=== PATIENT | female | born 1945 | race African-American/Black ===

== ENCOUNTER 2016-10-28 07:08 | Day surgery (SDC) | payer OTHER ==
[2016-10-27 14:55] VITALS: BMI 48.9
[2016-10-28] MEDS ORDERED: LIDOCAINE HCL/PF 2% SDV 5ML VIAL ONE (07:43)
[2016-10-28] MEDS ORDERED: PROPOFOL 40 ML ONE (07:43)
[2016-10-28 08:26] VITALS: TEMP 97.3
[2016-10-28 09:26] VITALS: BP 119/73; PULSE 80
--- NOTE | 2016-10-29 14:03 | PATH ---
Surgical Pathology Report Patient Name: REA TUBBS [facility]. Rec. #: [id number] /Age/Gender: 1945 (Age: 71) / F Account: [id number] Location: ASU-ENDOSCOPY Taken: 10/28/2016 Received: 10/28/2016 Reported: 10/29/2016 Physicians: Ian Strange M.D. Specimen(s) Received BX ILEAL POLYP Clinical History History of colon cancer, family history of colon cancer Diverticulosis, ileal polyp, patent anastomosis Final Diagnosis ILEAL POLYP, BIOPSY: ILEAL TUBULAR ADENOMA. Comment: No high grade dysplasia identified and examined material. Electronically Signed Apolinar Austin M.D. Gross Description Received in formalin, labeled "biopsy ileal polyp" is a pineda, irregular portion of soft tissue measuring 0.3 cm in greatest dimension. The specimen is submitted in toto in one cassette. /10/28/201610/28/2016
== END 2016-10-28 09:25 | disposition home or self-care (01) ==
LOC: JASU-ENDO 07:08
PROVIDERS: ATTEND Internal Medicine Gastroenterology
PROC: 0DBB8ZX Excision of Ileum, Via Natural or Artificial Opening Endoscopic, Diagnostic (ICD-10-PCS; principal; 2016-10-28 08:00)
DX: Z12.11 Encounter for screening for malignant neoplasm of colon (principal); Z85.038 Personal history of other malignant neoplasm of large intestine; K57.30 Diverticulosis of large intestine without perforation or abscess without bleeding; K63.5 Polyp of colon; K64.8 Other hemorrhoids
CPT/HCPCS: 88305-TC

== ENCOUNTER 2018-01-31 12:11 | Inpatient (IN) | payer OTHER ==
--- NOTE | 2018-01-31 13:08 | PDOC ---
History of Present Illness - General History Source: Patient Exam Limitations: No Limitations - History of Present Illness Initial Comments: 01/31/18 13:17 Patient is a 72-year-old female with past medical history of colon cancer status post resection in 2001, diabetes, hypertension, hyperlipidemia, kidney stones, obesity, DVT, PE, hemorrhoids status post banding on 01/25/18, who presents to the emergency department today for right lower quadrant pain, nausea and vomiting. Patient states that when she went home from the hospital on 01/26/18 she felt well and had no residual symptoms. She woke up this morning unable to keep any food or fluids down. She states that her pain started last night and kept her up as she cannot get comfortable. She tried taking Tylenol this morning however she vomited it shortly after taking it. Denies fevers, chills, sore throat, shortness of breath, difficulty breathing, chest pain, palpitations, edema, diarrhea, constipation, frequency, urgency and hematuria. PCP: Dr. Hien Sparks GI: Dr. Collado <Lani Zarco - Last Filed: 02/01/18 10:13> <Megan Corcoran - Last Filed: 02/01/18 12:21> - General Chief Complaint: Pain, Acute Stated Complaint: VOMITTING Time Seen by Provider: 01/31/18 12:25 Past History - Travel Traveled outside of the country in the last 30 days: Yes Close contact w/someone who was outside of country & ill: No - Past Medical History Asthma: No Cancer: Yes (colon) Cardiac Disorders: Yes (P.E) COPD: No Diabetes: Yes GI Disorders: Yes (COLON POLYPS) HTN: Yes Hypercholesterolemia: Yes Kidney Stones: Yes - Surgical History Abdominal Surgery: Yes (COLON RESECTION) Cholecystectomy: Yes Lung Surgery: Yes (clot extravagation) - Suicide/Smoking/Psychosocial Hx Smoking History: Former smoker Have you smoked in the past 12 months: No If you are a former smoker, when did you quit?: 2001 Information on smoking cessation initiated: No Hx Alcohol Use: No Drug/Substance Use Hx: No Substance Use Type: None <Lani Zarco - Last Filed: 02/01/18 10:13> <Megan Corcoran - Last Filed: 02/01/18 12:21> - Past Medical History Allergies/Adverse Reactions: Allergies Allergy/AdvReac Type Severity Reaction Status Date / Time apple Allergy Verified 01/22/18 02:37 pear Allergy Verified 01/22/18 02:38 simethicone Allergy Verified 01/20/18 17:36 GAS RELIEF TABLET Allergy Severe ANAPHYLAXIS Uncoded 01/20/18 09:58 Home Medications: Ambulatory Orders Amlodipine Besylate [Norvasc -] 5 mg PO DAILY 12/04/14 Enalapril Maleate [Vasotec -] 20 mg PO BID 12/04/14 Lovastatin 40 mg PO HS 12/04/14 Metoprolol Tartrate [Lopressor -] 25 mg PO BID 12/04/14 Warfarin Na [Coumadin -] 5 mg PO DAILY 12/04/14 Ergocalciferol (Vitamin D2) [Vitamin D2] 2,000 unit PO DAILY 10/27/16 Glipizide 5 mg PO DAILY 10/27/16 Latanoprost 0.005% Eye Drops [Xalatan 0.005% Eye Drops -] 1 drop OP HS 10/27/16 Warfarin Sodium [Coumadin] 1 mg PO SUSA 10/27/16 metFORMIN HCL [Glucophage -] 500 mg PO DAILY 10/27/16 Acetaminophen [Tylenol .Regular Strength -] 325 mg PO Q4HPO PRN tablet Albuterol 0.083% Nebulizer Sapna [Ventolin 0.083% Nebulizer Soln -] 1 amp NEB Q4H PRN 90 Days #90 amp 01/26/18 Budesonide/Formeterol Fumarate [SYMBICORT 160/4.5mcg -] 2 puff IH BID inhaler 01/26/18 Pantoprazole Sodium [Protonix -] 20 mg PO DAILY tablet.ec 01/26/18 Polyethylene Glycol 3350 [Miralax 119 gm Btl -] 17 gm PO DAILY bottle 01/26/18 Review of Systems - Review of Systems Able to Perform ROS?: Yes Comments:: 01/31/18 13:14 CONSTITUTIONAL: Absent: fever, chills, diaphoresis, generalized weakness, malaise, loss of appetite HEENT: Absent: rhinorrhea, nasal congestion, throat pain, throat swelling, difficulty swallowing, mouth swelling, ear pain, eye pain, visual Changes CARDIOVASCULAR: Absent: chest pain, loss of consciousness, palpitations, irregular heart rate, peripheral edema RESPIRATORY: Absent: cough, shortness of breath, dyspnea with exertion, orthopnea, wheezing, stridor, hemoptysis GASTROINTESTINAL: Present: R lower abdominal pain, nausea, vomiting. Absent: abdominal distension , diarrhea, constipation, melena, hematochezia GENITOURINARY: Absent: dysuria, frequency, urgency, hesitancy, hematuria, flank pain, genital pain MUSCULOSKELETAL: Absent: myalgia, arthralgia, joint swelling SKIN: Absent: rash, itching, pallor HEMATOLOGIC/IMMUNOLOGIC: Absent: easy bleeding, easy bruising, lymphadenopathy, frequent infections ENDOCRINE: Absent: unexplained weight gain, unexplained weight loss, heat intolerance, cold intolerance NEUROLOGIC: Absent: headache, focal weakness or paresthesias, dizziness, unsteady gait, seizure, mental status changes, bladder or bowel incontinence PSYCHIATRIC: Absent: anxiety, depression, suicidal or homicidal ideation, hallucinations. Is the patient limited Uzbek proficient: No <Lani Zarco - Last Filed: 02/01/18 10:13> *Physical Exam - Vital Signs Last Vital Signs Temp Pulse Resp BP Pulse Ox 98.3 F 88 20 141/74 99 01/31/18 12:23 01/31/18 12:23 01/31/18 12:23 01/31/18 12:23 01/31/18 12:23 - Physical Exam Comments: 01/31/18 13:15 GENERAL: Well developed, well nourished. Awake and alert. In mild distress, laying on exam bed appears uncomfortable. HEENT: Normocephalic, atraumatic. PERRLA, EOMI. No conjunctival pallor. Sclera are non- icteric. Moist mucous membranes. Oropharynx is clear. NECK: Supple. Full ROM. No JVD. Carotid pulses 2+ and symmetric, without bruits. No thyromegaly. No lymphadenopathy. CARDIOVASCULAR: Regular rate and rhythm. No murmurs, rubs, or gallops. Distal pulses are 2+ and symmetric. PULMONARY: No evidence of respiratory distress. Lungs clear to auscultation bilaterally. No wheezing, rales or rhonchi. ABDOMINAL: TTP of the R lower quadrant/flank. (+) rovsing sign. Soft. Non-tender. Non- distended. No guarding. No organomegaly. Normoactive bowel sounds. MUSCULOSKELETAL Normal range of motion at all joints. No bony deformities or tenderness. No CVA tenderness. EXTREMITIES: No cyanosis. No clubbing. No edema. No calf tenderness. SKIN: Warm and dry. Normal capillary refill. No rashes. No jaundice. NEUROLOGICAL: Alert, awake, appropriate. Cranial nerves 2-12 intact. No deficits to light touch and temperature in face, upper extremities and lower extremities. No motor deficits in the in face, upper extremities and lower extremities. Normoreflexic in the upper and lower extremities. Normal speech. Toes are down- going bilaterally. Gait is normal without ataxia. PSYCHIATRIC: Cooperative. Good eye contact. Appropriate mood and affect. <Lani Zarco - Last Filed: 02/01/18 10:13> - Vital Signs Last Vital Signs Temp Pulse Resp BP Pulse Ox 97.6 F 86 18 122/63 97 02/01/18 07:06 02/01/18 07:06 02/01/18 07:06 02/01/18 07:06 02/01/18 03:00 <Megan Corcoran - Last Filed: 02/01/18 12:21> ED Treatment Course - LABORATORY CBC & Chemistry Diagram: 02/01/18 06:40 02/01/18 06:40 <Lani Zarco - Last Filed: 02/01/18 10:13> - LABORATORY CBC & Chemistry Diagram: 02/01/18 06:40 02/01/18 06:40 - ADDITIONAL ORDERS Additional order review: 01/31/18 15:20 RBC 4.47 MCV 75.2 L MCHC 31.2 L RDW 18.6 H MPV 9.1 Neutrophils % 88.8 H D Lymphocytes % 6.7 L D Monocytes % 3.6 L Eosinophils % 0.1 D Basophils % 0.8 - Medications Given in the ED: ED Medications Discontinued Medications Generic Name Dose Route Start Last Admin Trade Name Freq PRN Reason Stop Dose Admin Acetaminophen 1,000 mg 01/31/18 13:16 01/31/18 15:20 Ofirmev Injection - IVPB 01/31/18 13:17 1,000 mg ONCE ONE Administration Diphenhydramine HCl 12.5 mg 01/31/18 18:36 01/31/18 20:50 Benadryl Injection - IVPUSH 01/31/18 18:37 Not Given ONCE ONE Sodium Chloride 1,000 mls @ 1,000 mls/hr 01/31/18 13:16 01/31/18 15:28 Normal Saline - IV 01/31/18 14:15 1,000 mls/hr ASDIR STA Administration Sodium Chloride 1,000 mls @ 1,000 mls/hr 01/31/18 16:57 01/31/18 17:59 Normal Saline - IV 01/31/18 17:56 1,000 mls/hr ASDIR STA Administration Vancomycin HCl 1,000 mg/ 250 mls @ 166.667 mls/hr 01/31/18 17:41 01/31/18 21: 31 Dextrose IVPB 01/31/18 19:10 166.667 mls/hr ONCE ONE Administration Protocol Piperacillin Sod/Tazobactam 50 mls @ 100 mls/hr 01/31/18 17:42 01/31/18 19:57 Sod 3.375 gm/ Dextrose IVPB 01/31/18 18:11 100 mls/hr ONCE ONE Administration Protocol Sodium Chloride 1,000 mls @ 42 mls/hr 02/01/18 01:15 02/01/18 03:05 Normal Saline - IV 02/02/18 01:04 42 mls/hr ASDIR CARR[place] Administration Metoclopramide HCl 10 mg 01/31/18 18:36 01/31/18 20:50 Reglan Injection - IVPB 01/31/18 18:37 Not Given ONCE ONE Morphine Sulfate 4 mg 01/31/18 18:01 01/31/18 19:43 Morphine Injection - IVPUSH 01/31/18 18:02 4 mg ONCE ONE Administration Ondansetron HCl 4 mg 01/31/18 13:16 01/31/18 15:15 Zofran Injection IVPUSH 01/31/18 13:17 4 mg ONCE ONE Administration Ondansetron HCl 4 mg 01/31/18 18:01 01/31/18 19:43 Zofran Injection IVPUSH 01/31/18 18:02 4 mg ONCE ONE Administration Sodium Chloride 1,000 ml 01/31/18 23:37 02/01/18 00:06 Normal Saline - IV 01/31/18 23:38 1,000 ml ONCE ONE Administration <Megan Corcoran - Last Filed: 02/01/18 12:21> Medical Decision Making - Medical Decision Making 01/31/18 13:55 Patient is a 72-year-old female with past medical history of colon cancer status post resection in 2001, diabetes, hypertension, hyperlipidemia, kidney stones, obesity, DVT, PE, hemorrhoids status post banding on 01/25/18, who presents to the emergency department today for right lower quadrant pain, nausea and vomiting. On exam pt very tender in the RLQ. Past hospitalization reviewed, pt was d/c on 01/26/18 after banding for internal hemorrhoids. Possible colitis, vs diverticulitis, vs abscess vs appendicitis. 1. CBC, CMP, PT/INR, UA, UC, lactic acid 2. CTAP with oral contrast only 3. IV fluids, zofran, ofirmev 4. Re-evaluate 01/31/18 14:29 Lactic acid elevated at 2.4. Second liter of fluids ordered at this time. Pt reports some improvement of her symptoms at this time. Cr elevated to 1.5, up from 1.2 on her d/c on 01/26/18. No leukocytosis, however there is a left shift. Pt has not started drinking at this time d/t lack of pitchers in the ED. 01/31/18 16:00 Pt. reporting pain again at this time. Morphine and zofran ordered. Repeat lactic acid up to 2.9, will continue to fluid bolus the pt. Blood cultures ordered at this time and will empirically cover the pt with vancomycin and zosyn. 01/31/18 18:21 Pt refuses to drink contrast as she is still nausous. Reglan and benadryl ordered. CTAP to now be performed without oral contrast. 01/31/18 19:[address] at this time. I suspect given pain, nausea, recent surgery, elevated lactic acid that the patient will need to be hospitalized. Sign out given to DONTE Wood. <Lani Zarco - Last Filed: 02/01/18 10:13> *DC/Admit/Observation/Transfer <Lani Zarco - Last Filed: 02/01/18 10:13> - Attestations Physician Attestion: I reviewed the case with the mid-level practitioner and agree with the mid- level practitioner's assessment, diagnosis and disposition. <Megan Corcoran - Last Filed: 02/01/18 12:21> Diagnosis at time of Disposition: Renal colic on right side, Lactic acidosis
[2018-01-31] MEDS ORDERED: ONDANSETRON 4 MG/2 ML VIAL IVPUSH ONE ×2 (13:16→18:01)
[2018-01-31] MEDS ORDERED: SODIUM CHLORIDE 1,000 ML IV STA ×2 (13:16→16:57)
[2018-01-31] MEDS ORDERED: ACETAMINOPHEN 1000 MG/100 ML VIAL (NON FORMULARY) IVPB ONE (13:16)
[2018-01-31] MEDS ORDERED: ACETAMINOPHEN INJECTION 100 ML IVPB ONE (15:00)
[2018-01-31] MEDS ORDERED: ONDANSETRON 4 MG/2 ML VIAL ONE ×2 (15:01→19:29)
[2018-01-31 15:33] LABS: INR 1.6 (0.82-1.09); PROTHROMBIN TIME (PATIENT) 18.1 SEC (9.7-13.0)
[2018-01-31 15:42] LABS: BASO % 0.8 % (0-2.0); EOS % 0.1 % (0-4.5); HEMATOCRIT 33.6 % (32.4-45.2); HEMOGLOBIN 10.5 GM/dL (10.7-15.3); LYMPH % 6.7 % (8-40); MCH 23.4 pg (25.7-33.7); MCHC 31.2 g/dl (32.0-36.0); MEAN CELL VOLUME 75.2 fl (80-96); MEAN PLT VOLUME 9.1 fl (7.5-11.1); MONO % 3.6 % (3.8-10.2); NEUT % 88.8 % (42.8-82.8); PLATELET COUNT 322 K/MM3 (134-434); RBC 4.47 M/mm3 (3.60-5.2); RDW 18.6 % (11.6-15.6)
[2018-01-31 15:43] LABS: ALBUMIN 3.6 g/dl (3.4-5.0); ALK PHOS 62 U/L (45-117); ANION GAP 9 (8-16); BILIRUBIN,TOTAL 0.5 mg/dL (0.2-1.0); BLOOD UREA NITROGEN 14 mg/dL (7-18); CHLORIDE 107 mmol/L (98-107); CO2 24 mmol/L (21-32); CREATININE 1.5 mg/dL (0.55-1.02); GLUCOSE,RANDOM 205 mg/dL (74-106); SGPT/ALT 31 U/L (12-78); SODIUM 140 mmol/L (136-145); TOT PROT 7.4 g/dl (6.4-8.2)
[2018-01-31 15:45] LABS: POTASSIUM 4.4 mmol/L (3.5-5.1); SGOT/AST 23 U/L (15-37)
[2018-01-31] MEDS ORDERED: VANCOMYCIN 1,000 MG in DEXTROSE 5%-WATER - 250 ML IVPB ONE (17:41)
[2018-01-31] MEDS ORDERED: PIPERACILLIN/TAZOB 3.375 GM 3.375 GM in DEXTROSE 5%-WATER - 50 ML IVPB ONE (17:42)
[2018-01-31] MEDS ORDERED: morphine CARPU-JECT 4 MG/1 ML DISP.SYRIN IVPUSH ONE (18:01)
[2018-01-31] MEDS ORDERED: METOCLOPRAMIDE HCL INJECTION 10 MG/2 ML VIAL IVPB ONE (18:36)
[2018-01-31 18:53] LABS: PH,URINE 5.5 (5.0-8.0); URINE APPEARANCE CLEAR; URINE BILIRUBIN NEGATIVE (<2.0 mg/dL); URINE COLOR YELLOW; URINE GLUCOSE (UA) NEGATIVE (NEGATIVE); URINE KETONE NEGATIVE (NEGATIVE); URINE LEUK ESTERASE NEGATIVE (NEGATIVE); URINE NITRITE NEGATIVE (NEGATIVE); URINE UROBILINOGEN 0.2 mg/dL (0.2-1.0)
[2018-01-31] MEDS ORDERED: morphine SULFATE 4 MG/ML VIAL ONE (19:29)
[2018-01-31] MEDS ORDERED: VANCOMYCIN 1 GRAM (PRE-DOCKED) 1,000 MG/250 ML BAG IVPB ONE ×2 (19:47→21:25)
[2018-01-31] MEDS ORDERED: PIPERACILLIN/TAZOB 3.375 GM 3.375 GM/50 ML BAG IVPB ONE (19:47)
[2018-01-31] MEDS ORDERED: ONDANSETRON *ODT* 4 MG TABLET ONE (19:59)
--- NOTE | 2018-01-31 21:40 | PDOC ---
*Physical Exam - Vital Signs Last Vital Signs Temp Pulse Resp BP Pulse Ox 98.3 F 18 L 18 123/64 97 01/31/18 12:23 01/31/18 20:47 01/31/18 20:47 01/31/18 20:47 01/31/18 20:47 ED Treatment Course - LABORATORY CBC & Chemistry Diagram: 01/31/18 15:20 01/31/18 15:20 - ADDITIONAL ORDERS Additional order review: Laboratory Results 01/31/18 01/31/18 01/31/18 17:55 17:08 15:20 PT with INR INR Sodium Potassium Chloride Carbon Dioxide Anion Gap BUN Creatinine Creat Clearance w eGFR Random Glucose Lactic Acid 2.9 H* 2.4 H* Calcium Total Bilirubin AST ALT Alkaline Phosphatase Total Protein Albumin Urine Color Yellow Urine Appearance Clear Urine pH 5.5 Ur Specific [place] 1.010 Urine Protein 30 mg/dl Urine Glucose (UA) Negative Urine Ketones Negative Urine Blood Negative Urine Nitrite Negative Urine Bilirubin Negative Urine Urobilinogen 0.2 Ur Leukocyte Esterase Negative 01/31/18 01/31/18 15:20 15:20 PT with INR 18.10 H INR 1.60 H D Sodium 140 Potassium 4.4 Chloride 107 Carbon Dioxide 24 Anion Gap 9 BUN 14 Creatinine 1.5 H Creat Clearance w eGFR 34.04 Random Glucose 205 H Lactic Acid Calcium 9.0 Total Bilirubin 0.5 AST 23 ALT 31 Alkaline Phosphatase 62 D Total Protein 7.4 Albumin 3.6 Urine Color Urine Appearance Urine pH Ur Specific [place] Urine Protein Urine Glucose (UA) Urine Ketones Urine Blood Urine Nitrite Urine Bilirubin Urine Urobilinogen Ur Leukocyte Esterase 01/31/18 15:20 RBC 4.47 MCV 75.2 L MCHC 31.2 L RDW 18.6 H MPV 9.1 Neutrophils % 88.8 H D Lymphocytes % 6.7 L D Monocytes % 3.6 L Eosinophils % 0.1 D Basophils % 0.8 - Medications Given in the ED: ED Medications Discontinued Medications Generic Name Dose Route Start Last Admin Trade Name Freq PRN Reason Stop Dose Admin Acetaminophen 1,000 mg 01/31/18 13:16 01/31/18 15:20 Ofirmev Injection - IVPB 01/31/18 13:17 1,000 mg ONCE ONE Administration Diphenhydramine HCl 12.5 mg 01/31/18 18:36 01/31/18 20:50 Benadryl Injection - IVPUSH 01/31/18 18:37 Not Given ONCE ONE Sodium Chloride 1,000 mls @ 1,000 mls/hr 01/31/18 13:16 01/31/18 15:28 Normal Saline - IV 01/31/18 14:15 1,000 mls/hr ASDIR STA Administration Sodium Chloride 1,000 mls @ 1,000 mls/hr 01/31/18 16:57 01/31/18 17:59 Normal Saline - IV 01/31/18 17:56 1,000 mls/hr ASDIR STA Administration Vancomycin HCl 1,000 mg/ 250 mls @ 166.667 mls/hr 01/31/18 17:41 01/31/18 21: 31 Dextrose IVPB 01/31/18 19:10 166.667 mls/hr ONCE ONE Administration Protocol Piperacillin Sod/Tazobactam 50 mls @ 100 mls/hr 01/31/18 17:42 01/31/18 19:57 Sod 3.375 gm/ Dextrose IVPB 01/31/18 18:11 100 mls/hr ONCE ONE Administration Protocol Metoclopramide HCl 10 mg 01/31/18 18:36 01/31/18 20:50 Reglan Injection - IVPB 01/31/18 18:37 Not Given ONCE ONE Morphine Sulfate 4 mg 01/31/18 18:01 01/31/18 19:43 Morphine Injection - IVPUSH 01/31/18 18:02 4 mg ONCE ONE Administration Ondansetron HCl 4 mg 01/31/18 13:16 01/31/18 15:15 Zofran Injection IVPUSH 01/31/18 13:17 4 mg ONCE ONE Administration Ondansetron HCl 4 mg 01/31/18 18:01 01/31/18 19:43 Zofran Injection IVPUSH 01/31/18 18:02 4 mg ONCE ONE Administration Medical Decision Making - Medical Decision Making 01/31/18 19:39 Patient endorsed to me to follow up with ct scan and dispo patient out to ct scan 01/31/18 23:30 Patient Full Name: ARLEY LUCIA Patient Accession No: [id number] Patient : [id number] Reason for Exam: RLQ PAIN Referring Physician: JEANETTE GALVAN Patient Name: REA TUBBS THIS IS A PRELIMINARY REPORT FROM IMAGING PSYCHOLOGIST EXAM: CT abdomen and pelvis without contrast IMAGES:[id number] DATE OF EXAM: 2018-01-31 20:26:04 REASON FOR EXAM: Right lower quadrant pain COMPARISON: None Findings: Atelectasis and scarring in lung bases. Trace right pleural effusion. Hepatic steatosis. Mild peripheral hepatic nodularity could represent cirrhosis. Cholecystectomy. Pancreas and spleen are grossly unremarkable. Bilateral adrenal thickening, left greater than right. *Bilateral perinephric edema. Moderate right hydroureteronephrosis due to a 6 mm calculus at or just beyond the right ureterovesical junction. No intrarenal calculi. No AAA. IVC filter. Prior partial colon resection. No obvious diverticulitis, small bowel obstruction, free fluid, or free air. Hysterectomy. Individualized dose optimization techniques were used for this CT. THIS DOCUMENT HAS BEEN ELECTRONICALLY SIGNED Gee Pereira MD 01/31/2018 22:36 EST M.D. Please call Imaging Senior Clinical Research Associate [phone] ([phone]) with questions. INTERPRETING RADIOLOGIST: Gee Pereira MD Electronically Signed: Jan 31, 2018 10:37PM EDT Discharge elevation and the lactate patient will be admitted to WITH continued hydration. Case was discussed with Dr. Teran recommended OBS admission. Patient was seen and evaluated her and he controlled with pain medication. CAT scan reports discussed with Dr. Santamaria will see the patient in the morning *DC/Admit/Observation/Transfer Diagnosis at time of Disposition: Renal colic on right side, Lactic acidosis - Discharge Dispostion Decision to Admit order: Yes - Referrals Referrals: Hien Sparks [Primary Care Provider] - - Patient Instructions - Post Discharge Activity
[2018-01-31] MEDS ORDERED: SODIUM CHLORIDE 0.9% 500 ML INFUS.BAG IV ONE (23:37)
[2018-02-01] MEDS ORDERED: MORPHINE SULFATE 2 MG/ML VIAL IVPUSH PRN ×2 (01:06→16:42)
[2018-02-01] MEDS ORDERED: ONDANSETRON 4 MG/2 ML VIAL IVPUSH PRN ×4 (01:09→16:42)
[2018-02-01] MEDS ORDERED: SODIUM CHLORIDE 1,000 ML IV SCH ×3 (01:15→16:42)
--- NOTE | 2018-02-01 02:04 | HP ---
CHIEF COMPLAINT: Abdominal pain, nausea/vomiting PCP: Dr. Nuñez HISTORY OF PRESENT ILLNESS: The patient is a 72 yo f w/ PMH Colon Ca s/p resection 2001, DM, HTN, DVT/PE, Nephrolithiasis x3 who comes into the ED c/o a 1 day hx nausea, vomiting and abdominal pain. The patient began to experience suprapubic pain. She described the pain as cramping in quality, 8/10 in intensity and no exacerbating or alleviating factors. Over time, the pain moved to the patient's lower abdomen and became associated with nausea and vomiting. The patient's last solid meal was last night. The patient denies fever, chills, chest pain. Patient has SOB at baseline 2/2 her smoking history and damage from her PE. ER course was notable for: (1) CT AP showing rt sided 6mm renal stone at UVJ with right sided hydro (2) Lactic acidosis 2.4 -> 2.9 PAST MEDICAL HISTORY: DVT/PE in 2001 just prior to her colon Ca resection Colon Ca Nephrolithiasis x3. Patient had lithotrypsy twice and cysto once. HTN HLD DM PAST SURGICAL HISTORY: Colonic resection 2001 cholecystectomy thrombectomy 2001 Social History: Smoking: quit 2001 Alcohol: denies Drugs: denies Family History: Extensive family hx of cancer with multiple family members with multiple types of cancer including leukemia, colon, prostate Allergies apple Allergy (Verified 01/22/18 02:37) pear Allergy (Verified 01/22/18 02:38) simethicone Allergy (Verified 01/20/18 17:36) GAS RELIEF TABLET Allergy (Severe, Uncoded 01/20/18 09:58) ANAPHYLAXIS HOME MEDICATIONS: Home Medications Medication Instructions Recorded Amlodipine Besylate [Norvasc -] 5 mg PO DAILY 12/04/14 Enalapril Maleate [Vasotec -] 20 mg PO BID 12/04/14 Lovastatin 40 mg PO HS 12/04/14 Metoprolol Tartrate [Lopressor -] 25 mg PO BID 12/04/14 Warfarin Na [Coumadin -] 5 mg PO DAILY 12/04/14 Ergocalciferol (Vitamin D2) 2,000 unit PO DAILY 10/27/16 [Vitamin D2] Glipizide 5 mg PO DAILY 10/27/16 Latanoprost 0.005% Eye Drops 1 drop OP HS 10/27/16 [Xalatan 0.005% Eye Drops -] Warfarin Sodium [Coumadin] 1 mg PO SUSA 10/27/16 metFORMIN HCL [Glucophage -] 500 mg PO DAILY 10/27/16 Acetaminophen [Tylenol .Regular 325 mg PO Q4HPO PRN tablet 01/26/18 Strength -] Albuterol 0.083% Nebulizer Sapna 1 amp NEB Q4H PRN 90 Days #90 amp 01/26/18 [Ventolin 0.083% Nebulizer Soln -] Budesonide/Formeterol Fumarate 2 puff IH BID inhaler 01/26/18 [SYMBICORT 160/4.5mcg -] Pantoprazole Sodium [Protonix -] 20 mg PO DAILY tablet.ec 01/26/18 Polyethylene Glycol 3350 [Miralax 17 gm PO DAILY bottle 01/26/18 119 gm Btl -] REVIEW OF SYSTEMS CONSTITUTIONAL: Absent: fever, chills, diaphoresis, generalized weakness, malaise, loss of appetite, weight change HEENT: Absent: rhinorrhea, nasal congestion, throat pain, throat swelling, difficulty swallowing, mouth swelling, ear pain, eye pain, visual changes CARDIOVASCULAR: Absent: chest pain, syncope, palpitations, irregular heart rate, lightheadedness , peripheral edema RESPIRATORY: Absent: cough, orthopnea, wheezing, stridor, hemoptysis GASTROINTESTINAL: Absent: abdominal distension, diarrhea, constipation, melena, hematochezia GENITOURINARY: Absent: dysuria, frequency, urgency, hesitancy, hematuria, flank pain MUSCULOSKELETAL: Absent: myalgia, arthralgia, joint swelling, back pain, neck pain SKIN: Absent: rash, itching, pallor HEMATOLOGIC/IMMUNOLOGIC: Absent: easy bleeding, easy bruising, lymphadenopathy, frequent infections ENDOCRINE: Absent: unexplained weight gain, unexplained weight loss, heat intolerance, cold intolerance NEUROLOGIC: Absent: headache, focal weakness or paresthesias, dizziness, unsteady gait, seizure, mental status changes, bladder or bowel incontinence PSYCHIATRIC: Absent: anxiety, depression, suicidal or homicidal ideation, hallucinations. PHYSICAL EXAMINATION Vital Signs - 24 hr 01/31/18 01/31/18 12:23 20:47 Temperature 98.3 F Pulse Rate 88 Pulse Rate [ 18 L Radial] Respiratory 20 18 Rate Blood Pressure 141/74 Blood Pressure 123/64 [Left Arm] O2 Sat by Pulse 99 97 Oximetry (%) GENERAL: Awake, alert, and fully oriented, in no acute distress. HEAD: Normal with no signs of trauma. EYES: Pupils equal, round and reactive to light, extraocular movements intact, sclera anicteric, conjunctiva clear. No lid lag. EARS, NOSE, THROAT: oropharynx clear without exudates. Dry mucous membranes. NECK: Normal range of motion, supple without lymphadenopathy, JVD, or masses. LUNGS: Breath sounds equal, clear to auscultation bilaterally. No wheezes, and no crackles. No accessory muscle use. HEART: Regular rate and rhythm, normal S1 and S2 without murmur, rub or gallop. ABDOMEN: Soft, mild tenderness to palpation in lower quadrants. No CVA tenderness, not distended, normoactive bowel sounds, no guarding, no rebound, no masses. No hepatomegaly or splenomegaly. LOWER EXTREMITIES: 2+ pulses, warm, well-perfused. No calf tenderness. 1+ peripheral edema. NEUROLOGICAL: Cranial nerves II-X intact. Normal speech. Strength 5/5 in both upper extremities. PSYCHIATRIC: Cooperative. Good eye contact. Appropriate mood and affect. SKIN: Warm, dry, normal turgor, no rashes or lesions noted, normal capillary refill. Laboratory Results - last 24 hr 01/31/18 01/31/18 01/31/18 15:20 15:20 15:20 WBC 10.0 RBC 4.47 Hgb 10.5 L Hct 33.6 D MCV 75.2 L MCH 23.4 L MCHC 31.2 L RDW 18.6 H Plt Count 322 D MPV 9.1 Absolute Neuts (auto) 8.9 Neutrophils % 88.8 H D Lymphocytes % 6.7 L D Monocytes % 3.6 L Eosinophils % 0.1 D Basophils % 0.8 Nucleated RBC % 0 PT with INR 18.10 H INR 1.60 H D Sodium 140 Potassium 4.4 Chloride 107 Carbon Dioxide 24 Anion Gap 9 BUN 14 Creatinine 1.5 H Creat Clearance w eGFR 34.04 Random Glucose 205 H Lactic Acid Calcium 9.0 Total Bilirubin 0.5 AST 23 ALT 31 Alkaline Phosphatase 62 D Total Protein 7.4 Albumin 3.6 Urine Color Urine Appearance Urine pH Ur Specific Foster Urine Protein Urine Glucose (UA) Urine Ketones Urine Blood Urine Nitrite Urine Bilirubin Urine Urobilinogen Ur Leukocyte Esterase 07/01/18 07/01/18 07/01/18 15:20 17:08 17:55 WBC RBC Hgb Hct MCV MCH MCHC RDW Plt Count MPV Absolute Neuts (auto) Neutrophils % Lymphocytes % Monocytes % Eosinophils % Basophils % Nucleated RBC % PT with INR INR Sodium Potassium Chloride Carbon Dioxide Anion Gap BUN Creatinine Creat Clearance w eGFR Random Glucose Lactic Acid 2.4 H* 2.9 H* Calcium Total Bilirubin AST ALT Alkaline Phosphatase Total Protein Albumin Urine Color Yellow Urine Appearance Clear Urine pH 5.5 Ur Specific Foster 1.010 Urine Protein 30 mg/dl Urine Glucose (UA) Negative Urine Ketones Negative Urine Blood Negative Urine Nitrite Negative Urine Bilirubin Negative Urine Urobilinogen 0.2 Ur Leukocyte Esterase Negative ASSESSMENT/PLAN: The patient is a 72 yo m w/ PMH Colon ca, DVT/PE, nephrolithiasis x3 who comes in c/o nausea, vomiting, abdominal pain found to have 6mm stone. #nausea, vomiting abdominal pain 2/2 nephrolithiasis -afebrile, normal WBC -Dr. Santamaria contacted from the ED, will assess patient in the AM -Pain control 2mg morphine Q4h -Zofran 4mg q6h PRN nausea -s/p vanc, zosyn in ED -NPO #Lactic acidosis likely 2/2 dehydration -NS @ 100 -trend in AM #DM -BGM Q4H -ISS Q4H -holding home hypoglycemics #HTN -resume home norvasc 5mg -resume home vasotec 20mg BID -resume home toprolol 25 BID #DVT/PE -on coumadin; did not receive PM dose -INR subtheraputic on admission -holding in anticipation of possible procedure -bridging AC not required as PE greater than 6 months ago -AC should be resumed after procedure #FEN -NS @ 100 -lytes WNL, replete PRN -NPO #Prophylaxsis -SCDs until after procedure #Dispo -admit Med Surg Visit type - Emergency Visit Emergency Visit: Yes ED Registration Date: 01/31/18 Care time: The patient presented to the Emergency Department on the above date and was hospitalized for further evaluation of their emergent condition. - New Patient This patient is new to me today: Yes Date on this admission: 02/01/18 - Critical Care Critical Care patient: No Hospitalist Screening - Colonoscopy Questionnaire Colonoscopy Questionnaire: Colonoscopy Questionnaire - Patient: 50 - 75 years old and never had a screening colonoscopy: Unknown History of colon or rectal polyps, or CA: Yes History of IBD, Crohn's disease or UC: Unknown History of abdominal radiation therapy as a child: Unknown - Relative: 1 with colon or rectal CA, or polyps at age 60 or younger: Unknown Colon or rectal CA diagnosed at age 45 or younger: Unknown Multiple relatives with colon or rectal CA: Unknown - Outcome: Screening Result: Positive Screen
[2018-02-01] MEDS: INSULIN SLIDING SCALE (NOVOLOG) 1 VIAL SQ SCH ×6 (02:57→21:42)
[2018-02-01 03:49] VITALS: BMI 46.7
--- NOTE | 2018-02-01 06:14 | PN ---
Teaching Attending Note Name of Resident: Olivier Redman ATTENDING PHYSICIAN STATEMENT I saw and evaluated the patient. I reviewed the resident's note and discussed the case with the resident. I agree with the resident's findings and plan as documented. SUBJECTIVE: 72F with history of nephrolithiasis p/w RLQ abd pain, Nausea, vomiting, unable to tolerate PO, found to have a 6mm obstrucitng stone at Rt ureterovesicular junction with associated hydronephrosis Urology referral Zofran for nausea IVF for mild dehydration on Coumadin for DVT/PE 2001 hold until Urology eval for possible procedure
[2018-02-01] MEDS: glipiZIDE 5 MG TABLET (FP) PO SCH ×2 (06:28→06:36)
[2018-02-01 07:51] LABS: ALBUMIN 2.9 g/dl (3.4-5.0); BLOOD UREA NITROGEN 12 mg/dL (7-18); CALCIUM 8.2 mg/dL (8.5-10.1); CHLORIDE 114 mmol/L (98-107); INR 1.73 (0.82-1.09); POTASSIUM 3.7 mmol/L (3.5-5.1); PROTHROMBIN TIME (PATIENT) 19.5 SEC (9.7-13.0); SODIUM 144 mmol/L (136-145)
[2018-02-01 07:54] LABS: ACTIVATED PTT 31.8 SECONDS (25.2-36.5)
[2018-02-01 07:57] LABS: ALK PHOS 51 U/L (45-117); ANION GAP 7 (8-16); BILIRUBIN,TOTAL 0.6 mg/dL (0.2-1.0); CO2 23 mmol/L (21-32); CREATININE 1.3 mg/dL (0.55-1.02); GLUCOSE,RANDOM 112 mg/dL (74-106); MAGNESIUM 1.9 mg/dL (1.8-2.4); PHOSPHOROUS 3.2 mg/dL (2.5-4.9); SGOT/AST 17 U/L (15-37); SGPT/ALT 25 U/L (12-78)
[2018-02-01 09:06] LABS: HEMOGLOBIN 8.7 GM/dL (10.7-15.3); MCH 23.5 pg (25.7-33.7); MEAN CELL VOLUME 75.9 fl (80-96); PLATELET COUNT 270 K/MM3 (134-434); RDW 18.3 % (11.6-15.6); WHITE BLOOD COUNT 7.4 K/mm3 (4.0-10.0)
[2018-02-01] MEDS ORDERED: BUDESONIDE/FORMETEROL FUMARATE 160/4.5 mcg INHALER IH SCH (10:00)
[2018-02-01] MEDS ORDERED: amLODIPine BESYLATE 5 MG TABLET (FP) PO SCH (10:00)
[2018-02-01] MEDS ORDERED: METOPROLOL TARTRATE 25 MG TABLET (FP) PO SCH (10:00)
[2018-02-01] MEDS ORDERED: WARFARIN NA 5 MG TABLET (UD) PO SCH (10:00)
[2018-02-01] MEDS ORDERED: PANTOPRAZOLE 20 MG TABLET (FP) PO SCH (10:00)
[2018-02-01] MEDS ORDERED: ENALAPRIL MALEATE 10 MG TABLET (FP) PO SCH (10:00)
[2018-02-01] MEDS ORDERED: PT OWN MED DRAWER 7, Y5N ONE ×2 (10:35→21:08)
--- NOTE | 2018-02-01 10:40 | EKG ---
Test Reason : Blood Pressure : / mmHG Vent. Rate : 086 BPM Atrial Rate : 086 BPM P-R Int : 148 ms QRS Dur : 080 ms QT Int : 368 ms P-R-T Axes : 069 039 085 degrees QTc Int : 440 ms NORMAL SINUS RHYTHM NONSPECIFIC T WAVE ABNORMALITY ABNORMAL ECG WHEN COMPARED WITH ECG OF 20-JAN-2018 10:15, NO SIGNIFICANT CHANGE WAS FOUND Confirmed by MURRAY ORANTES MD ([id number]) on 02/01/2018 10:39:54 AM Referred By: Confirmed By:MURRAY ORANTES MD
--- NOTE | 2018-02-01 15:15 | CON.GU ---
Consult - History of Present Illness History of Present Illness: 72 yo female with h/o nephrolithiaisis, now with acute onset rt renal colic secondary to a 6mm obstructing stone in right distal ureter. elevated lactic acid, creat 1.3 - Past Medical History Cardio/Vascular: Yes: CHF, Deep Vein Thrombosis, HTN Pulmonary: Yes: COPD Gastrointestinal: Yes: Cancer, Other (ileal adenoma removed 10/17) Renal/: Yes: Renal Inusuff, Renal Calculi Musculoskeletal: Yes: Osteoarthritis Endocrine: Yes: Diabetes Mellitus (NIDDMII) Additional Medical History: Morbid obesity - Past Surgical History Past Surgical History: Yes: Cholecystectomy (EARLY , laparoscopic), Hysterectomy - Alcohol/Substance Use Hx Alcohol Use: No History of Substance Use: reports: None - Smoking History Smoking history: Former smoker Have you smoked in the past 12 months: No If you are a former smoker, when did you quit?: 2001 - Social History Usual Living Arrangement: Alone ADL: Independent History of Recent Travel: No Home Medications - Allergies Allergies/Adverse Reactions: Allergies Allergy/AdvReac Type Severity Reaction Status Date / Time apple Allergy Verified 01/22/18 02:37 pear Allergy Verified 01/22/18 02:38 simethicone Allergy Verified 01/20/18 17:36 GAS RELIEF TABLET Allergy Severe ANAPHYLAXIS Uncoded 01/20/18 09:58 - Home Medications Home Medications: Ambulatory Orders Amlodipine Besylate [Norvasc -] 5 mg PO DAILY 12/04/14 Enalapril Maleate [Vasotec -] 20 mg PO BID 12/04/14 Lovastatin 40 mg PO HS 12/04/14 Metoprolol Tartrate [Lopressor -] 25 mg PO BID 12/04/14 Warfarin Na [Coumadin -] 5 mg PO DAILY 12/04/14 Ergocalciferol (Vitamin D2) [Vitamin D2] 2,000 unit PO DAILY 10/27/16 Glipizide 5 mg PO DAILY 10/27/16 Latanoprost 0.005% Eye Drops [Xalatan 0.005% Eye Drops -] 1 drop OP HS 10/27/16 Warfarin Sodium [Coumadin] 1 mg PO SUSA 10/27/16 metFORMIN HCL [Glucophage -] 500 mg PO DAILY 10/27/16 Acetaminophen [Tylenol .Regular Strength -] 325 mg PO Q4HPO PRN tablet Albuterol 0.083% Nebulizer Sapna [Ventolin 0.083% Nebulizer Soln -] 1 amp NEB Q4H PRN 90 Days #90 amp 01/26/18 Budesonide/Formeterol Fumarate [SYMBICORT 160/4.5mcg -] 2 puff IH BID inhaler 01/26/18 Pantoprazole Sodium [Protonix -] 20 mg PO DAILY tablet.ec 01/26/18 Polyethylene Glycol 3350 [Miralax 119 gm Btl -] 17 gm PO DAILY bottle 01/26/18 Family Disease History - Family Disease History Family Disease History: Heart Disease: Son (NM age 52 ()), CA: Father ( Colon cancer dx age 80's ()), Brother (2 brothers with prostate cancer ( )), Sister (Colon cancer dx age 64 ()), Other: Mother (Stroke ( )) Physical Exam- Vital Signs: Vital Signs Temperature 98.9 F 02/01/18 10:00 Pulse Rate 91 H 02/01/18 10:00 Respiratory Rate 18 02/01/18 10:00 Blood Pressure 131/73 02/01/18 10:00 O2 Sat by Pulse Oximetry (%) 97 02/01/18 03:00 Renal/: Yes: Other (no heme) Kidneys: Yes: WNL Labs: CBC, BMP 02/01/18 06:40 02/01/18 06:40 Imaging - Results Ultrasound: Image Reviewed Problem List - Problems (1) Renal colic on right side Assessment/Plan: will plan for cysto/stent placement Code(s): N23 - UNSPECIFIED RENAL COLIC
[2018-02-01] MEDS ORDERED: PROPOFOL 20 ML ONE (15:25)
[2018-02-01] MEDS ORDERED: PROMETHAZINE HCL 25 MG/1 ML VIAL IVPUSH PRN ×2 (15:29→16:42)
[2018-02-01] MEDS ORDERED: LACTATED RINGERS SOLUTION 1,000 ML IV SCH ×2 (15:30→16:42)
[2018-02-01] MEDS ORDERED: AMPICILLIN NA/SULBACTAM NA 3 GM/100 ML PRE-DOCKED IVPB ONE (15:40)
[2018-02-01] MEDS ORDERED: AMPICILLIN NA/SULBACTAM NA 1.5 GM VIAL ONE ×2 (15:43)
--- NOTE | 2018-02-01 16:05 | OP ---
Operative Note - Note: Operative Date: 02/01/18 Pre-Operative Diagnosis: RDU stone Operation: cysto/retro/rt stent placement Findings: RDU stone Post-Operative Diagnosis: Same as Pre-op Surgeon: Fermin Santiago Anesthesia: General Drains & Tubes with Location: 7fr, 24cm stent Operative Report Dictated: Yes
--- NOTE | 2018-02-01 16:25 | PN ---
Teaching Attending Note Name of Resident: Elvira Milligan ATTENDING PHYSICIAN STATEMENT I saw and evaluated the patient. I reviewed the resident's note and discussed the case with the resident. I agree with the resident's findings and plan as documented. SUBJECTIVE:states abdominal pain is improved. states nausea and vomiting has resolved. denies Cp,SOB, fever, chills, N/V/C/D OBJECTIVE: Last Vital Signs Temp Pulse Resp BP Pulse Ox 99.3 F 86 20 143/81 97 02/01/18 15:19 02/01/18 15:19 02/01/18 15:19 02/01/18 15:19 02/01/18 03:00 General NAD CV S1 S2 RRR no murmur/rub/gallop Lungs CTA B/L no wheezing/rales/rhonchi Abdomen soft NT/ND obese Extremities no pedal edema ASSESSMENT AND PLAN: 72yo F with PMH nephrolithasis, DVT/PE s/p thrombectomy on coumadin and HTN presented to the ER with RLQ pain with nausea and vomiting 1. R nephrolithasis- hx of uric acid stones. NPO for stent placement and possible lithotripsy. cont IVF and pain control. urology consulted. received abx in the ER. will d/c as not indicated at this itme. 2. SIDDHARTH- due to dehydration. imrpoved. hold nephrotoxic agents 3. LActic acidosis- due to metformin. now resolved. hold metformin 4. Subtherapeutic INR- pt states she had hemorrhoidectomy last week and coumadin was held. just restarted 3 days ago. will re-start coumadin post procedure 5. Microcytic anemia- likely hemoconcentrated when first arrived. Hgb at baseline. will repeat CBC to ensure staying stable. no indication for transfusion 6. DVT ppx- coumadin 7. possible d/c after procedure pending if any complication
[2018-02-01 20:38] LABS: HEMATOCRIT 30.1 % (32.4-45.2); HEMOGLOBIN 9.2 GM/dL (10.7-15.3); MCH 23.3 pg (25.7-33.7); MCHC 30.5 g/dl (32.0-36.0); MEAN CELL VOLUME 76.2 fl (80-96); MEAN PLT VOLUME 8.8 fl (7.5-11.1); PLATELET COUNT 305 K/MM3 (134-434); RBC 3.94 M/mm3 (3.60-5.2); RDW 18.3 % (11.6-15.6); WHITE BLOOD COUNT 6.2 K/mm3 (4.0-10.0)
--- NOTE | 2018-02-01 20:42 | PN ---
Physical Exam: SUBJECTIVE: Patient seen and examined upright in her bed. She says her abdominal pain has improved. Denies any fevers, chillsc, chest pain, SOB, nausea vomiting. OBJECTIVE: Vital Signs Period Temp Pulse Resp BP Sys/Funez Pulse Ox Last 24 Hr 97.6 F-99.5 F 18-96 18-20 122-149/63-84 97-97 GENERAL: The patient is awake, alert, and fully oriented, in no acute distress. LUNGS: Breath sounds equal, clear to auscultation bilaterally, no wheezes, no crackles HEART: Regular rate and rhythm, S1, S2 without murmur, rub or gallop. ABDOMEN: Obese, Soft, nontender, nondistended, normoactive bowel sounds, no guarding, no rebound, no dullness to percussion Laboratory Results - last 24 hr 02/01/18 02/01/18 02/01/18 02:56 06:27 06:40 WBC 7.4 RBC 3.70 Hgb 8.7 L Hct 28.0 L D MCV 75.9 L MCH 23.5 L MCHC 31.0 L RDW 18.3 H Plt Count 270 MPV 9.0 PT with INR INR PTT (Actin FS) Sodium Potassium Chloride Carbon Dioxide Anion Gap BUN Creatinine Creat Clearance w eGFR POC Glucometer 143 135 Random Glucose Lactic Acid Calcium Phosphorus Magnesium Total Bilirubin AST ALT Alkaline Phosphatase Total Protein Albumin 02/01/18 02/01/18 02/01/18 06:40 06:40 08:43 WBC RBC Hgb Hct MCV MCH MCHC RDW Plt Count MPV PT with INR 19.50 H INR 1.73 H PTT (Actin FS) 31.8 Sodium 144 Potassium 3.7 Chloride 114 H Carbon Dioxide 23 Anion Gap 7 L BUN 12 Creatinine 1.3 H Creat Clearance w eGFR 40.15 POC Glucometer Random Glucose 112 H Lactic Acid 0.9 Calcium 8.2 L Phosphorus 3.2 Magnesium 1.9 Total Bilirubin 0.6 AST 17 ALT 25 Alkaline Phosphatase 51 D Total Protein 6.0 L Albumin 2.9 L 02/01/18 02/01/18 12:37 17:46 WBC RBC Hgb Hct MCV MCH MCHC RDW Plt Count MPV PT with INR INR PTT (Actin FS) Sodium Potassium Chloride Carbon Dioxide Anion Gap BUN Creatinine Creat Clearance w eGFR POC Glucometer 150 107 Random Glucose Lactic Acid Calcium Phosphorus Magnesium Total Bilirubin AST ALT Alkaline Phosphatase Total Protein Albumin Active Medications Amlodipine Besylate (Norvasc -) 5 mg PO DAILY COUNT INCLUDES THE [facility] Atorvastatin Calcium (Lipitor -) 10 mg PO HS COUNT INCLUDES THE [facility] Budesonide/Formoterol Fumarate (Symbicort 160/4.5mcg -) 2 puff IH BID COUNT INCLUDES THE [facility] Enalapril Maleate (Vasotec -) 20 mg PO BID COUNT INCLUDES THE [facility] Glipizide (Glucotrol -) 5 mg PO DAILY@0700 COUNT INCLUDES THE [facility] Sodium Chloride (Normal Saline -) 1,000 mls @ 100 mls/hr IV ASDIR COUNT INCLUDES THE [facility] Last Admin: 02/01/18 17:00 Dose: 0 mls Insulin Aspart (Novolog Vial Sliding Scale -) 1 vial SQ Q4HPO COUNT INCLUDES THE [facility]; Protocol Last Admin: 02/01/18 17:47 Dose: Not Given Latanoprost (Xalatan 0.005% Eye Drops -) 1 drop OU HS COUNT INCLUDES THE [facility] Metoprolol Tartrate (Lopressor -) 25 mg PO BID COUNT INCLUDES THE [facility] Morphine Sulfate (Morphine Sulfate) 2 mg IVPUSH Q4H PRN PRN Reason: PAIN LEVEL 6-10 Ondansetron HCl (Zofran Injection) 4 mg IVPUSH Q6H PRN PRN Reason: NAUSEA Ondansetron HCl (Zofran Injection) 4 mg IVPUSH Q6H PRN PRN Reason: NAUSEA AND/OR VOMITING Stop: 02/02/18 03:00 Pantoprazole Sodium (Protonix -) 20 mg PO DAILY COUNT INCLUDES THE [facility] ASSESSMENT/PLAN: 72 y/o F with PMHx of recurrent nephrolithasis, DVT/PE s/p thrombectomy in 2001 and HTN presents to the ER with RLQ pain with nausea and vomiting 1. Nephrolithasis - Hx of uric acid stones as per chart review - Kept NPO (except for medications) for stent placement and possible lithotripsy - Continue IVF - Continue pain control with Morphine Sulfate 2mg Q4H PRN - Urology (Dr. Santiago) consulted: will plan for cysto/stent placement - Received Vancomycin and Zosyn in the ER. will not continue at this time 2. Lactic acidosis - 2.4 up to 2.9 in the ED - Due to metformin - Improved with IVF to 0.9 - Hold metformin 3. SIDDHARTH - BUN 12, Cr 1.3 - Due to dehydration/obstruction - Improved with IVF - Hold nephrotoxic agents 4. DVT/PE - Currently Subtherapeutic INR - Patient states she has a filter and is on Coumadin 5mg PO Daily for life however she recently had a hemorrhoidectomy and her Coumadin was held. It was just restarted 3 days ago. - We will restart coumadin tonight, post cysto/stent placement 5. Microcytic anemia - Due to hemoconcentration upon first arrival - Hgb at baseline - Repeat CBC 6. DVT ppx - Coumadin 5mg PO Daily Dispo: possible d/c tmrw Visit type - Emergency Visit Emergency Visit: Yes ED Registration Date: 01/31/18 Care time: The patient presented to the Emergency Department on the above date and was hospitalized for further evaluation of their emergent condition. - New Patient This patient is new to me today: Yes Date on this admission: 02/01/18 - Critical Care Critical Care patient: No
[2018-02-01] MEDS: ENALAPRIL MALEATE 10 MG TABLET (FP) PO SCH (21:37)
[2018-02-01] MEDS: METOPROLOL TARTRATE 25 MG TABLET (FP) PO SCH (21:37)
[2018-02-01] MEDS: BUDESONIDE/FORMETEROL FUMARATE 160/4.5 mcg INHALER IH SCH (21:43)
--- NOTE | 2018-02-01 21:44 | OP ---
DATE OF OPERATION: 02/01/2018 PREOPERATIVE DIAGNOSIS: Obstructing right distal ureteral stone. POSTOPERATIVE DIAGNOSIS: Obstructing right distal ureteral stone. PROCEDURE: Cystoscopy, retrograde pyelogram, right ureteral stent placement. SURGEON: Wayne Gentile MD INDICATIONS: The patient is a 72-year-old female noted to have obstructing stone in the right distal ureter with elevated creatinine and elevated lactic acid. She is taken for a cystoscopy and stent placement. She understood the risks of bleeding, infection, and potential need for additional procedures including requiring a procedure to come back and have the stone broken up. DESCRIPTION OF PROCEDURE: After informed consent was obtained, the patient was taken to the OR and placed supine on the table. electronic device monitor and administration of general anesthesia was established. She was prepped and draped in the dorsal lithotomy position. The 22-sheath cystoscope was introduced into the urethra without difficulty. The bladder was visualized. No tumors or stones were noted in the bladder. Attention was turned to the right ureteral orifice. This was intubated with the ureteral catheter and contrast was injected for retrograde pyelogram. There was hydronephrosis down to the level of the distal ureter and a stone was seen. A guidewire was advanced beyond the stone into the right renal pelvis. Over the guidewire, a 7-Slovenian 24-cm double pigtail stent was then advanced in the Owens fashion. Fluoroscopy confirmed the sent to be in good position. Patient was then awoke from anesthesia and transferred to the recovery room in stable condition. There were no complications. Estimated blood loss was minimal. WAYNE GENTILE M.D. [id number]
[2018-02-01] MEDS ORDERED: ATORVASTATIN CA 10 MG TABLET (FP) PO SCH ×2 (22:00)
[2018-02-01] MEDS ORDERED: LATANOPROST 0.005% OPHTH SOLN 2.5ML BOTTLE OU SCH ×2 (22:00)
[2018-02-02] MEDS: INSULIN SLIDING SCALE (NOVOLOG) 1 VIAL SQ SCH ×4 (02:00→15:03)
[2018-02-02] MEDS ORDERED: glipiZIDE 5 MG TABLET (FP) PO SCH (07:00)
[2018-02-02] MEDS ORDERED: ACETAMINOPHEN 325 MG TABLET (FP) PO PRN (09:05)
[2018-02-02] MEDS ORDERED: PT OWN MED DRAWER 7, Y5N ONE (09:36)
[2018-02-02] MEDS: ENALAPRIL MALEATE 10 MG TABLET (FP) PO SCH (09:51)
[2018-02-02] MEDS: METOPROLOL TARTRATE 25 MG TABLET (FP) PO SCH (09:51)
[2018-02-02] MEDS: BUDESONIDE/FORMETEROL FUMARATE 160/4.5 mcg INHALER IH SCH (09:53)
[2018-02-02] MEDS ORDERED: PANTOPRAZOLE 20 MG TABLET (FP) PO SCH (10:00)
[2018-02-02] MEDS ORDERED: amLODIPine BESYLATE 5 MG TABLET (FP) PO SCH (10:00)
[2018-02-02 10:19] LABS: BASO % 0.7 % (0-2.0); EOS % 2.1 % (0-4.5); HEMATOCRIT 33.1 % (32.4-45.2); HEMOGLOBIN 10.2 GM/dL (10.7-15.3); LYMPH % 15.1 % (8-40); MCH 23.4 pg (25.7-33.7); MEAN CELL VOLUME 75.6 fl (80-96); MEAN PLT VOLUME 8.6 fl (7.5-11.1); MONO % 8.2 % (3.8-10.2); NEUT % 73.9 % (42.8-82.8); PLATELET COUNT 319 K/MM3 (134-434); RBC 4.38 M/mm3 (3.60-5.2); RDW 18.4 % (11.6-15.6); WHITE BLOOD COUNT 8.1 K/mm3 (4.0-10.0)
--- NOTE | 2018-02-02 10:41 | PN ---
Progress Note (short form) - Note Progress Note: pt clinically doing well pain improved w stent VSS no signs of SIRS 6 mm right uvj stone Will plan def tx next week December d/c home if no med indication for hospitalization
[2018-02-02 10:49] LABS: INR 1.47 (0.82-1.09); PROTHROMBIN TIME (PATIENT) 16.6 SEC (9.7-13.0)
[2018-02-02 12:11] LABS: ALBUMIN 3.5 g/dl (3.4-5.0); ANION GAP 10 (8-16); BLOOD UREA NITROGEN 10 mg/dL (7-18); CHLORIDE 113 mmol/L (98-107); CO2 23 mmol/L (21-32); CREATININE 1.3 mg/dL (0.55-1.02); GLUCOSE,RANDOM 136 mg/dL (74-106); PHOSPHOROUS 2.5 mg/dL (2.5-4.9); POTASSIUM 3.9 mmol/L (3.5-5.1); SGOT/AST 17 U/L (15-37); SGPT/ALT 28 U/L (12-78); SODIUM 146 mmol/L (136-145)
[2018-02-02 12:13] LABS: ALK PHOS 61 U/L (45-117); BILIRUBIN,TOTAL 0.6 mg/dL (0.2-1.0); TOT PROT 6.9 g/dl (6.4-8.2)
--- NOTE | 2018-02-02 14:47 | PN ---
Teaching Attending Note Name of Resident: Elvira Milligan ATTENDING PHYSICIAN STATEMENT I saw and evaluated the patient. I reviewed the resident's note and discussed the case with the resident. I agree with the resident's findings and plan as documented with exceptions below. SUBJECTIVE: patient seen and examined, no complaints. eating well, eager to go home, no complaints. OBJECTIVE: Vital Signs Period Temp Pulse Resp BP Sys/Funez Pulse Ox Last 24 Hr 98.6 F-99.5 F 78-96 18-20 128-143/68-81 97-98 Intake & Output 01/30/18 01/31/18 02/01/18 02/02/18 23:59 23:59 23:59 23:59 Intake Total 1550 1200 Output Total 500 600 Balance 1050 600 Weight 243 lb 247 lb 5.738 oz General: sitting at edge of bed in no acute distress Abdomen:Soft, nT, obese, no CVA tenderness Home Medications Medication Instructions Recorded Amlodipine Besylate [Norvasc -] 5 mg PO DAILY 12/04/14 Enalapril Maleate [Vasotec -] 20 mg PO BID 12/04/14 Lovastatin 40 mg PO HS 12/04/14 Metoprolol Tartrate [Lopressor -] 25 mg PO BID 12/04/14 Warfarin Na [Coumadin -] 5 mg PO ASDIR 12/04/14 Ergocalciferol (Vitamin D2) 2,000 unit PO DAILY 10/27/16 [Vitamin D2] Glipizide 5 mg PO DAILY 10/27/16 Latanoprost 0.005% Eye Drops 1 drop OP HS 10/27/16 [Xalatan 0.005% Eye Drops -] Warfarin Sodium [Coumadin] 6 mg PO SUSA 10/27/16 metFORMIN HCL [Glucophage -] 500 mg PO DAILY 10/27/16 Acetaminophen [Tylenol .Regular 325 mg PO Q4HPO PRN tablet 01/26/18 Strength -] Albuterol 0.083% Nebulizer Sapna 1 amp NEB Q4H PRN 90 Days #90 amp 01/26/18 [Ventolin 0.083% Nebulizer Soln -] Budesonide/Formeterol Fumarate 2 puff IH BID inhaler 01/26/18 [SYMBICORT 160/4.5mcg -] Pantoprazole Sodium [Protonix -] 20 mg PO DAILY tablet.ec 01/26/18 Polyethylene Glycol 3350 [Miralax 17 gm PO DAILY bottle 01/26/18 119 gm Btl -] Active Medications Acetaminophen (Tylenol -) 650 mg PO Q6H PRN PRN Reason: PAIN LEVEL 6-10 Amlodipine Besylate (Norvasc -) 5 mg PO DAILY [facility] Last Admin: 02/02/18 09:51 Dose: 5 mg Atorvastatin Calcium (Lipitor -) 10 mg PO HS [facility] Last Admin: 02/01/18 21:37 Dose: 10 mg Budesonide/Formoterol Fumarate (Symbicort 160/4.5mcg -) 2 puff IH BID [facility] Last Admin: 02/02/18 09:53 Dose: 2 puff Enalapril Maleate (Vasotec -) 20 mg PO BID [facility] Last Admin: 02/02/18 09:51 Dose: 20 mg Glipizide (Glucotrol -) 5 mg PO DAILY@0700 [facility] Last Admin: 02/02/18 06:15 Dose: 5 mg Insulin Aspart (Novolog Vial Sliding Scale -) 1 vial SQ Q4HPO [facility]; Protocol Last Admin: 02/02/18 11:07 Dose: Not Given Latanoprost (Xalatan 0.005% Eye Drops -) 1 drop OU HS [facility] Last Admin: 02/01/18 22:30 Dose: 1 drop Metoprolol Tartrate (Lopressor -) 25 mg PO BID [facility] Last Admin: 02/02/18 09:51 Dose: 25 mg Ondansetron HCl (Zofran Injection) 4 mg IVPUSH Q6H PRN PRN Reason: NAUSEA Pantoprazole Sodium (Protonix -) 20 mg PO DAILY [facility] Last Admin: 02/02/18 09:51 Dose: 20 mg Warfarin Sodium (Coumadin -) 5 mg PO DAILY@1800 [facility] Laboratory Results - last 24 hr 02/01/18 02/01/18 02/01/18 17:46 20:15 21:39 WBC 6.2 RBC 3.94 Hgb 9.2 L Hct 30.1 L MCV 76.2 L MCH 23.3 L MCHC 30.5 L RDW 18.3 H Plt Count 305 MPV 8.8 Absolute Neuts (auto) Neutrophils % Lymphocytes % Monocytes % Eosinophils % Basophils % Nucleated RBC % PT with INR INR Sodium Potassium Chloride Carbon Dioxide Anion Gap BUN Creatinine Creat Clearance w eGFR POC Glucometer 107 148 Random Glucose Calcium Phosphorus Magnesium Total Bilirubin AST ALT Alkaline Phosphatase Total Protein Albumin Blood Type Antibody Screen 02/02/18 02/02/18 02/02/18 05:42 09:50 09:50 WBC 8.1 RBC 4.38 Hgb 10.2 L Hct 33.1 MCV 75.6 L MCH 23.4 L MCHC 31.0 L RDW 18.4 H Plt Count 319 MPV 8.6 Absolute Neuts (auto) 6.0 Neutrophils % 73.9 Lymphocytes % 15.1 D Monocytes % 8.2 D Eosinophils % 2.1 D Basophils % 0.7 Nucleated RBC % 0 PT with INR INR Sodium 146 H Potassium 3.9 Chloride 113 H Carbon Dioxide 23 Anion Gap 10 BUN 10 Creatinine 1.3 H Creat Clearance w eGFR 40.15 POC Glucometer 129 Random Glucose 136 H Calcium 9.0 Phosphorus 2.5 Magnesium 2.0 Total Bilirubin 0.6 AST 17 ALT 28 Alkaline Phosphatase 61 D Total Protein 6.9 Albumin 3.5 Blood Type Antibody Screen 02/02/18 02/02/18 02/02/18 09:50 10:30 11:07 WBC RBC Hgb Hct MCV MCH MCHC RDW Plt Count MPV Absolute Neuts (auto) Neutrophils % Lymphocytes % Monocytes % Eosinophils % Basophils % Nucleated RBC % PT with INR 16.60 H INR 1.47 H Sodium Potassium Chloride Carbon Dioxide Anion Gap BUN Creatinine Creat Clearance w eGFR POC Glucometer 140 Random Glucose Calcium Phosphorus Magnesium Total Bilirubin AST ALT Alkaline Phosphatase Total Protein Albumin Blood Type O POSITIVE Antibody Screen Negative Microbiology 01/31/18 17:55 Urine - Urine Clean Catch Urine Culture - Final Contaminated: Please Repeat 01/31/18 17:53 Blood - Peripheral Venous Blood Culture - Preliminary NO GROWTH OBTAINED AFTER 24 HOURS, INCUBATION TO CONTINUE FOR 4 DAYS. 01/31/18 17:53 Blood - Peripheral Venous Blood Culture - Preliminary NO GROWTH OBTAINED AFTER 24 HOURS, INCUBATION TO CONTINUE FOR 4 DAYS. 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 Cr around baseline. H/h stable. Resume home diabetic medications. Resume coumadin, outpatient urology follow up in [address] Santamaria's office called to discuss coumadin. D/c planning home later today pending above. PLan discussed with patient in detail, all questions answered.
[2018-02-02] MEDS ORDERED: INSULIN SLIDING SCALE (NOVOLOG) 1 VIAL SQ SCH (16:30)
[2018-02-02 17:02] VITALS: BP 129/77; PULSE 76; TEMP 98.4
[2018-02-02] MEDS ORDERED: WARFARIN NA 5 MG TABLET (UD) PO SCH (18:00)
--- NOTE | 2018-02-02 18:06 | PN ---
Physical Exam: SUBJECTIVE: Patient seen and examined OBJECTIVE: Vital Signs Period Temp Pulse Resp BP Sys/Funez Pulse Ox Last 24 Hr 98.2 F-99.3 F 76-88 18-20 122-143/60-81 97-98 GENERAL: The patient is awake, alert, and fully oriented, in no acute distress. HEAD: Normal with no signs of trauma. EYES: PERRL, extraocular movements intact, sclera anicteric, conjunctiva clear. No ptosis. ENT: Ears normal, nares patent, oropharynx clear without exudates, moist mucous membranes. NECK: Trachea midline, full range of motion, supple. LUNGS: Breath sounds equal, clear to auscultation bilaterally, no wheezes, no crackles, no accessory muscle use. HEART: Regular rate and rhythm, S1, S2 without murmur, rub or gallop. ABDOMEN: Soft, nontender, nondistended, normoactive bowel sounds, no guarding, no rebound, no hepatosplenomegaly, no masses. EXTREMITIES: 2+ pulses, warm, well-perfused, no edema. NEUROLOGICAL: Cranial nerves II through XII grossly intact. Normal speech, gait not observed. PSYCH: Normal mood, normal affect. SKIN: Warm, dry, normal turgor, no rashes or lesions noted Laboratory Results - last 24 hr 02/01/18 02/01/18 02/01/18 17:46 20:15 21:39 WBC 6.2 RBC 3.94 Hgb 9.2 L Hct 30.1 L MCV 76.2 L MCH 23.3 L MCHC 30.5 L RDW 18.3 H Plt Count 305 MPV 8.8 Absolute Neuts (auto) Neutrophils % Lymphocytes % Monocytes % Eosinophils % Basophils % Nucleated RBC % PT with INR INR Sodium Potassium Chloride Carbon Dioxide Anion Gap BUN Creatinine Creat Clearance w eGFR POC Glucometer 107 148 Random Glucose Calcium Phosphorus Magnesium Total Bilirubin AST ALT Alkaline Phosphatase Total Protein Albumin Blood Type Antibody Screen 02/02/18 02/02/18 02/02/18 05:42 09:50 09:50 WBC 8.1 RBC 4.38 Hgb 10.2 L Hct 33.1 MCV 75.6 L MCH 23.4 L MCHC 31.0 L RDW 18.4 H Plt Count 319 MPV 8.6 Absolute Neuts (auto) 6.0 Neutrophils % 73.9 Lymphocytes % 15.1 D Monocytes % 8.2 D Eosinophils % 2.1 D Basophils % 0.7 Nucleated RBC % 0 PT with INR INR Sodium 146 H Potassium 3.9 Chloride 113 H Carbon Dioxide 23 Anion Gap 10 BUN 10 Creatinine 1.3 H Creat Clearance w eGFR 40.15 POC Glucometer 129 Random Glucose 136 H Calcium 9.0 Phosphorus 2.5 Magnesium 2.0 Total Bilirubin 0.6 AST 17 ALT 28 Alkaline Phosphatase 61 D Total Protein 6.9 Albumin 3.5 Blood Type Antibody Screen 02/02/18 02/02/18 02/02/18 09:50 10:30 11:07 WBC RBC Hgb Hct MCV MCH MCHC RDW Plt Count MPV Absolute Neuts (auto) Neutrophils % Lymphocytes % Monocytes % Eosinophils % Basophils % Nucleated RBC % PT with INR 16.60 H INR 1.47 H Sodium Potassium Chloride Carbon Dioxide Anion Gap BUN Creatinine Creat Clearance w eGFR POC Glucometer 140 Random Glucose Calcium Phosphorus Magnesium Total Bilirubin AST ALT Alkaline Phosphatase Total Protein Albumin Blood Type O POSITIVE Antibody Screen Negative 02/02/18 17:12 WBC RBC Hgb Hct MCV MCH MCHC RDW Plt Count MPV Absolute Neuts (auto) Neutrophils % Lymphocytes % Monocytes % Eosinophils % Basophils % Nucleated RBC % PT with INR INR Sodium Potassium Chloride Carbon Dioxide Anion Gap BUN Creatinine Creat Clearance w eGFR POC Glucometer 131 Random Glucose Calcium Phosphorus Magnesium Total Bilirubin AST ALT Alkaline Phosphatase Total Protein Albumin Blood Type Antibody Screen ASSESSMENT/PLAN:
--- NOTE | 2018-02-02 22:41 | DS ---
Physical Exam: SUBJECTIVE: Patient seen and examined in her bed. No New complaints. Denies any fevers, chills, chest pain, SOB, nausea vomiting. OBJECTIVE: Vital Signs Period Temp Pulse Resp BP Sys/Funez Pulse Ox Last 24 Hr 98.2 F-98.7 F 76-83 18-20 122-134/60-77 97 Vital Signs Temp 98.4 F 02/02/18 16:30 Pulse 76 02/02/18 16:30 Resp 18 02/02/18 16:30 BP 129/77 02/02/18 16:30 Pulse Ox 97 02/02/18 09:00 Intake & Output 02/01/18 02/02/18 02/02/18 23:59 11:59 23:59 Intake Total 1150 900 300 Output Total 500 600 Balance 650 300 300 Intake: IV 1150 900 Normal Saline - 1,000 ml 550 900 @ 100 mls/hr IV ASDIR CARRINGTON Rx#:[id number] Oral 300 Output: Urine 500 600 Void 500 600 Other: Voiding Method Toilet Toilet Toilet Bowel Movement No Yes PHYSICAL EXAM GENERAL: The patient is awake, alert, and fully oriented, in no acute distress. LUNGS: Breath sounds equal, clear to auscultation bilaterally, no wheezes, no crackles HEART: Regular rate and rhythm, S1, S2 without murmur, rub or gallop. ABDOMEN: Obese, Soft, nontender, nondistended, normoactive bowel sounds, no guarding, no rebound, no dullness to percussion LABS Laboratory Results - last 24 hr 02/02/18 02/02/18 02/02/18 05:42 09:50 09:50 WBC 8.1 RBC 4.38 Hgb 10.2 L Hct 33.1 MCV 75.6 L MCH 23.4 L MCHC 31.0 L RDW 18.4 H Plt Count 319 MPV 8.6 Absolute Neuts (auto) 6.0 Neutrophils % 73.9 Lymphocytes % 15.1 D Monocytes % 8.2 D Eosinophils % 2.1 D Basophils % 0.7 Nucleated RBC % 0 PT with INR INR Sodium 146 H Potassium 3.9 Chloride 113 H Carbon Dioxide 23 Anion Gap 10 BUN 10 Creatinine 1.3 H Creat Clearance w eGFR 40.15 POC Glucometer 129 Random Glucose 136 H Calcium 9.0 Phosphorus 2.5 Magnesium 2.0 Total Bilirubin 0.6 AST 17 ALT 28 Alkaline Phosphatase 61 D Total Protein 6.9 Albumin 3.5 Blood Type Antibody Screen 02/02/18 02/02/18 02/02/18 09:50 10:30 11:07 WBC RBC Hgb Hct MCV MCH MCHC RDW Plt Count MPV Absolute Neuts (auto) Neutrophils % Lymphocytes % Monocytes % Eosinophils % Basophils % Nucleated RBC % PT with INR 16.60 H INR 1.47 H Sodium Potassium Chloride Carbon Dioxide Anion Gap BUN Creatinine Creat Clearance w eGFR POC Glucometer 140 Random Glucose Calcium Phosphorus Magnesium Total Bilirubin AST ALT Alkaline Phosphatase Total Protein Albumin Blood Type O POSITIVE Antibody Screen Negative 02/02/18 17:12 WBC RBC Hgb Hct MCV MCH MCHC RDW Plt Count MPV Absolute Neuts (auto) Neutrophils % Lymphocytes % Monocytes % Eosinophils % Basophils % Nucleated RBC % PT with INR INR Sodium Potassium Chloride Carbon Dioxide Anion Gap BUN Creatinine Creat Clearance w eGFR POC Glucometer 131 Random Glucose Calcium Phosphorus Magnesium Total Bilirubin AST ALT Alkaline Phosphatase Total Protein Albumin Blood Type Antibody Screen Microbiology 01/31/18 17:53 Blood - Peripheral Venous Blood Culture - Final NO GROWTH AFTER 5 DAYS INCUBATION 01/31/18 17:53 Blood - Peripheral Venous Blood Culture - Final NO GROWTH AFTER 5 DAYS INCUBATION 01/31/18 17:55 Urine - Urine Clean Catch Urine Culture - Final Contaminated: Please Repeat Ambulatory Orders Amlodipine Besylate [Norvasc -] 5 mg PO DAILY 12/04/14 Enalapril Maleate [Vasotec -] 20 mg PO BID 12/04/14 Lovastatin 40 mg PO HS 12/04/14 Metoprolol Tartrate [Lopressor -] 25 mg PO BID 12/04/14 Warfarin Na [Coumadin -] 5 mg PO ASDIR 12/04/14 Ergocalciferol (Vitamin D2) [Vitamin D2] 2,000 unit PO DAILY 10/27/16 Glipizide 5 mg PO DAILY 10/27/16 Latanoprost 0.005% Eye Drops [Xalatan 0.005% Eye Drops -] 1 drop OP HS 10/27/16 Warfarin Sodium [Coumadin] 6 mg PO SUSA 10/27/16 metFORMIN HCL [Glucophage -] 500 mg PO DAILY 10/27/16 Acetaminophen [Tylenol .Regular Strength -] 325 mg PO Q4HPO PRN tablet Albuterol 0.083% Nebulizer Sapna [Ventolin 0.083% Nebulizer Soln -] 1 amp NEB Q4H PRN 90 Days #90 amp 01/26/18 Budesonide/Formeterol Fumarate [SYMBICORT 160/4.5mcg -] 2 puff IH BID inhaler 01/26/18 Pantoprazole Sodium [Protonix -] 20 mg PO DAILY tablet.ec 01/26/18 Polyethylene Glycol 3350 [Miralax 119 gm Btl -] 17 gm PO DAILY bottle 01/26/18 HOSPITAL COURSE: Date of Admission:02/02/18 Date of Discharge: 02/02/18 Prehospital course as per Dr. Olivier Redman Patient is a 72 yo f w/ PMH Colon Ca s/p resection 2001, DM, HTN, DVT/PE, Nephrolithiasis x3 who comes into the ED c/o a 1 day hx nausea, vomiting and abdominal pain. The patient began to experience suprapubic pain. She described the pain as cramping in quality, 8/10 in intensity and no exacerbating or alleviating factors. Over time, the pain moved to the patient's lower abdomen and became associated with nausea and vomiting. The patient's last solid meal was last night. The patient denies fever, chills, chest pain. Patient has SOB at baseline 2/2 her smoking history and damage from her PE. Hospital Course Patient was admitted on 02/02 for Abdominal pain secondary to Nephrolithiasis. As per Urology's recommendations, a cystoscopy was performed and right ureteral stent was placed. Patient completed a one dose course of Vancomycin and Zosyn in the ED. Blood cultures were negative and Antibiotics were not continued. Her pain was well controlled with Morphine 2mg. Patients Lactic acidosis and SIDDHARTH resolved. Patient will follow up with surgeon in his office next week. She will be seeing her primary, Dr. Sparks this , 02/04. Minutes to complete discharge: 40 Discharge Summary Reason For Visit: LACTIC ACIDOSIS RENAL COLIC RIGHT SIDE Condition: Good - Instructions Diet, Activity, Other Instructions: You came to the hospital because of belly pain and vomiting Catscan showed you had an obstructive stone in your right kidney You got stents placed in that kidney Follow up with Dr. Santiago in his office in one week, Call to make an appointment Follow up with Dr. Sparks in her office on February 04 Take tylenol as needed for pain Continue all of your home medications Your INR was subtherapeutic We are resuming home dose of coumadin Follow up with your primary physician for INR check this You are on a medication (coumadin) that increases your risk for bleeding. Take precautions against falls for bleeding. Return to the emergency room if you think you experience fevers, chills, back or belly pain or urinary symptoms. Referrals: Hien Sparks [Primary Care Provider] - 02/04/18 Fermin Santiago MD [Staff Physician] - 1 Week Disposition: HOME - Home Medications Comprehensive Discharge Medication List: Ambulatory Orders Amlodipine Besylate [Norvasc -] 5 mg PO DAILY 12/04/14 Enalapril Maleate [Vasotec -] 20 mg PO BID 12/04/14 Lovastatin 40 mg PO HS 12/04/14 Metoprolol Tartrate [Lopressor -] 25 mg PO BID 12/04/14 Warfarin Na [Coumadin -] 5 mg PO ASDIR 12/04/14 Ergocalciferol (Vitamin D2) [Vitamin D2] 2,000 unit PO DAILY 10/27/16 Glipizide 5 mg PO DAILY 10/27/16 Latanoprost 0.005% Eye Drops [Xalatan 0.005% Eye Drops -] 1 drop OP HS 10/27/16 Warfarin Sodium [Coumadin] 6 mg PO SUSA 10/27/16 metFORMIN HCL [Glucophage -] 500 mg PO DAILY 10/27/16 Acetaminophen [Tylenol .Regular Strength -] 325 mg PO Q4HPO PRN tablet Albuterol 0.083% Nebulizer Sapna [Ventolin 0.083% Nebulizer Soln -] 1 amp NEB Q4H PRN 90 Days #90 amp 01/26/18 Budesonide/Formeterol Fumarate [SYMBICORT 160/4.5mcg -] 2 puff IH BID inhaler 01/26/18 Pantoprazole Sodium [Protonix -] 20 mg PO DAILY tablet.ec 01/26/18 Polyethylene Glycol 3350 [Miralax 119 gm Btl -] 17 gm PO DAILY bottle 01/26/18 This patient is new to me today: No Emergency Visit: No Critical Care patient: No - Discharge Referral Referred to [facility] No
[2018-02-06] MEDS ORDERED: WARFARIN SODIUM 1 MG PO SCH (01:20)
== END 2018-02-02 17:41 | disposition home or self-care (01) | DRG 694 ==
LOC: JER 12:11 → JERBED 23:24 → J8W 02-01 02:43 → OBSVTOIN 02-02 14:07
PROVIDERS: ADMIT Internal Medicine; ATTEND Hospitalist
PROC: 0T768DZ Dilation of Right Ureter with Intraluminal Device, Via Natural or Artificial Opening Endoscopic (ICD-10-PCS; principal; 2018-02-01 14:00)
PROC: BT1DZZZ Fluoroscopy of Right Kidney, Ureter and Bladder (ICD-10-PCS; 2018-02-01 14:00)
DX: N13.2 Hydronephrosis with renal and ureteral calculous obstruction (principal); E87.2 Acidosis; Z68.42 Body mass index [BMI] 45.0-49.9, adult; E87.0 Hyperosmolality and hypernatremia; J98.11 Atelectasis; I10 Essential (primary) hypertension; E78.5 Hyperlipidemia, unspecified; K64.9 Unspecified hemorrhoids; K63.5 Polyp of colon; E86.0 Dehydration; K76.0 Fatty (change of) liver, not elsewhere classified; J44.9 Chronic obstructive pulmonary disease, unspecified; E66.01 Morbid (severe) obesity due to excess calories; N17.9 Acute kidney failure, unspecified; D64.9 Anemia, unspecified; E87.8 Other disorders of electrolyte and fluid balance, not elsewhere classified; I12.9 Hypertensive chronic kidney disease with stage 1 through stage 4 chronic kidney disease, or unspecified chronic kidney disease; E11.22 Type 2 diabetes mellitus with diabetic chronic kidney disease; N18.3 Chronic kidney disease, stage 3 (moderate); Z85.038 Personal history of other malignant neoplasm of large intestine; Z87.891 Personal history of nicotine dependence; Z86.711 Personal history of pulmonary embolism; Z86.718 Personal history of other venous thrombosis and embolism
CPT/HCPCS: 36415; 74176-TC; 76000-TC-FY; 80053; 81003; 82962; 83605; 83735; 84100; 85025; 85027; 85610; 85730; 86850; 86900; 86901; 87040; 87086; 93005; 93010; 94760; 99283-25; G0378; J0131; J7030

== ENCOUNTER 2018-02-18 09:15 | Day surgery (SDC) | payer OTHER ==
[2018-02-17 17:28] VITALS: BMI 45.9
[2018-02-18] MEDS ORDERED: cefTRIAXone SODIUM 1 GM VIAL IVPB ONE ×2 (12:00→12:07)
[2018-02-18] MEDS ORDERED: oxyCODONE HCL 5 MG TABLET PO PRN (12:50)
--- NOTE | 2018-02-18 12:52 | OP ---
Operative Note - Note: Operative Date: 02/18/18 Pre-Operative Diagnosis: RDU stone Operation: cysto/laser litho/stent Findings: RDU stone Post-Operative Diagnosis: Same as Pre-op Anesthesia: General Estimated Blood Loss (mls): 2 Drains & Tubes with Location: 7fr 24cm stent Operative Report Dictated: Yes
[2018-02-18] MEDS ORDERED: ELECTROLYTE-148 SOLN 1,000 ML IV SCH (13:00)
[2018-02-18] MEDS ORDERED: ONDANSETRON 4 MG/2 ML VIAL IVPUSH PRN (13:16)
--- NOTE | 2018-02-18 13:21 | OP ---
DATE OF OPERATION: 02/18/2018 PREOPERATIVE DIAGNOSIS: Right distal ureteral stone. POSTOPERATIVE DIAGNOSIS: Right distal ureteral stone. PROCEDURE: Cystoscopy, right ureteral stent removal, right ureteroscopy, laser lithotripsy of right distal ureteral stone, stone basketing, retrograde pyelogram, and stent placement. SURGEON: Wayne Gentile MD INDICATION: Patient is a 72-year-old female who has previously had a right ureteral stent placed a couple weeks ago for an obstructing stone with UTI in the right distal ureter. She was taken to the OR today for treatment of stone. Patient taken to the OR, placed supine on the operating table. Cardiac monitoring administered. General anesthesia was established. She was prepped and draped in the dorsal supine position. A 22 sheath rigid cystoscope was inserted into the urethra and then into the bladder without difficulty. Bladder was visualized. Stent was seen emanating from the right ureteral orifice. A guidewire was advanced alongside the stent into the right renal pelvis, and this was confirmed under fluoroscopy. At this point, a grasper used to remove the stent. At this point, the semi-rigid ureteroscope was advanced into the distal ureter where an approximately 8-mm stone was seen in the distal ureter. Using the 365-micron laser fiber, the stone was pulverized to fine dust and 1- to 2-mm fragments. These fragments were then removed with stone basket and sent to Pathology for analysis. Repeat ureteroscopy revealed no evidence of any residual stone fragments. Ureteroscope was then removed. Contrast was injected for a retrograde pyelogram. There was mild hydroureteronephrosis. Over remaining guidewire, a 7-Brazilian 24-cm double-pigtail stent was then advanced in a monorail fashion. Fluoroscopy confirmed the stent to be in good position. Patient was then awoken from anesthesia and transferred to recovery room in stable condition. There were no complications. Estimated blood loss was minimal. WAYNE GENTILE M.D. [id number]
[2018-02-18] MEDS ORDERED: LACTATED RINGERS SOLUTION 1,000 ML IV SCH (13:30)
[2018-02-18 13:44] VITALS: BP 149/76; PULSE 71; TEMP 97.3
--- NOTE | 2018-02-19 18:38 | PATH ---
Surgical Pathology Report Patient Name: REA TUBBS Med. Rec. #: [id number] /Age/Gender: 1945 (Age: 72) / F Account: [id number] Location: [facility] Taken: 02/18/2018 Received: 02/18/2018 Reported: 02/19/2018 Physicians: Fermin Santiago M.D. Specimen(s) Received A: FOREIGN BODY RIGHT URETERAL STENT B: CALCULI RIGHT KIDNEY Clinical History Right kidney stone Final Diagnosis A. REMOVED RIGHT URETERAL STENT: SEGMENT OF STENT. GROSS EXAMINATION ONLY. B. RIGHT KIDNEY STONE, REMOVAL: CALCULI, SENT FOR CHEMICAL ANALYSIS. Electronically Signed Jakub Leger M.D. Gross Description A. Received fresh labeled "removed right ureteral stent," is a 35 cm in length blue-green, coiled portion of tubing, consistent with a ureteral stent. No soft tissue is present. No sections are submitted, gross only. B. Received fresh labeled "right kidney stone," are 2 pineda, irregular calculi measuring 0.2 and 0.4 cm in greatest dimension. The specimen is sent for chemical analysis. DL/02/18/2018 saudi/02/18/2018
== END 2018-02-18 14:46 | disposition home or self-care (01) ==
LOC: JASU-SURG 09:15
PROVIDERS: ATTEND Urology
PROC: 0TF68ZZ Fragmentation in Right Ureter, Via Natural or Artificial Opening Endoscopic (ICD-10-PCS; principal; 2018-02-18 11:00)
PROC: 0T768DZ Dilation of Right Ureter with Intraluminal Device, Via Natural or Artificial Opening Endoscopic (ICD-10-PCS; 2018-02-18 11:00)
PROC: BT1DYZZ Fluoroscopy of Right Kidney, Ureter and Bladder using Other Contrast (ICD-10-PCS; 2018-02-18 11:00)
DX: N20.1 Calculus of ureter (principal)
CPT/HCPCS: 36415; 76000-TC-FY; 82360; 82962; 88300-TC; 94760

== ENCOUNTER 2019-01-24 07:40 | Inpatient (IN) | payer OTHER ==
--- NOTE | 2019-01-24 08:35 | PDOC ---
History of Present Illness - General Chief Complaint: SIRS, Suspected/Possible Stated Complaint: FEVER Time Seen by Provider: 01/24/19 08:12 History Source: Patient Exam Limitations: No Limitations - History of Present Illness Initial Comments: 01/24/19 08:59 HPI 72 YOF with PMH Colon Ca s/p resection 2002, DM, HTN, DVT/PE on coumadin, Nephrolithiasis x3 with obstructed ureterolithiasis s/p stent placement in 2018 who comes into the ED with fever x 3 days, associated with malaise, decreased appetite, nausea, and diffuse abdominal pain. She also endorses lightheadedness , shortness of breath and nonproductive cough, no congestion. No sick contacts or travel. No new changes in medications. No suspicious food intake Allergies: food allergies, simethicone Past Medical History: as documented in EMR/HPI Social history: Lives with family. Surgical history: colon resection, EDGAR, appendectomy, cholecystectomy Meds: as documented in EMR PMD: Dr Sparks Past History - Past Medical History Allergies/Adverse Reactions: Allergies Allergy/AdvReac Type Severity Reaction Status Date / Time apple Allergy Verified 01/24/19 07:52 pear Allergy Verified 01/24/19 07:52 simethicone Allergy Verified 01/24/19 07:52 GAS RELIEF TABLET Allergy Severe ANAPHYLAXIS Uncoded 01/24/19 07:52 Home Medications: Ambulatory Orders Amlodipine Besylate [Norvasc -] 5 mg PO DAILY 12/04/14 Enalapril Maleate [Vasotec -] 20 mg PO BID 12/04/14 Lovastatin 40 mg PO HS 12/04/14 Metoprolol Tartrate [Lopressor -] 25 mg PO BID 12/04/14 Warfarin Na [Coumadin -] 5 mg PO ASDIR 12/04/14 Ergocalciferol (Vitamin D2) [Vitamin D2] 2,000 unit PO DAILY 10/27/16 Glipizide 5 mg PO DAILY 10/27/16 Latanoprost 0.005% Eye Drops [Xalatan 0.005% Eye Drops -] 1 drop OP HS 10/27/16 Warfarin Sodium [Coumadin] 6 mg PO SUSA 10/27/16 metFORMIN HCL [Glucophage -] 500 mg PO DAILY 10/27/16 Budesonide/Formeterol Fumarate [SYMBICORT 160/4.5mcg -] 2 puff IH BID inhaler 01/26/18 Ferrous Sulfate 325 mg PO DAILY 02/17/18 Polyethylene Glycol 3350 [Miralax 119 gm Btl -] 17 gm PO PRN PRN 02/17/18 Anemia: Yes Asthma: No Cancer: Yes (colon) Cardiac Disorders: Yes (P.E) CVA: No COPD: No CHF: No Dementia: No Diabetes: Yes GI Disorders: Yes (COLON POLYPS) Disorders: Yes (KIDNEY STONES) HTN: Yes Hypercholesterolemia: Yes Kidney Stones: Yes Liver Disease: No Seizures: No Thyroid Disease: No - Surgical History Abdominal Surgery: Yes (COLON RESECTION) Appendectomy: (UNSURE) Cardiac Surgery: No Cholecystectomy: Yes Lung Surgery: Yes (clot extravagation) Neurologic Surgery: No Orthopedic Surgery: No - Suicide/Smoking/Psychosocial Hx Smoking History: Never smoked Have you smoked in the past 12 months: No If you are a former smoker, when did you quit?: 2001 Hx Alcohol Use: No Drug/Substance Use Hx: No Substance Use Type: None Hx Substance Use Treatment: No Review of Systems - Review of Systems Able to Perform ROS?: Yes Comments:: 01/24/19 08:29 Review of systems Constitutional: +fevers or chills. +malaise/weakness HEENT: +dizziness, lightheadedness. no headache . No congestion. CVS: no cp or syncope. Resp: +SOB and cough. Gastrointestinal: +abdominal pain, nausea, diarrhea/loose BM. No vomiting. no bloody stools Genitourinary: no urinary sx, hematuria. no dysuria, urgency or frequency MUSCULOSKELETAL: No joint pain and swelling. No neck or back pain. SKIN: no redness or skin changes, no discharge, no rash. No wounds. Hematologic: no easy bruising/bleeding. NEUROLOGIC: +dizziness, No headache, LOC or altered mental status. No weakness, numbness or tingling. Psych: no anxiety or depression Allergic/Immunologic: food allergies All other systems reviewed and negative, or as documented in HPI. *Physical Exam - Vital Signs Last Vital Signs Temp Pulse Resp BP Pulse Ox 99.8 F H 116 H 20 145/82 96 01/24/19 07:52 01/24/19 07:52 01/24/19 07:52 01/24/19 07:52 01/24/19 07:52 - Physical Exam Comments: 01/24/19 08:31 Physical exam: General: Well appearing, awake and alert, NAD. HEENT: NCAT, PERRL, EOMI, pale conjunctiva, anicteric, dry mucus membranes, clear oropharynx, no oral lesions.. Neck: neck supple, FROM Resp: diminished breath sounds in right lower/middle lung field, normal and even respirations, no respiratory distress CVS: +tachycardia, no murmurs, 2+ peripheral pulses throughout, no peripheral edema Abdomen: soft, morbidly obese, old surgical scars from ex-lap. diffusely tender over LUQ, RUQ and RLQ; no CVAT. no rebound or guarding. Back: nontender, normal inspection and ROM MSK: no edema, KIRBY x4, ROM intact. No clubbing or cyanosis. normal bulk and tone. Neuro: alert Skin: warm and well perfused, cap refill <2 sec, normal color for ethnicity. Heart Score/ECG Review #1 ECG reviewed & interpreted by me at: 08:25 General ECG Interpretation: Sinus Rhythm, Normal Intervals Compared to previous ECG there are: Changes noted 01/24/19 09:00 EKG sinus tachycardia at 111 bpm, no interval abnormalities, narrow QRS, ST and T wave segments and morphology normal. Nonspecific T wave abnormalities ED Treatment Course - LABORATORY CBC & Chemistry Diagram: 01/24/19 09:15 01/24/19 09:15 - RADIOLOGY Radiology Studies Ordered: Category Date Time Status ABDOMEN & PELVIS CT WITH CONTR [CT] Stat CT Scan 01/24/19 08:28 Ordered CHEST X-RAY PORTABLE* [RAD] Stat Radiology 01/24/19 08:11 Ordered Medical Decision Making - Medical Decision Making 01/24/19 08:32 See HPI for details. Prior notes reviewed, including admissions, discharges and consultations. Vital signs reviewed, +fever and tachycardia. normal sats, no respiratory distress. DDx abdominal pain: pneumonia. Renal colic, biliary colic, metabolic/ electrolyte derangements. GERD, PUD, esophageal spasm, pancreatitis, hepatitis, constipation, colitis, gastroenteritis, cholecystitis, UTI, pyelonephritis, ileus, SBO, medication side effect, hernia, appendicitis, diverticulitis, mesenteric ischemia. mesenteric adenitis, psoas abscess. laboratory results and imaging reviewed, basic labs and lytes wnl, notable for mild Cr elevation 1.6, renal insufficiency vs dehydration. LFTs/lipase_normal UA_neg for infection. no blood. lactic 2.5, likely from infection vs hypoperfusion, recheck after IVF - improved <2 CXR_no acute chest pathology, sternotomy scar Cardiac panel_negative, reassuring. EKG sinus tachycardia at 111 bpm, no interval abnormalities, narrow QRS, ST and T wave segments and morphology normal. Nonspecific T wave abnormalities ED course -interventions: IV tylenol, zofran and IVF. CT a/p with PO contrast only for elevated Cr, borderline GFR ~30s, no IV contrast only. CT with pneumonia, no intra abdominal pathology, residual ureteral dilation from kidney stones. diverticulosis. CAP coverage with ceftriaxone/azithromycin urine antigen, sputum culture, blood cultures pending repeat VS improved, no longer febrile, HR improved. admit Dr Sparks. medical management, pneumonia/fever/sepsis 01/24/19 13:37 01/24/19 13:47 *DC/Admit/Observation/Transfer Diagnosis at time of Disposition: Sepsis, Lactic acidosis, Pneumonia - Discharge Dispostion Condition at time of disposition: Guarded Decision to Admit order: Yes Decision to Admit order Date/Time: 01/24/19 13:35 Decision to Admit Order Category Date Time Status Decision to Admit to Hospital Routine Admission 01/24/19 13:32 Active - Referrals Referrals: Hien Sparks [Primary Care Provider] - - Patient Instructions - Post Discharge Activity
[2019-01-24] MEDS ORDERED: ACETAMINOPHEN 1000 MG/100 ML VIAL (NON FORMULARY) IVPB ONE (08:54)
[2019-01-24] MEDS ORDERED: ONDANSETRON 4 MG/2 ML VIAL IVPUSH ONE (08:55)
[2019-01-24] MEDS ORDERED: LACTATED RINGERS SOLUTION 1000 ML INFUS.BAG IV ONE ×2 (08:55→08:57)
[2019-01-24] MEDS ORDERED: ONDANSETRON 4 MG/2 ML VIAL ONE (09:39)
[2019-01-24] MEDS ORDERED: ACETAMINOPHEN INJECTION 100 ML IVPB ONE (09:39)
[2019-01-24 09:43] LABS: BASO % 0.6 % (0-2.0); HEMATOCRIT 34.4 % (32.4-45.2); HEMOGLOBIN 11.1 GM/dL (10.7-15.3); LYMPH % 6.1 % (8-40); MCH 25.8 pg (25.7-33.7); MCHC 32.2 g/dl (32.0-36.0); MEAN CELL VOLUME 80.2 fl (80-96); MEAN PLT VOLUME 9.6 fl (7.5-11.1); MONO % 9.4 % (3.8-10.2); NEUT % 83.9 % (42.8-82.8); PLATELET COUNT 267 K/MM3 (134-434); RDW 14.8 % (11.6-15.6); WHITE BLOOD COUNT 10.7 K/mm3 (4.0-10.0)
[2019-01-24 10:10] LABS: ALBUMIN 3.5 g/dl (3.4-5.0); ALK PHOS 68 U/L (45-117); ANION GAP 9 MMOL/L (8-16); BILIRUBIN,TOTAL 1.3 mg/dL (0.2-1); BLOOD UREA NITROGEN 14.6 mg/dL (7-18); CHLORIDE 104 mmol/L (98-107); CO2 24 mmol/L (21-32); CREATININE 1.6 mg/dL (0.55-1.3); GLUCOSE,RANDOM 169 mg/dL (74-106); POTASSIUM 3.9 mmol/L (3.5-5.1); SGOT/AST 24 U/L (15-37); SGPT/ALT 36 U/L (13-61); SODIUM 138 mmol/L (136-145); TOT PROT 7.4 g/dl (6.4-8.2)
[2019-01-24 10:53] LABS: INR 2.44 (0.83-1.09)
[2019-01-24 11:36] LABS: EPI CELLS 3.6 /HPF (0-5/HPF); HYALINE CASTS 10 /lpf (0-8); URINE APPEARANCE CLOUDY; URINE BILIRUBIN NEGATIVE (NEGATIVE); URINE COLOR YELLOW; URINE GLUCOSE (UA) NEGATIVE (NEGATIVE); URINE KETONE TRACE (NEGATIVE); URINE LEUK ESTERASE NEGATIVE (NEGATIVE); URINE NITRITE NEGATIVE (NEGATIVE); URINE PROTEIN 1+ (NEGATIVE); URINE WBC 1 /hpf (0-5)
[2019-01-24 11:58] LABS: URINE RBC 3 /hpf (0-4)
[2019-01-24] MEDS ORDERED: AZITHROMYCIN 500 MG TABLET PO ONE (13:33)
[2019-01-24] MEDS ORDERED: CEFTRIAXONE 1,000 MG in DEXTROSE 5%-WATER - 50 ML IVPB ONE (13:33)
--- NOTE | 2019-01-24 14:35 | HP ---
Admitting History and Physical - Primary Care Physician PCP: Hien Sparks S - Admission Chief Complaint: fever chills cough abdominal pain History of Present Illness: 72 YOF with PMH Colon Ca s/p resection 2002, DM, HTN, DVT/PE on coumadin, Nephrolithiasis x3 with obstructed ureterolithiasis s/p stent placement in 2018 who comes into the ED with fever x 3 days, associated with malaise, decreased appetite, nausea, and diffuse abdominal pain. She also endorses lightheadedness , shortness of breath and nonproductive cough, no congestion. No sick contacts or travel. had fever 103 in ER History Source: Patient Limitations to Obtaining History: No Limitations - Past Medical History Cardiovascular: Yes: CHF, Deep Vein Thrombosis, HTN Pulmonary: Yes: COPD Gastrointestinal: Yes: Cancer, Other (ileal adenoma removed 10/17) Renal/: Yes: Renal Inusuff, Renal Calculi Musculoskeletal: Yes: Osteoarthritis Endocrine: Yes: Diabetes Mellitus (NIDDMII) - Past Surgical History Past Surgical History: Yes: Cholecystectomy (EARLY , laparoscopic), Hysterectomy - Smoking History Smoking history: Never smoked Have you smoked in the past 12 months: No If you are a former smoker, when did you quit?: 2001 - Alcohol/Substance Use Hx Alcohol Use: No History of Substance Use: reports: None - Social History Usual Living Arrangement: Yes: Alone ADL: Independent History of Recent Travel: No Home Medications - Allergies Allergies/Adverse Reactions: Allergies Allergy/AdvReac Type Severity Reaction Status Date / Time apple Allergy Verified 01/24/19 07:52 pear Allergy Verified 01/24/19 07:52 simethicone Allergy Verified 01/24/19 07:52 GAS RELIEF TABLET Allergy Severe ANAPHYLAXIS Uncoded 01/24/19 07:52 - Home Medications Home Medications: Ambulatory Orders Amlodipine Besylate [Norvasc -] 5 mg PO DAILY 12/04/14 Enalapril Maleate [Vasotec -] 20 mg PO BID 12/04/14 Lovastatin 40 mg PO HS 12/04/14 Metoprolol Tartrate [Lopressor -] 25 mg PO BID 12/04/14 Warfarin Na [Coumadin -] 5 mg PO ASDIR 12/04/14 Ergocalciferol (Vitamin D2) [Vitamin D2] 2,000 unit PO DAILY 10/27/16 Glipizide 5 mg PO DAILY 10/27/16 Latanoprost 0.005% Eye Drops [Xalatan 0.005% Eye Drops -] 1 drop OP HS 10/27/16 Warfarin Sodium [Coumadin] 6 mg PO SUSA 10/27/16 metFORMIN HCL [Glucophage -] 500 mg PO DAILY 10/27/16 Budesonide/Formeterol Fumarate [SYMBICORT 160/4.5mcg -] 2 puff IH BID inhaler 01/26/18 Ferrous Sulfate 325 mg PO DAILY 02/17/18 Polyethylene Glycol 3350 [Miralax 119 gm Btl -] 17 gm PO PRN PRN 02/17/18 Family Disease History - Family Disease History Family Disease History: Heart Disease: Son ([place] age 52 ()), CA: Father ( Colon cancer dx age 80's ()), Brother (2 brothers with prostate cancer ( )), Sister (Colon cancer dx age 64 ()), Other: Mother (Stroke ( )) Review of Systems - Review of Systems Constitutional: reports: Chills, Diaphoresis, Fever, Loss of Appetite, Malaise, Night Sweats, Weakness (general). denies: Lethargy Eyes: denies: Blind Spots, Blurred Vision, Double Vision HENT: denies: Ear Pain, Epistaxis Neck: denies: Stiffness, Tenderness Cardiovascular: denies: Chest Pain, Palpitations, Shortness of Breath Respiratory: reports: Cough, SOB on Exertion. denies: Hemoptysis, Orthopnea, SOB, Wheezing Gastrointestinal: reports: Abdominal Pain (general). denies: Bloating, Constipation, Diarrhea, Vomiting Genitourinary: denies: Dysuria, Flank Pain Musculoskeletal: denies: Back Pain Integumentary: denies: Bruising, Eczema, Rash, Wound Neurological: denies: Change in LOC, Change in Speech, Confusion, Dizziness Hematology/Lymphatic: denies: Easily Bruised, Excessive Bleeding Psychiatric: denies: Altered Sleep Pattern, Anxiety, Depression, Suicidal Physical Examination Vital Signs: Vital Signs Temperature 98.8 F 01/24/19 13:59 Pulse Rate 92 H 01/24/19 13:59 Respiratory Rate 20 01/24/19 13:59 Blood Pressure 132/79 01/24/19 13:59 O2 Sat by Pulse Oximetry (%) 95 01/24/19 13:59 Constitutional: Yes: Calm Eyes: Yes: Conjunctiva Clear HENT: Yes: Atraumatic Neck: Yes: Supple Cardiovascular: Yes: Regular Rate and Rhythm Respiratory: Yes: Diminished Gastrointestinal: Yes: Soft. No: Tenderness Renal/: No: CVA Tenderness - Left, CVA Tenderness - Right Musculoskeletal: No: Joint Stiffness, Joint Swelling Extremities: No: Cold, Cool, Cyanosis Edema: No Integumentary: No: Rash, Venous Stasis Changes Neurological: Yes: WNL, Alert, Oriented ...Motor Strength: WNL Psychiatric: Yes: WNL, Alert, Oriented. No: Agitated, Suicidal Ideation Labs: CBC, BMP 01/24/19 09:15 01/24/19 09:15 Imaging - Results Chest X-ray: Report Reviewed Cat Scan: Report Reviewed Other: Report Reviewed Assessment/Plan 72 YOF with PMH Colon Ca s/p resection 2001, DM, HTN, DVT/PE on coumadin, Nephrolithiasis x3 with obstructed ureterolithiasis s/p stent placement in 2018 who comes into the ED with fever x 3 days, associated with malaise, decreased appetite, nausea, and diffuse abdominal pain. She also c/o lightheadedness, shortness of breath and nonproductive cough, no congestion. high fever and chills: admit to H; iv ATB iv steroids, O2 check cultures ID and pum eval pt said she also had royal with GI tomorrow, will call for eval here coumadin per INR falls pfx dw pt and staff
[2019-01-24] MEDS ORDERED: POLYETHYLENE GLYCOL 3350 119 GM BTL PO PRN (14:37)
[2019-01-24] MEDS ORDERED: CEFTRIAXONE 1 GM/50 ML BAG ONE (15:11)
[2019-01-24] MEDS ORDERED: AZITHROMYCIN 250 MG TABLET ONE (15:11)
[2019-01-24] MEDS ORDERED: WARFARIN NA 5 MG TABLET (UD) ONE (17:51)
[2019-01-24] MEDS ORDERED: ACETAMINOPHEN 325 MG TABLET (FP) ONE ×2 (17:58)
[2019-01-24] MEDS: WARFARIN NA 5 MG TABLET (UD) PO SCH (18:10)
--- NOTE | 2019-01-24 18:15 | CON.ID ---
Consult Consult Specialty:: infectious disease Referred by:: jarrod Reason for Consultation:: fever - History of Present Illness Chief Complaint: fever for 3 days History of Present Illness: 73 yo female lives alone reports 3 days of fever and diffuse abdominal pain no travel no pets no sick contacts began coughing - dry cough today malaise poor appetite had a ct scan in ED - notable for RLL infiltrate started on rocephin/zithromax - History Source History Provided By: Patient Limitations to Obtaining History: No Limitations - Past Medical History Cardio/Vascular: Yes: CHF, Deep Vein Thrombosis, HTN Pulmonary: Yes: COPD Gastrointestinal: Yes: Cancer, Other (ileal adenoma removed 10/17) Renal/: Yes: Renal Inusuff, Renal Calculi Musculoskeletal: Yes: Osteoarthritis Endocrine: Yes: Diabetes Mellitus (NIDDMII) Additional Medical History: Morbid obesity - Past Surgical History Past Surgical History: Yes: Cholecystectomy (EARLY , laparoscopic), Hysterectomy - Alcohol/Substance Use Hx Alcohol Use: No History of Substance Use: reports: None - Smoking History Smoking history: Never smoked Have you smoked in the past 12 months: No If you are a former smoker, when did you quit?: 2001 - Social History Usual Living Arrangement: Alone ADL: Independent 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 History of Recent Travel: No Home Medications - Allergies Allergies/Adverse Reactions: Allergies Allergy/AdvReac Type Severity Reaction Status Date / Time apple Allergy Verified 01/24/19 07:52 pear Allergy Verified 01/24/19 07:52 simethicone Allergy Verified 01/24/19 07:52 GAS RELIEF TABLET Allergy Severe ANAPHYLAXIS Uncoded 01/24/19 07:52 - Home Medications Home Medications: Ambulatory Orders Amlodipine Besylate [Norvasc -] 5 mg PO DAILY 12/04/14 Enalapril Maleate [Vasotec -] 20 mg PO BID 12/04/14 Lovastatin 40 mg PO HS 12/04/14 Metoprolol Tartrate [Lopressor -] 25 mg PO BID 12/04/14 Warfarin Na [Coumadin -] 5 mg PO ASDIR 12/04/14 Ergocalciferol (Vitamin D2) [Vitamin D2] 2,000 unit PO DAILY 10/27/16 Glipizide 5 mg PO DAILY 10/27/16 Latanoprost 0.005% Eye Drops [Xalatan 0.005% Eye Drops -] 1 drop OP HS 10/27/16 Warfarin Sodium [Coumadin] 6 mg PO SUSA 10/27/16 metFORMIN HCL [Glucophage -] 500 mg PO DAILY 10/27/16 Budesonide/Formeterol Fumarate [SYMBICORT 160/4.5mcg -] 2 puff IH BID inhaler 01/26/18 Ferrous Sulfate 325 mg PO DAILY 02/17/18 Polyethylene Glycol 3350 [Miralax 119 gm Btl -] 17 gm PO PRN PRN 02/17/18 Family Disease History - Family Disease History Family Disease History: Heart Disease: Son ([place] age 52 ()), [place]: Father ( Colon cancer dx age 80's ()), Brother (2 brothers with prostate cancer ( )), Sister (Colon cancer dx age 64 ()), Other: Mother (Stroke ( )) Review of Systems - Review of Systems Constitutional: reports: Chills, Fever, Loss of Appetite, Weakness Eyes: reports: No Symptoms HENT: reports: No Symptoms. denies: Throat Pain, Toothache Neck: reports: No Symptoms. denies: Decreased ROM, Pain on Movement Cardiovascular: reports: No Symptoms Respiratory: reports: Cough Gastrointestinal: reports: Abdominal Pain (now improved) Genitourinary: reports: No Symptoms Integumentary: denies: Rash Physical Exam Vital Signs: Vital Signs Temperature 104.5 F H 01/24/19 17:56 Pulse Rate 145 H 01/24/19 17:56 Respiratory Rate 20 01/24/19 17:56 Blood Pressure 96/63 01/24/19 17:56 O2 Sat by Pulse Oximetry (%) 96 01/24/19 17:56 Constitutional: Yes: Well Nourished, No Distress Eyes: Yes: Conjunctiva Clear HENT: Yes: Atraumatic, Normocephalic. No: Pharyngeal Erythema, Thrush Neck: Yes: Supple Cardiovascular: Yes: Regular Rate and Rhythm Respiratory: Yes: Regular, CTA Bilaterally Gastrointestinal: Yes: Normal Bowel Sounds, Soft. No: Tenderness, Epigastrium ...Rectal Exam: Yes: Deferred Breast(s): Yes: WNL Musculoskeletal: Yes: WNL Extremities: Yes: WNL Neurological: Yes: Alert, Oriented Labs: CBC, BMP 01/24/19 09:15 01/24/19 09:15 UA is negative cultures pending Imaging - Results Cat Scan: Report Reviewed Problem List - Problems (1) Sepsis Code(s): A41.9 - SEPSIS, UNSPECIFIED ORGANISM (2) Pneumonia Code(s): J18.9 - PNEUMONIA, UNSPECIFIED ORGANISM (3) Chronic kidney disease Code(s): N18.9 - CHRONIC KIDNEY DISEASE, UNSPECIFIED Assessment/Plan continue rocephin and zithromax add vancomycin given high grade fever f/u cultures f/u urinary antigen
[2019-01-24] MEDS ORDERED: ACETAMINOPHEN 325 MG TABLET (FP) PO ONE (18:17)
[2019-01-24] MEDS ORDERED: VANCOMYCIN 1 GRAM (PRE-DOCKED) 1,000 MG/250 ML BAG IVPB ONE (19:41)
[2019-01-24] MEDS: ALBUTEROL SO4 0.083% IH SOL 2.5 MG/3 ML VIAL.NEB. NEB PRN (21:30)
[2019-01-24] MEDS ORDERED: ALBUTEROL SO4 0.083% IH SOL 2.5 MG/3 ML VIAL.NEB. NEB ONE (21:31)
[2019-01-24] MEDS ORDERED: ACETAMINOPHEN 325 MG TABLET (FP) PO PRN (22:10)
[2019-01-24] MEDS ORDERED: methylPREDNISolone NA SUCC 40 MG/1 ML VIAL IVPUSH ONE (22:15)
[2019-01-24] MEDS ORDERED: PT OWN MED DRAWER 7, Y5N ONE (22:53)
[2019-01-24] MEDS: METOPROLOL TARTRATE 25 MG TABLET (FP) PO SCH (22:57)
[2019-01-24] MEDS: ATORVASTATIN CA 10 MG TABLET (FP) PO SCH (22:57)
[2019-01-24] MEDS: ENALAPRIL MALEATE 10 MG TABLET (FP) PO SCH (22:58)
[2019-01-24] MEDS: LATANOPROST 0.005% OPHTH SOLN 2.5ML BOTTLE OU SCH (23:41)
[2019-01-24] MEDS: BUDESONIDE/FORMETEROL FUMARATE 160/4.5 mcg INHALER IH SCH (23:41)
[2019-01-25] MEDS: methylPREDNISolone NA SUCC 40 MG/1 ML VIAL IVPUSH SCH ×2 (01:56→10:10)
[2019-01-25] MEDS: metFORMIN HCL 500 MG TABLET (FP) PO SCH (06:20)
[2019-01-25] MEDS: glipiZIDE 5 MG TABLET (FP) PO SCH (06:20)
--- NOTE | 2019-01-25 08:03 | PN ---
Progress Note, Physician Chief Complaint: in bed feels better no chills; has soma abdominal pain; was supposed to see GI dr Durán in office tomorrow; will ask for GI eval here no cough but had some SOB; INR 2.[address] done, iv steroids for COPD exac started; fever 101 last night - Current Medication List Current Medications: Active Medications Acetaminophen (Tylenol -) 650 mg PO Q6H PRN PRN Reason: FEVER Last Admin: 01/25/19 01:56 Dose: 650 mg Albuterol Sulfate (Ventolin 0.083% Nebulizer Soln -) 1 amp NEB Q4H PRN PRN Reason: SHORT OF BREATH/WHEEZING Last Admin: 01/24/19 21:30 Dose: 1 amp Amlodipine Besylate (Norvasc -) 5 mg PO DAILY [facility] Atorvastatin Calcium (Lipitor -) 10 mg PO HS [facility] Last Admin: 01/24/19 22:57 Dose: 10 mg Budesonide/Formoterol Fumarate (Symbicort 160/4.5mcg -) 2 puff IH BID [facility] Last Admin: 01/24/19 23:41 Dose: Not Given Cholecalciferol (Vitamin D3 -) 2,000 unit PO DAILY [facility] Enalapril Maleate (Vasotec -) 20 mg PO BID [facility] Last Admin: 01/24/19 22:58 Dose: 20 mg Ferrous Sulfate (Feosol -) 325 mg PO DAILY [facility] Glipizide (Glucotrol -) 5 mg PO 0700 [facility] Last Admin: 01/25/19 06:20 Dose: 5 mg Azithromycin (Zithromax 500mg Ivpb (Pre-Docked)) 500 mg in 250 mls @ 250 mls/ hr IVPB DAILY [facility] Ceftriaxone Sodium 2 gm/ (Dextrose) 100 mls @ 200 mls/hr IVPB DAILY [facility] Latanoprost (Xalatan 0.005% Eye Drops -) 1 drop OU HS [facility] Last Admin: 01/24/19 23:41 Dose: Not Given Metformin HCl (Glucophage -) 500 mg PO 0700 [facility] Last Admin: 01/25/19 06:20 Dose: 500 mg Methylprednisolone Sodium Succinate (Solu-Medrol -) 40 mg IVPUSH Q8H-IV [facility] Last Admin: 01/25/19 01:56 Dose: 40 mg Metoprolol Tartrate (Lopressor -) 25 mg PO BID [facility] Last Admin: 01/24/19 22:57 Dose: 25 mg Polyethylene Glycol (Miralax (For Daily Use) -) 17 gm PO DAILY PRN PRN Reason: CONSTIPATION Warfarin Sodium (Coumadin -) 5 mg PO MoTuWeThFr@1800 [facility] Last Admin: 01/24/19 18:10 Dose: 5 mg Warfarin Sodium (Coumadin -) 6 mg PO SuSa@1800 [facility] - Objective Vital Signs: Vital Signs Temperature 99.0 F 01/25/19 06:00 Pulse Rate 80 01/25/19 06:00 Respiratory Rate 18 01/25/19 06:00 Blood Pressure 140/78 01/25/19 06:00 O2 Sat by Pulse Oximetry (%) 90 L 01/24/19 20:35 Constitutional: Yes: No Distress, Calm Eyes: Yes: Conjunctiva Clear HENT: Yes: Atraumatic Neck: Yes: Supple Cardiovascular: Yes: Regular Rate and Rhythm Respiratory: Yes: Diminished Gastrointestinal: Yes: Soft. No: Tenderness Musculoskeletal: No: Joint Stiffness, Joint Swelling Extremities: No: Cold, Cool, Cyanosis Edema: No Integumentary: No: Rash, Venous Stasis Changes Neurological: Yes: WNL, Alert, Oriented ...Motor Strength: WNL Psychiatric: Yes: WNL, Alert, Oriented. No: Agitated, Suicidal Ideation Labs: INR, PTT INR 2.44 (0.83-1.09) H 01/24/19 09:15 - ....Imaging Other: Report Reviewed Assessment/Plan 72 YOF with PMH Colon Ca s/p resection 2001, DM, HTN, DVT/PE on coumadin, Nephrolithiasis x3 with obstructed ureterolithiasis s/p stent placement in 2018 admitted with fever, malaise, decreased appetite, nausea, and diffuse abdominal pain. She also c/o lightheadedness, shortness of breath and nonproductive cough , no congestion. high fever and chills: iv ATB per ID; COPD exac, PNA: iv steroids, O2; iv ATB, pulm eval; chest CT abd pain: GI eval coumadin per INR falls pfx dw pt and staff
[2019-01-25 08:36] LABS: BASO % 0.4 % (0-2.0); HEMATOCRIT 33.4 % (32.4-45.2); HEMOGLOBIN 10.8 GM/dL (10.7-15.3); LYMPH % 8.2 % (8-40); MCH 25.8 pg (25.7-33.7); MCHC 32.4 g/dl (32.0-36.0); MEAN CELL VOLUME 79.8 fl (80-96); MEAN PLT VOLUME 9.7 fl (7.5-11.1); MONO % 2.8 % (3.8-10.2); NEUT % 88.6 % (42.8-82.8); RBC 4.19 M/mm3 (3.60-5.2); RDW 15.2 % (11.6-15.6); WHITE BLOOD COUNT 8.2 K/mm3 (4.0-10.0)
[2019-01-25 08:53] LABS: ALBUMIN 2.9 g/dl (3.4-5.0); BILIRUBIN,TOTAL 0.8 mg/dL (0.2-1); BLOOD UREA NITROGEN 13.4 mg/dL (7-18); CALCIUM 8.8 mg/dL (8.5-10.1); CREATININE 1.4 mg/dL (0.55-1.3); INR 2.64 (0.83-1.09); POTASSIUM 4.1 mmol/L (3.5-5.1); PROTHROMBIN TIME (PATIENT) 31.5 SEC (9.7-13.0); TOT PROT 6.7 g/dl (6.4-8.2)
[2019-01-25 09:12] LABS: PLATELET COUNT 265 K/MM3 (134-434)
[2019-01-25] MEDS ORDERED: DEXTROSE 5%-WATER 100 ML IVPB ONE (09:54)
[2019-01-25] MEDS ORDERED: CEFTRIAXONE 1 GM in DEXTROSE 5%-WATER - 50 ML IVPB SCH (10:00)
[2019-01-25] MEDS: CHOLECALCIFEROL (VIT D3) 1,000 UNIT (25 MCG) TABLET PO SCH (10:09)
[2019-01-25] MEDS: amLODIPine BESYLATE 5 MG TABLET (FP) PO SCH (10:09)
[2019-01-25] MEDS: CEFTRIAXONE 2 GM in DEXTROSE 5%-WATER 100 ML IVPB SCH (10:10)
[2019-01-25] MEDS: ENALAPRIL MALEATE 10 MG TABLET (FP) PO SCH ×2 (10:10→21:48)
[2019-01-25] MEDS: FERROUS SO4 325 MG TABLET (FP) PO SCH (10:10)
[2019-01-25] MEDS: METOPROLOL TARTRATE 25 MG TABLET (FP) PO SCH ×2 (10:10→21:47)
--- NOTE | 2019-01-25 10:37 | EKG ---
Test Reason : Blood Pressure : / mmHG Vent. Rate : 111 BPM Atrial Rate : 111 BPM P-R Int : 136 ms QRS Dur : 078 ms QT Int : 318 ms P-R-T Axes : 070 084 074 degrees QTc Int : 432 ms SINUS TACHYCARDIA WITH PREMATURE ATRIAL COMPLEXES NONSPECIFIC T WAVE ABNORMALITY ABNORMAL ECG Confirmed by Cj Madison MD ([id number]) on 01/25/2019 10:36:33 AM Referred By: Confirmed By:Cj Madison MD
[2019-01-25] MEDS: AZITHROMYCIN IVPB 500 MG/250 ML BAG IVPB SCH (10:49)
[2019-01-25] MEDS ORDERED: INSULIN SLIDING SCALE (NOVOLOG) 1 VIAL SQ SCH (11:00)
[2019-01-25] MEDS: BUDESONIDE/FORMETEROL FUMARATE 160/4.5 mcg INHALER IH SCH ×2 (11:01→21:49)
[2019-01-25] MEDS ORDERED: INSULIN (NOVOLOG) ASPART 100 UNITS/ML 10ML VIAL ONE (11:58)
[2019-01-25] MEDS: INSULIN SLIDING SCALE (NOVOLOG) 1 VIAL SQ SCH ×3 (11:58→21:52)
--- NOTE | 2019-01-25 14:42 | CONSULT ---
Consult - text type - Consultation Consultation Note: Renal consult for SIDDHARTH/CKD This is a 73 year old woman with history of CKD 3, Colon Cancer s/p resection 2001, DM, hypertension, hyperlipidemia, DVT/PE, Obesity presents with fever, abdominal pain and cough and found to have Cr of 1.4. Pt reports RUQ abd pain. + Fever at home. No N/V/D. Did not have cough until she came to the hospital, now it is worse. No change in urine output. No dark urine. No flank pain or dysuria. Reprots 18lb weight loss in 3 month period. PMhx: as above Allergies: NKDA Family Hx: NC social Hx: NO T/A/D ROS: as per HPI, all other pertinent ros negative Home Medications Medication Instructions Recorded Amlodipine Besylate [Norvasc -] 5 mg PO DAILY 12/04/14 Enalapril Maleate [Vasotec -] 20 mg PO BID 12/04/14 Lovastatin 40 mg PO HS 12/04/14 Metoprolol Tartrate [Lopressor -] 25 mg PO BID 12/04/14 Warfarin Na [Coumadin -] 5 mg PO ASDIR 12/04/14 Ergocalciferol (Vitamin D2) 2,000 unit PO DAILY 10/27/16 [Vitamin D2] Glipizide 5 mg PO DAILY 10/27/16 Latanoprost 0.005% Eye Drops 1 drop OP HS 10/27/16 [Xalatan 0.005% Eye Drops -] Warfarin Sodium [Coumadin] 6 mg PO SUSA 10/27/16 metFORMIN HCL [Glucophage -] 500 mg PO DAILY 10/27/16 Budesonide/Formeterol Fumarate 2 puff IH BID inhaler 01/26/18 [SYMBICORT 160/4.5mcg -] Ferrous Sulfate 325 mg PO DAILY 02/17/18 Polyethylene Glycol 3350 [Miralax 17 gm PO PRN PRN 02/17/18 119 gm Btl -] Vital Signs Temperature 99.2 F 01/25/19 09:59 Pulse Rate 99 H 01/25/19 09:59 Respiratory Rate 18 01/25/19 09:59 Blood Pressure 143/97 01/25/19 09:59 O2 Sat by Pulse Oximetry (%) 90 L 01/25/19 09:00 Intake & Output 06/01/23/19 01/24/19 01/25/19 23:59 23:59 23:59 23:59 Intake Total 3150 250 Output Total 400 Balance 2750 250 Weight 102.285 kg NAD awake and alert neck supple RRR CTA soft NT/ND, Obese No LE edema no bladder distension CBC, BMP 01/25/19 07:50 01/25/19 07:50 Laboratory Tests 01/25/19 07:50 Calcium 8.8 Albumin 2.9 L Current Medications Acetaminophen (Tylenol -) 650 mg PO Q6H PRN PRN Reason: FEVER Last Admin: 01/25/19 01:56 Dose: 650 mg Albuterol Sulfate (Ventolin 0.083% Nebulizer Soln -) 1 amp NEB Q4H PRN PRN Reason: SHORT OF BREATH/WHEEZING Last Admin: 01/24/19 21:30 Dose: 1 amp Amlodipine Besylate (Norvasc -) 5 mg PO DAILY [facility] Last Admin: 01/25/19 10:09 Dose: 5 mg Atorvastatin Calcium (Lipitor -) 10 mg PO HS [facility] Last Admin: 01/24/19 22:57 Dose: 10 mg Budesonide/Formoterol Fumarate (Symbicort 160/4.5mcg -) 2 puff IH BID [facility] Last Admin: 01/25/19 11:01 Dose: 2 puff Cholecalciferol (Vitamin D3 -) 2,000 unit PO DAILY [facility] Last Admin: 01/25/19 10:09 Dose: 2,000 unit Enalapril Maleate (Vasotec -) 20 mg PO BID [facility] Last Admin: 01/25/19 10:10 Dose: 20 mg Ferrous Sulfate (Feosol -) 325 mg PO DAILY [facility] Last Admin: 01/25/19 10:10 Dose: 325 mg Glipizide (Glucotrol -) 5 mg PO 0700 [facility] Last Admin: 01/25/19 06:20 Dose: 5 mg Azithromycin (Zithromax 500mg Ivpb (Pre-Docked)) 500 mg in 250 mls @ 250 mls/ hr IVPB DAILY [facility] Last Admin: 01/25/19 10:49 Dose: 250 mls/hr Ceftriaxone Sodium 2 gm/ (Dextrose) 100 mls @ 200 mls/hr IVPB DAILY [facility] Last Admin: 01/25/19 10:10 Dose: 200 mls/hr Insulin Aspart (Novolog Vial Sliding Scale -) 1 vial SQ ACHS [facility]; Protocol Last Admin: 01/25/19 11:58 Dose: 10 unit Latanoprost (Xalatan 0.005% Eye Drops -) 1 drop OU HS [facility] Last Admin: 01/24/19 23:41 Dose: Not Given Metformin HCl (Glucophage -) 500 mg PO 0700 [facility] Last Admin: 01/25/19 06:20 Dose: 500 mg Methylprednisolone Sodium Succinate (Solu-Medrol -) 40 mg IVPUSH Q8H-IV [facility] Last Admin: 01/25/19 10:10 Dose: 40 mg Metoprolol Tartrate (Lopressor -) 25 mg PO BID [facility] Last Admin: 01/25/19 10:10 Dose: 25 mg Polyethylene Glycol (Miralax (For Daily Use) -) 17 gm PO DAILY PRN PRN Reason: CONSTIPATION Warfarin Sodium (Coumadin -) 5 mg PO MoTuWeThFr@1800 [facility] Last Admin: 01/24/19 18:10 Dose: 5 mg Warfarin Sodium (Coumadin -) 6 mg PO SuSa@1800 [facility] 73 year old woman with history of CKD 3, Colon Cancer s/p resection 2001, DM, hypertension, hyperlipidemia, DVT/PE, Obesity presents with fever, abdominal pain and cough and found to have Cr of 1.4. #CKD stage 3 #RLL PNA #Unintentional weight loss #Hypertension #DM Renal function stable and at baseline start sesar IVF hydration with hypotonic IVF for now as appetite is decreased continue Abx as per ID f/u offical read of chest CT continue metoprolol, amlodipine and enalarpil Trend renal function and electrolytes daily goal BP ~130/80 can continue metformin for now Thank you Will follow Guillaume El DO
--- NOTE | 2019-01-25 15:10 | CON.PULM ---
Consult Consult Specialty:: PULM/CCM Referred by:: ROSETTE Reason for Consultation:: SOB - History of Present Illness Chief Complaint: SOB History of Present Illness: 72 F, former smoker (quit in 2001), Colon CA S/P Resection 2001, DM, HTN, DVT/ PE on coumadin, nephrolithiasis with stent placement in 2017. Admitted via the ER due to malaise, decreased appetite, nausea, shortness of breath, non-productive cough, and fever x 3 days. No travel history or sick contacts. No hemoptysis or night sweats. 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 CT: RLL consolidation / infiltrates - History Source History Provided By: Patient Limitations to Obtaining History: No Limitations - Past Medical History Cardio/Vascular: Yes: CHF, Deep Vein Thrombosis, HTN Pulmonary: Yes: Bronchitis, COPD, Sleep Apnea. No: Asthma, Cancer, O2 Dependent , Pneumonia, Previously Intubated, Pulmonary Embolus, Pulmonary Fibrosis Gastrointestinal: Yes: Cancer, Other (ileal adenoma removed 10/17) Renal/: Yes: Renal Inusuff, Renal Calculi Musculoskeletal: Yes: Osteoarthritis Endocrine: Yes: Diabetes Mellitus (NIDDMII) Additional Medical History: Morbid obesity - Past Surgical History Past Surgical History: Yes: Cholecystectomy (EARLY , laparoscopic), Hysterectomy - Alcohol/Substance Use Hx Alcohol Use: No History of Substance Use: reports: None - Smoking History Smoking history: Never smoked Have you smoked in the past 12 months: No If you are a former smoker, when did you quit?: 2001 - Social History Usual Living Arrangement: Alone ADL: Independent 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 History of Recent Travel: No Home Medications - Allergies Allergies/Adverse Reactions: Allergies Allergy/AdvReac Type Severity Reaction Status Date / Time apple Allergy Verified 01/24/19 07:52 pear Allergy Verified 01/24/19 07:52 simethicone Allergy Verified 01/24/19 07:52 GAS RELIEF TABLET Allergy Severe ANAPHYLAXIS Uncoded 01/24/19 07:52 - Home Medications Home Medications: Ambulatory Orders Amlodipine Besylate [Norvasc -] 5 mg PO DAILY 12/04/14 Enalapril Maleate [Vasotec -] 20 mg PO BID 12/04/14 Lovastatin 40 mg PO HS 12/04/14 Metoprolol Tartrate [Lopressor -] 25 mg PO BID 12/04/14 Warfarin Na [Coumadin -] 5 mg PO ASDIR 12/04/14 Ergocalciferol (Vitamin D2) [Vitamin D2] 2,000 unit PO DAILY 10/27/16 Glipizide 5 mg PO DAILY 10/27/16 Latanoprost 0.005% Eye Drops [Xalatan 0.005% Eye Drops -] 1 drop OP HS 10/27/16 Warfarin Sodium [Coumadin] 6 mg PO SUSA 10/27/16 metFORMIN HCL [Glucophage -] 500 mg PO DAILY 10/27/16 Budesonide/Formeterol Fumarate [SYMBICORT 160/4.5mcg -] 2 puff IH BID inhaler 01/26/18 Ferrous Sulfate 325 mg PO DAILY 02/17/18 Polyethylene Glycol 3350 [Miralax 119 gm Btl -] 17 gm PO PRN PRN 02/17/18 Family Disease History - Family Disease History Family Disease History: Heart Disease: Son ([place] age 52 ()), CA: Father ( Colon cancer dx age 80's ()), Brother (2 brothers with prostate cancer ( )), Sister (Colon cancer dx age 64 ()), Other: Mother (Stroke ( )) Review of Systems - Review of Systems Constitutional: reports: Chills, Fever, Loss of Appetite, Malaise, Weakness. denies: Night Sweats, Unintentional Wgt. Loss Eyes: reports: No Symptoms HENT: reports: No Symptoms Neck: reports: No Symptoms Cardiovascular: reports: Shortness of Breath. denies: Chest Pain, Edema, Palpitations Respiratory: reports: Cough, Snoring, SOB, SOB on Exertion. denies: Hemoptysis , Orthopnea, Wheezing Gastrointestinal: reports: No Symptoms Genitourinary: reports: No Symptoms Breasts: reports: No Symptoms Reported Musculoskeletal: reports: No Symptoms Integumentary: reports: No Symptoms Neurological: reports: No Symptoms Endocrine: reports: No Symptoms Hematology/Lymphatic: reports: No Symptoms Psychiatric: reports: No Symptoms Physical Exam Vital Sings: Vital Signs Temperature 99.2 F 01/25/19 09:59 Pulse Rate 99 H 01/25/19 09:59 Respiratory Rate 18 01/25/19 09:59 Blood Pressure 143/97 01/25/19 09:59 O2 Sat by Pulse Oximetry (%) 90 L 01/25/19 09:00 Constitutional: Yes: No Distress, Calm, Obese Eyes: Yes: Conjunctiva Clear, EOM Intact HENT: Yes: Atraumatic, Normocephalic Neck: Yes: Supple, Trachea Midline Cardiovascular: Yes: Regular Rate and Rhythm Respiratory: Yes: Cough, Diminished, Rhonchi, SOB on Exertion, Tachypnea. No: Accessory Muscle Use, Rales, SOB, Stridor, Wheezes ...Inspection: Yes: WNL ...Clubbing: No Gastrointestinal: Yes: Normal Bowel Sounds, Soft, Abdomen, Obese Renal/: Yes: WNL Musculoskeletal: Yes: WNL Extremities: Yes: WNL Edema: No Peripheral Pulses WNL: Yes Integumentary: Yes: WNL Neurological: Yes: WNL, Alert, Oriented ...Motor Strength: WNL Psychiatric: Yes: WNL, Alert, Oriented Labs: CBC, BMP 01/25/19 07:50 01/25/19 07:50 Imaging - Results Chest X-ray: Report Reviewed, Image Reviewed Problem List - Problems (1) Former smoker, stopped smoking in distant past Code(s): Z87.891 - PERSONAL HISTORY OF NICOTINE DEPENDENCE (2) Pneumonia Code(s): J18.9 - PNEUMONIA, UNSPECIFIED ORGANISM (3) Anemia Code(s): D64.9 - ANEMIA, UNSPECIFIED Qualifiers: Iron deficiency anemia type: chronic blood loss (4) Chronic kidney disease Code(s): N18.9 - CHRONIC KIDNEY DISEASE, UNSPECIFIED (5) Diastolic dysfunction without heart failure Code(s): I51.89 - OTHER ILL-DEFINED HEART DISEASES (6) History of DVT of lower extremity Code(s): Z86.718 - PERSONAL HISTORY OF OTHER VENOUS THROMBOSIS AND EMBOLISM (7) History of pulmonary embolism Code(s): Z86.711 - PERSONAL HISTORY OF PULMONARY EMBOLISM (8) Hyperlipidemia associated with type 2 diabetes mellitus Code(s): E11.69 - TYPE 2 DIABETES MELLITUS WITH OTHER SPECIFIED COMPLICATION; E78.5 - HYPERLIPIDEMIA, UNSPECIFIED (9) Hypertension Code(s): I10 - ESSENTIAL (PRIMARY) HYPERTENSION Qualifiers: Hypertension type: essential hypertension Qualified Code(s): I10 - Essential (primary) hypertension Assessment/Plan ABX per ID: Vivian/Adrianthromax. Noted Vanco added by ID Check sputum Check Urine assay O2 as needed BD TX PRN Continue AC No smoking Daily Medrol for CAP Will require sleep apnea testing after discharge Will follow Thank you. Dr Das
[2019-01-25] MEDS ORDERED: SODIUM CHLORIDE 0.45% 1,000 ML IV SCH (15:15)
--- NOTE | 2019-01-25 15:26 | PN ---
Progress Note (short form) - Note Progress Note: doing much better today still with cough no high grade fevers today +weight loss over 20 pounds over last 3 months Vital Signs Period Temp Pulse Resp BP Sys/Funez Pulse Ox Last 24 Hr 99.0 F-104.5 F 80-145 18-20 96-143/59-97 90-96 cor-rrr lungs decreased bs at bases abd soft,nt ext no edema CBC, BMP 01/25/19 07:50 01/25/19 07:50 Microbiology 01/25/19 04:00 Urine For Antigen Detection Legionella Antigen - Final 01/25/19 04:00 Urine For Antigen Detection Streptococcus pneumoniae Antigen (M - Final 01/24/19 09:15 Blood - Peripheral Venous Blood Culture - Preliminary NO GROWTH OBTAINED AFTER 24 HOURS, INCUBATION TO CONTINUE FOR 4 DAYS. 01/24/19 09:00 Blood - Peripheral Venous Blood Culture - Preliminary NO GROWTH OBTAINED AFTER 24 HOURS, INCUBATION TO CONTINUE FOR 4 DAYS. 01/24/19 11:25 Urine - Urine Clean Catch Urine Culture - Final Contaminated: Please Repeat a/p RLL pneumonia contiue rocephin/zithromax clinically improving belinda/ckd- improved Problem List - Problems (1) Sepsis Code(s): A41.9 - SEPSIS, UNSPECIFIED ORGANISM (2) Pneumonia Code(s): J18.9 - PNEUMONIA, UNSPECIFIED ORGANISM (3) Chronic kidney disease Code(s): N18.9 - CHRONIC KIDNEY DISEASE, UNSPECIFIED
--- NOTE | 2019-01-25 16:57 | CON.CARD ---
Consult Consult Specialty:: Cardiology Referred by:: Dr. Sparks Reason for Consultation:: Cardiac evaluation - History of Present Illness Chief Complaint: Shortness of breath History of Present Illness: Patient is a 73 year old female with underlying history of Colon CA s/p resection (2001), DM, HTN, hypercholesterolemia, nephrolithiasis s/p stent placement and DVT/PE s/p IVC filter placement who presents with fever. She is being treated with antibiotics for presumed pneumonia. She denies chest pain, SOB or palpitations. She denies paroxysmal nocturnal dyspnea or orthopnea. She denies nausea, vomiting, diarrhea or abdominal pain. She denies headache or lightheadedness. She complains of non-productive cough. 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: Alzheimer's Cardio/Vascular: Yes: CHF, Deep Vein Thrombosis, HTN Pulmonary: Yes: Bronchitis, COPD, Sleep Apnea Gastrointestinal: Yes: Cancer, Other (ileal adenoma removed 10/17) Renal/: Yes: Renal Inusuff, Renal Calculi Musculoskeletal: Yes: Osteoarthritis Endocrine: Yes: Diabetes Mellitus (NIDDMII) Additional Medical History: Morbid obesity - Past Surgical History Past Surgical History: Yes: Cholecystectomy (EARLY , laparoscopic), Hysterectomy - Alcohol/Substance Use Hx Alcohol Use: No History of Substance Use: reports: None - Smoking History Smoking history: Never smoked Have you smoked in the past 12 months: No If you are a former smoker, when did you quit?: 2001 - Social History Usual Living Arrangement: Alone ADL: Independent 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 History of Recent Travel: No Home Medications - Allergies Allergies/Adverse Reactions: Allergies Allergy/AdvReac Type Severity Reaction Status Date / Time apple Allergy Verified 01/24/19 07:52 pear Allergy Verified 01/24/19 07:52 simethicone Allergy Verified 01/24/19 07:52 GAS RELIEF TABLET Allergy Severe ANAPHYLAXIS Uncoded 01/24/19 07:52 - Home Medications Home Medications: Ambulatory Orders Amlodipine Besylate [Norvasc -] 5 mg PO DAILY 12/04/14 Enalapril Maleate [Vasotec -] 20 mg PO BID 12/04/14 Lovastatin 40 mg PO HS 12/04/14 Metoprolol Tartrate [Lopressor -] 25 mg PO BID 12/04/14 Warfarin Na [Coumadin -] 5 mg PO ASDIR 12/04/14 Ergocalciferol (Vitamin D2) [Vitamin D2] 2,000 unit PO DAILY 10/27/16 Glipizide 5 mg PO DAILY 10/27/16 Latanoprost 0.005% Eye Drops [Xalatan 0.005% Eye Drops -] 1 drop OP HS 10/27/16 Warfarin Sodium [Coumadin] 6 mg PO SUSA 10/27/16 metFORMIN HCL [Glucophage -] 500 mg PO DAILY 10/27/16 Budesonide/Formeterol Fumarate [SYMBICORT 160/4.5mcg -] 2 puff IH BID inhaler 01/26/18 Ferrous Sulfate 325 mg PO DAILY 02/17/18 Polyethylene Glycol 3350 [Miralax 119 gm Btl -] 17 gm PO PRN PRN 02/17/18 Family Disease History - Family Disease History Family Disease History: Heart Disease: Son ([place] age 52 ()), CA: Father ( Colon cancer dx age 80's ()), Brother (2 brothers with prostate cancer ( )), Sister (Colon cancer dx age 64 ()), Other: Mother (Stroke ( )) Review of Systems - Review of Systems Constitutional: reports: Fever. denies: Chills Cardiovascular: reports: Shortness of Breath. denies: Chest Pain, Palpitations Respiratory: reports: Cough, SOB. denies: Hemoptysis, Orthopnea, PND, Wheezing Gastrointestinal: denies: Abdominal Pain, Constipation, Diarrhea, Melena, Nausea , Rectal Bleeding, Vomiting Genitourinary: denies: Dysuria, Hematuria Musculoskeletal: denies: Back Pain, Joint Pain Neurological: denies: Dizziness, Headache, Seizure, Syncope Vital Signs: Vital Signs Temperature 98.1 F 01/25/19 15:44 Pulse Rate 85 01/25/19 15:44 Respiratory Rate 18 01/25/19 15:44 Blood Pressure 120/68 01/25/19 15:44 O2 Sat by Pulse Oximetry (%) 90 L 01/25/19 09:00 Eyes: Yes: PERRL HENT: Yes: Atraumatic Neck: Yes: Supple Respiratory: Yes: Diminished Gastrointestinal: Yes: Normal Bowel Sounds, Soft, Abdomen, Obese. No: Tenderness Cardiovascular: Yes: Regular Rate and Rhythm JVD: No PMI: Non-Displaced Heart Sounds: Yes: S1, S2. No: Gallop Edema: No - Other Data Labs, Other Data: CBC, BMP 01/25/19 07:50 01/25/19 07:50 INR, PTT INR 2.64 (0.83-1.09) H 01/25/19 07:50 Laboratory Results - last 24 hr 01/24/19 01/25/19 01/25/19 21:23 07:50 07:50 WBC 8.2 RBC 4.19 Hgb 10.8 Hct 33.4 MCV 79.8 L MCH 25.8 MCHC 32.4 RDW 15.2 Plt Count 265 MPV 9.7 Absolute Neuts (auto) 7.3 Neutrophils % 88.6 H Lymphocytes % 8.2 D Monocytes % 2.8 L Eosinophils % 0.0 Basophils % 0.4 Nucleated RBC % 0 PT with INR 31.50 H INR 2.64 H Sodium Potassium Chloride Carbon Dioxide Anion Gap BUN Creatinine Est GFR (CKD-EPI)AfAm Est GFR (CKD-EPI)NonAf POC Glucometer Random Glucose Calcium Total Bilirubin AST ALT Alkaline Phosphatase Total Protein Albumin Random Vancomycin Influenza A (Rapid) Negative Influenza B (Rapid) Negative 01/25/19 01/25/19 01/25/19 07:50 11:30 11:55 WBC RBC Hgb Hct MCV MCH MCHC RDW Plt Count MPV Absolute Neuts (auto) Neutrophils % Lymphocytes % Monocytes % Eosinophils % Basophils % Nucleated RBC % PT with INR INR Sodium 139 Potassium 4.1 Chloride 106 Carbon Dioxide 25 Anion Gap 8 BUN 13.4 Creatinine 1.4 H Est GFR (CKD-EPI)AfAm 42.79 Est GFR (CKD-EPI)NonAf 36.92 POC Glucometer 356 Random Glucose 252 H Calcium 8.8 Total Bilirubin 0.8 AST 43 H ALT 44 Alkaline Phosphatase 65 Total Protein 6.7 Albumin 2.9 L Random Vancomycin 8.4 L Influenza A (Rapid) Influenza B (Rapid) Sinus rhythm nonspecific T abnormality Imaging - Results Chest X-ray: Report Reviewed Cat Scan: Report Reviewed (Chest CT right lower lobe infiltrate) EKG: Report Reviewed Problem List - Problems (1) Pneumonia Code(s): J18.9 - PNEUMONIA, UNSPECIFIED ORGANISM (2) Sepsis Code(s): A41.9 - SEPSIS, UNSPECIFIED ORGANISM (3) Anemia Code(s): D64.9 - ANEMIA, UNSPECIFIED Qualifiers: Iron deficiency anemia type: chronic blood loss (4) Chronic kidney disease Code(s): N18.9 - CHRONIC KIDNEY DISEASE, UNSPECIFIED (5) Diastolic dysfunction without heart failure Code(s): I51.89 - OTHER ILL-DEFINED HEART DISEASES (6) History of DVT of lower extremity Code(s): Z86.718 - PERSONAL HISTORY OF OTHER VENOUS THROMBOSIS AND EMBOLISM (7) History of pulmonary embolism Code(s): Z86.711 - PERSONAL HISTORY OF PULMONARY EMBOLISM (8) Hyperlipidemia associated with type 2 diabetes mellitus Code(s): E11.69 - TYPE 2 DIABETES MELLITUS WITH OTHER SPECIFIED COMPLICATION; E78.5 - HYPERLIPIDEMIA, UNSPECIFIED (9) Hypertension Code(s): I10 - ESSENTIAL (PRIMARY) HYPERTENSION Qualifiers: Hypertension type: essential hypertension Qualified Code(s): I10 - Essential (primary) hypertension Assessment/Plan 1. Clinical presentation c/w pneumonia 2. History of DVT/PTE s/p IVC filter and on chronic anticoagulation 3. HTN 4. DM 5. Hypercholesterolemia 6. History of colon CA s/p resection 7. History of nephrolithiasis PLAN: 1. Continue current medical therapy 2. Empiric antibiotics coverage 3. Echocardiography to assess LV/RV and valvular function 4. Continue Warfarin with INR monitoring Further plans are to follow Leonel Sabillon MD
[2019-01-25] MEDS: WARFARIN NA 5 MG TABLET (UD) PO SCH (17:44)
[2019-01-25] MEDS: ALBUTEROL SO4 0.083% IH SOL 2.5 MG/3 ML VIAL.NEB. NEB PRN (21:35)
[2019-01-25] MEDS ORDERED: PT OWN MED DRAWER 7, Y5N ONE (21:41)
[2019-01-25] MEDS: ATORVASTATIN CA 10 MG TABLET (FP) PO SCH (21:47)
[2019-01-25] MEDS: LATANOPROST 0.005% OPHTH SOLN 2.5ML BOTTLE OU SCH (21:49)
--- NOTE | 2019-01-25 22:42 | CON.GI ---
Consult Consult Specialty:: Gastroenterology Referred by:: Dr Sparks Reason for Consultation:: RUQ pain - History of Present Illness Chief Complaint: Dull RUQ ache of several weeks duration History of Present Illness: 73F is admitted with fever of 103 and found to have RLL pneumonia. For the past month she had a dull right subcostal ache that arose after she underwent stenting for a right ureteral stone. It persisted after the stent was removed. She also reports weight loss during this period from 240 to 225 lbs despite a good appetite. She denies N/V, early satiety or dysphagia. A 10/22/18 sonogram reveals a fatty liver and normal ducts. Her LFTs are unremarkable. She denies any known h/o liver disease. She did drink alcohol regularly on weekends until 1999 when she quit. She underwent a right hemicolectomy with Dr Kincaid in 2001 for adenocarcinoma which did not require chemotherapy. She believes that Dr Perez discovered her cancer. During colonoscopy with Dr Strange on 10/29/16 she had a tubular adenoma removed from her neoterminal ileum by Dr Strange. No polyps were found when I did her last colonoscopy on 01/22/18 for hemorrhoidal bleeding. I banded her hemorrhoids and she has been free of overt GI bleeding since then. An EGD on that date revealed only a small sliding hiatal hernia . 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: Alzheimer's Cardio/Vascular: Yes: CHF, Deep Vein Thrombosis, HTN, Hyperlipdemia Pulmonary: Yes: Bronchitis, COPD, Pulmonary Embolus (2001 that required median sternotomy approach embolectomy at [facility], has IVC), Sleep Apnea Gastrointestinal: Yes: Cancer (right hemicolectomy for adenocarcinoma in 2001, no adjuvant therapy), Diverticulosis, GI Bleed (hemorhoidal bleeding banded 01/18 ), Hiatal Hernia (small), Other (ileal adenoma removed 10/17) Hepatobiliary: Yes: Cholelithiasis (s/p lap choly), Other (fatty liver ( remote h/o Etoh)) Renal/: Yes: Renal Inusuff, Renal Calculi Musculoskeletal: Yes: Osteoarthritis Endocrine: Yes: Diabetes Mellitus (NIDDMII) Additional Medical History: Morbid obesity. Glaucoma - Past Surgical History Past Surgical History: Yes: Appendectomy (with TAHBSO), Cholecystectomy (EARLY , laparoscopic), Colonoscopy, Hysterectomy (TAHBSO and appendectomy for fibroids), Thoracotomy (for embolectomy after PE in 2001 ( prior to colon cancer discovery)), Tonsillectomy, Upper Endoscopy Additional Surgical History: IVC filter - Alcohol/Substance Use Hx Alcohol Use: Yes (drank vodka regularly until 1999) History of Substance Use: reports: None - Smoking History Smoking history: Former smoker Have you smoked in the past 12 months: No If you are a former smoker, when did you quit?: 2001 - Social History Usual Living Arrangement: Alone ADL: Independent Occupation: retired- worked for [employer] Place of : [facility] History of Recent Travel: No Home Medications - Allergies Allergies/Adverse Reactions: Allergies Allergy/AdvReac Type Severity Reaction Status Date / Time apple Allergy Verified 01/24/19 07:52 pear Allergy Verified 01/24/19 07:52 simethicone Allergy Verified 01/24/19 07:52 GAS RELIEF TABLET Allergy Severe ANAPHYLAXIS Uncoded 01/24/19 07:52 - Home Medications Home Medications: Ambulatory Orders Amlodipine Besylate [Norvasc -] 5 mg PO DAILY 12/04/14 Enalapril Maleate [Vasotec -] 20 mg PO BID 12/04/14 Lovastatin 40 mg PO HS 12/04/14 Metoprolol Tartrate [Lopressor -] 25 mg PO BID 12/04/14 Warfarin Na [Coumadin -] 5 mg PO ASDIR 12/04/14 Ergocalciferol (Vitamin D2) [Vitamin D2] 2,000 unit PO DAILY 10/27/16 Glipizide 5 mg PO DAILY 10/27/16 Latanoprost 0.005% Eye Drops [Xalatan 0.005% Eye Drops -] 1 drop OP HS 10/27/16 Warfarin Sodium [Coumadin] 6 mg PO SUSA 10/27/16 metFORMIN HCL [Glucophage -] 500 mg PO DAILY 10/27/16 Budesonide/Formeterol Fumarate [SYMBICORT 160/4.5mcg -] 2 puff IH BID inhaler 01/26/18 Ferrous Sulfate 325 mg PO DAILY 02/17/18 Polyethylene Glycol 3350 [Miralax 119 gm Btl -] 17 gm PO PRN PRN 02/17/18 Family Disease History - Family Disease History Family Disease History: Heart Disease: Son ([place] age 52 ()), CA: Father ( Colon cancer dx age 80's ()), Brother (2 brothers with prostate cancer ( )), Sister (Colon cancer dx age 64 ()), Other: Mother (Stroke ( )) Review of Systems - Review of Systems Constitutional: reports: Unintentional Wgt. Loss Eyes: reports: No Symptoms HENT: reports: No Symptoms Neck: reports: No Symptoms Cardiovascular: reports: Shortness of Breath Respiratory: reports: SOB on Exertion Gastrointestinal: reports: Abdominal Pain (RUQ), Constipation Musculoskeletal: reports: Back Pain, Joint Pain Physical Exam-GI Vital Signs: Vital Signs Temperature 98.3 F 01/25/19 21:58 Pulse Rate 97 H 01/25/19 21:58 Respiratory Rate 20 01/25/19 21:58 Blood Pressure 124/65 01/25/19 21:58 O2 Sat by Pulse Oximetry (%) 90 L 01/25/19 09:00 CBC,CMP WBC 8.2 K/mm3 (4.0-10.0) 01/25/19 07:50 RBC 4.19 M/mm3 (3.60-5.2) 01/25/19 07:50 Hgb 10.8 GM/dL (10.7-15.3) 01/25/19 07:50 Hct 33.4 % (32.4-45.2) 01/25/19 07:50 MCV 79.8 fl (80-96) L 01/25/19 07:50 MCH 25.8 pg (25.7-33.7) 01/25/19 07:50 MCHC 32.4 g/dl (32.0-36.0) 01/25/19 07:50 RDW 15.2 % (11.6-15.6) 01/25/19 07:50 Plt Count 265 K/MM3 (134-434) 01/25/19 07:50 MPV 9.7 fl (7.5-11.1) 01/25/19 07:50 Absolute Neuts (auto) 7.3 K/mm3 (1.5-8.0) 01/25/19 07:50 Neutrophils % 88.6 % (42.8-82.8) H 01/25/19 07:50 Lymphocytes % 8.2 % (8-40) D 01/25/19 07:50 Monocytes % 2.8 % (3.8-10.2) L 01/25/19 07:50 Eosinophils % 0.0 % (0-4.5) 01/25/19 07:50 Basophils % 0.4 % (0-2.0) 01/25/19 07:50 Nucleated RBC % 0 % (0-0) 01/25/19 07:50 Sodium 139 mmol/L (136-145) 01/25/19 07:50 Potassium 4.1 mmol/L (3.5-5.1) 01/25/19 07:50 Chloride 106 mmol/L (98-107) 01/25/19 07:50 Carbon Dioxide 25 mmol/L (21-32) 01/25/19 07:50 Anion Gap 8 MMOL/L (8-16) 01/25/19 07:50 BUN 13.4 mg/dL (7-18) 01/25/19 07:50 Creatinine 1.4 mg/dL (0.55-1.3) H 01/25/19 07:50 Est GFR (CKD-EPI)AfAm 42.79 01/25/19 07:50 Est GFR (CKD-EPI)NonAf 36.92 01/25/19 07:50 POC Glucometer 335 UNITS (80-120) 01/25/19 21:51 Random Glucose 252 mg/dL (74-106) H 01/25/19 07:50 Lactic Acid 2.1 mmol/L (0.4-2.0) H 01/24/19 13:04 Calcium 8.8 mg/dL (8.5-10.1) 01/25/19 07:50 Total Bilirubin 0.8 mg/dL (0.2-1) 01/25/19 07:50 AST 43 U/L (15-37) H 01/25/19 07:50 ALT 44 U/L (13-61) 01/25/19 07:50 Alkaline Phosphatase 65 U/L (45-117) 01/25/19 07:50 Troponin I < 0.02 ng/ml (0.00-0.05) 01/24/19 09:15 Total Protein 6.7 g/dl (6.4-8.2) 01/25/19 07:50 Albumin 2.9 g/dl (3.4-5.0) L 01/25/19 07:50 Lipase 70 U/L (73-393) L 01/24/19 13:04 Current Medications Generic Name Dose Route Start Last Admin Trade Name Freq PRN Reason Stop Dose Admin Acetaminophen 650 mg 01/24/19 22:10 01/25/19 01:56 Tylenol - PO 650 mg Q6H PRN Administration FEVER Albuterol Sulfate 1 amp 01/24/19 22:10 01/25/19 21:35 Ventolin 0.083% Nebulizer Soln - NEB 1 amp Q4H PRN Administration SHORT OF BREATH/WHEEZING Amlodipine Besylate 5 mg 01/25/19 10:00 01/25/19 10:09 Norvasc - PO 5 mg DAILY [facility] Administration Atorvastatin Calcium 10 mg 01/24/19 22:00 01/25/19 21:47 Lipitor - PO 10 mg HS [facility] Administration Budesonide/Formoterol Fumarate 2 puff 01/24/19 22:00 01/25/19 21:49 Symbicort 160/4.5mcg - IH 2 puff BID [facility] Administration Cholecalciferol 2,000 unit 01/25/19 10:00 01/25/19 10:09 Vitamin D3 - PO 2,000 unit DAILY [facility] Administration Enalapril Maleate 20 mg 01/24/19 22:00 01/25/19 21:48 Vasotec - PO 20 mg BID [facility] Administration Ferrous Sulfate 325 mg 01/25/19 10:00 01/25/19 10:10 Feosol - PO 325 mg DAILY [facility] Administration Glipizide 5 mg 01/25/19 07:00 01/25/19 06:20 Glucotrol - PO 5 mg 0700 [facility] Administration Azithromycin 500 mg in 250 mls @ 250 mls/hr 01/25/19 10:00 01/25/19 10:49 Zithromax 500mg Ivpb (Pre-Docked) IVPB 250 mls/hr DAILY [facility] Administration Ceftriaxone Sodium 2 gm/ 100 mls @ 200 mls/hr 01/25/19 10:00 01/25/19 10:10 Dextrose IVPB 200 mls/hr DAILY [facility] Administration Sodium Chloride 1,000 mls @ 75 mls/hr 01/25/19 15:15 01/25/19 15:12 1/2 Normal Saline IV 01/26/19 08:00 75 mls/hr ASDIR [facility] Administration Insulin Aspart 1 vial 01/25/19 11:00 01/25/19 21:52 Novolog Vial Sliding Scale - SQ 8 unit ACHS [facility] Administration Protocol Latanoprost 1 drop 01/24/19 22:00 01/25/19 21:49 Xalatan 0.005% Eye Drops - OU 1 drop HS [facility] Administration Metformin HCl 500 mg 01/25/19 07:00 01/25/19 06:20 Glucophage - PO 500 mg 0700 [facility] Administration Methylprednisolone Sodium Succinate 60 mg 01/26/19 10:00 Solu-Medrol - IVPUSH DAILY [facility] Metoprolol Tartrate 25 mg 01/24/19 22:00 01/25/19 21:47 Lopressor - PO 25 mg BID [facility] Administration Polyethylene Glycol 17 gm 01/24/19 14:37 Miralax (For Daily Use) - PO DAILY PRN CONSTIPATION Warfarin Sodium 5 mg 01/24/19 18:00 01/25/19 17:44 Coumadin - PO 5 mg MoTuWeThFr@1800 [facility] Administration Warfarin Sodium 6 mg 01/29/19 18:00 Coumadin - PO SuSa@1800 [facility] Constitutional: Yes: No Distress, Other (morbidly obese) Eyes: Yes: Conjunctiva Clear HENT: Yes: Atraumatic Neck: Yes: Trachea Midline Cardiovascular: Yes: Regular Rate and Rhythm, Other (healed low median sternotomy incision) Respiratory: Yes: CTA Bilaterally Gastrointestinal Inspection: Yes: Scars (vertical micline midsternal to epigastric incision, Pfannensteil and laparoscopic incisions), Other (obese) ...Auscultate: Yes: Normoactive Bowel Sounds ...Palpate: Yes: Soft, Other (nontender) ...Rectal Exam: Yes: Guaiac Positive (no masses, dark brown strongly guaiac positive stool ( just had BM)) Neurological: Yes: Alert, Oriented Labs: CBC, BMP 01/25/19 07:50 01/25/19 07:50 INR, PTT INR 2.64 (0.83-1.09) H 01/25/19 07:50 Imaging - Results Cat Scan: Report Reviewed ( Final Report CT ABDOMEN & PELVIS CT W/O CONTR Show Printer-Friendly Version Patient Name: Poly Tubbs DOB: ID: [id number] Study Date: 24-Jan-2019 12:10 Romi Caderaqueljohnson Name: POLY TUBBS DEPARTMENT OF RADIOLOGY Phys: Haydee Gomez MD : 1945 Age: 73 Sex: F [facility] Acct: [id number] Loc: [address] Exam Date: 01/24/19 Status: DAR[place]US [place] [address] Unit Number: [id number] EXAM#: TYPE/EXAM: RESULT: [id number] CT/ABDOMEN PELVIS CT W/O CONTR Clinical history: 73-year-old woman with nausea and diarrhea with history of colon resection. Rule out obstruction or colitis. Comparison: CT abdomen and pelvis 01/31/2018. CT chest 10/22/2018. Contiguous transaxial images were obtained from the diaphragmatic domes and pubic symphysis after the administration of oral and without IV contrast. Sagittal and coronal reconstructions were performed. Lung bases: Interval development of right lower lobe infiltrate. Bone: Osteopenia and degenerative changes. Occasional bone islands. Liver: Negative. Gallbladder: Post cholecystectomy. Biliary tree: Negative. Spleen: Negative. Pancreas : Negative. Adrenals: Hyperplastic left adrenal measuring 2 cm in AP dimension x 2.8 cm in width. Kidneys: Stable isodense mass arising from the upper lateral aspect of the left kidney and measuring 1.5 x 1.3 cm. Right renal vascular calcifications. Dilated right renal pelvis and hydroureter. It can be followed to the UVJ but I do not see a cystic stones. On the right on the prior study there was a right UVJ stone. Pelvis: Multiple right calcified gonadal phleboliths. Status post hysterectomy. Bowel: Mild colonic diverticulosis without CT evidence of diverticulitis. No colitis, obstruction or ascites seen. Contrast is seen within the rectum. Aorta and IVC: There is a filter in the IVC. Other: Small hiatal hernia. Impression: Development of right lower lobe infiltrate. Otherwise no acute pathology seen. Probable residual dilatation of the right kidney secondary to prior right UVJ stone. No evidence of obstruction or colitis. Mild diverticulosis. Other findings as above including hyperplastic left adrenal. Clinical correlation advised. Reported By: Fermin Bajwa MD 01/24/19 1330 HAYDEE GOMEZ Technologist: Harsha Woodruff Transcribed Date/Time: 01/24/19 1330 Product Accountant: Fermin Bajwa Printed Date/Time: By: Signed by: Fermin Bajwa Signed on: 24-Jan-2019 13: 31) Problem List - Problems (1) History of colon cancer in adulthood Assessment/Plan: Surveillance was done 01/22/19 but given her occult bleeding and weight loss a repeat will need to be consider when her pulmonary function permits Code(s): Z85.038 - PERSONAL HISTORY OF MALIGNANT NEOPLASM OF LARGE INTESTINE (2) Abdominal pain in female patient Assessment/Plan: Given the temporal relationship to ureteral stone extraction and stenting I suspect that her pain reflects some residual mucosal trauma. Her pain could alternatively reflect distension of the liver capsule by a fatty liver which is enlarged by CT scan. This could be aggravated by the cor pulmonale component of pneumonia superimposed on previous pulmonary embolism related residua. Given her occult bleeding an ulcer and erosive gastritis cannot be excluded. her pneumonia precludes doing an elective EGD at this time so will treat empirically Code(s): R10.9 - UNSPECIFIED ABDOMINAL PAIN (3) Fatty (change of) liver, not elsewhere classified Assessment/Plan: I have advised a Fibrosure in our office for staging after discharge. I suspect that she has EVANGELISTA superimposed on previous alcoholic fatty liver disease. Code(s): K76.0 - FATTY (CHANGE OF) LIVER, NOT ELSEWHERE CLASSIFIED (4) Weight loss, non-intentional Code(s): R63.4 - ABNORMAL WEIGHT LOSS (5) Occult blood in stools Code(s): R19.5 - OTHER FECAL ABNORMALITIES (6) Tubular adenoma Code(s): D36.9 - BENIGN NEOPLASM, UNSPECIFIED SITE (7) Morbid obesity Code(s): E66.01 - MORBID (SEVERE) OBESITY DUE TO EXCESS CALORIES (8) Glaucoma Code(s): H40.9 - UNSPECIFIED GLAUCOMA (9) Diverticulosis Code(s): K57.90 - DVRTCLOS OF INTEST, PART UNSP, W/O PERF OR ABSCESS W/O BLEED (10) Family history of colon cancer in father Code(s): Z80.0 - FAMILY HISTORY OF MALIGNANT NEOPLASM OF DIGESTIVE ORGANS (11) Pneumonia Code(s): J18.9 - PNEUMONIA, UNSPECIFIED ORGANISM (12) Blood loss anemia Code(s): D50.0 - IRON DEFICIENCY ANEMIA SECONDARY TO BLOOD LOSS (CHRONIC) (13) Chronic kidney disease Code(s): N18.9 - CHRONIC KIDNEY DISEASE, UNSPECIFIED (14) History of DVT of lower extremity Code(s): Z86.718 - PERSONAL HISTORY OF OTHER VENOUS THROMBOSIS AND EMBOLISM (15) History of pulmonary embolism Code(s): Z86.711 - PERSONAL HISTORY OF PULMONARY EMBOLISM (16) Hyperlipidemia associated with type 2 diabetes mellitus Code(s): E11.69 - TYPE 2 DIABETES MELLITUS WITH OTHER SPECIFIED COMPLICATION; E78.5 - HYPERLIPIDEMIA, UNSPECIFIED (17) Hypertension Code(s): I10 - ESSENTIAL (PRIMARY) HYPERTENSION Qualifiers: Hypertension type: essential hypertension Qualified Code(s): I10 - Essential (primary) hypertension Assessment/Plan Impression: - Given the temporal relationship to ureteral stone extraction and stenting I suspect that her pain reflects some residual mucosal trauma. Her pain could alternatively reflect distension of the liver capsule by a fatty liver which is enlarged by CT scan. This could be aggravated by the cor pulmonale component of pneumonia superimposed on previous pulmonary embolism related residua. Given her occult bleeding an ulcer and erosive gastritis cannot be excluded. - I suspect that she has EVANGELISTA superimposed on previous alcoholic fatty liver disease. - Occult bleeding - Personal and strong FH of colon cancer - Weight loss - Constipation - H/O ileal adenoma - H/O hemorrhoidal banding - Diverticulosis Plan: -- The pneumonia precludes doing an elective EGD at this time so will treat empirically -- I have advised a Fibrosure in our office for staging after discharge. I will order the liver studies permitted on inpatients -- Surveillance colonoscopy interval breonna need to be determined after resolution of pneumonia. Will order CEA -- Miralax for constipation
[2019-01-26] MEDS: glipiZIDE 5 MG TABLET (FP) PO SCH (06:51)
[2019-01-26] MEDS: INSULIN SLIDING SCALE (NOVOLOG) 1 VIAL SQ SCH ×4 (06:52→22:46)
[2019-01-26] MEDS: metFORMIN HCL 500 MG TABLET (FP) PO SCH (06:52)
[2019-01-26] MEDS ORDERED: PT OWN MED DRAWER 7, Y5N ONE (07:59)
[2019-01-26 08:21] LABS: HEMOGLOBIN 10.2 GM/dL (10.7-15.3); RBC 3.96 M/mm3 (3.60-5.2); WHITE BLOOD COUNT 9.5 K/mm3 (4.0-10.0)
[2019-01-26 08:22] LABS: BASO % 0.7 % (0-2.0); HEMATOCRIT 31.4 % (32.4-45.2); LYMPH % 7.2 % (8-40); MCH 25.6 pg (25.7-33.7); MCHC 32.3 g/dl (32.0-36.0); MEAN CELL VOLUME 79.3 fl (80-96); MEAN PLT VOLUME 9.7 fl (7.5-11.1); MONO % 6.9 % (3.8-10.2); NEUT % 85.2 % (42.8-82.8); PLATELET COUNT 305 K/MM3 (134-434); RDW 15.4 % (11.6-15.6)
[2019-01-26 08:52] LABS: ALBUMIN 2.9 g/dl (3.4-5.0); BILIRUBIN,TOTAL 0.3 mg/dL (0.2-1); BLOOD UREA NITROGEN 20.3 mg/dL (7-18); CREATININE 1.3 mg/dL (0.55-1.3); MAGNESIUM 2.4 mg/dL (1.8-2.4); POTASSIUM 3.5 mmol/L (3.5-5.1); TOT PROT 6.7 g/dl (6.4-8.2)
[2019-01-26] MEDS: CHOLECALCIFEROL (VIT D3) 1,000 UNIT (25 MCG) TABLET PO SCH (09:00)
[2019-01-26] MEDS ORDERED: DEXTROSE 5%-WATER 100 ML IVPB ONE (09:15)
[2019-01-26] MEDS: AZITHROMYCIN IVPB 500 MG/250 ML BAG IVPB SCH (09:19)
[2019-01-26] MEDS: CEFTRIAXONE 2 GM in DEXTROSE 5%-WATER 100 ML IVPB SCH (09:19)
[2019-01-26] MEDS: FERROUS SO4 325 MG TABLET (FP) PO SCH (09:20)
[2019-01-26] MEDS: PANTOPRAZOLE 40 MG TABLET (FP) PO SCH ×2 (09:20→22:46)
[2019-01-26] MEDS: methylPREDNISolone NA SUCC 40 MG/1 ML VIAL IVPUSH SCH (09:20)
[2019-01-26] MEDS: amLODIPine BESYLATE 5 MG TABLET (FP) PO SCH (09:20)
[2019-01-26] MEDS: METOPROLOL TARTRATE 25 MG TABLET (FP) PO SCH ×2 (09:20→22:46)
[2019-01-26] MEDS: BUDESONIDE/FORMETEROL FUMARATE 160/4.5 mcg INHALER IH SCH ×2 (09:21→22:52)
--- NOTE | 2019-01-26 09:21 | PN ---
Progress Note, Physician Chief Complaint: feels better afebrile - Current Medication List Current Medications: Active Medications Acetaminophen (Tylenol -) 650 mg PO Q6H PRN PRN Reason: FEVER Last Admin: 01/25/19 01:56 Dose: 650 mg Albuterol Sulfate (Ventolin 0.083% Nebulizer Soln -) 1 amp NEB Q4H PRN PRN Reason: SHORT OF BREATH/WHEEZING Last Admin: 01/25/19 21:35 Dose: 1 amp Amlodipine Besylate (Norvasc -) 5 mg PO DAILY [facility] Last Admin: 01/25/19 10:09 Dose: 5 mg Atorvastatin Calcium (Lipitor -) 10 mg PO HS [facility] Last Admin: 01/25/19 21:47 Dose: 10 mg Budesonide/Formoterol Fumarate (Symbicort 160/4.5mcg -) 2 puff IH BID [facility] Last Admin: 01/25/19 21:49 Dose: 2 puff Cholecalciferol (Vitamin D3 -) 2,000 unit PO DAILY [facility] Last Admin: 01/25/19 10:09 Dose: 2,000 unit Enalapril Maleate (Vasotec -) 20 mg PO BID [facility] Last Admin: 01/25/19 21:48 Dose: 20 mg Ferrous Sulfate (Feosol -) 325 mg PO DAILY [facility] Last Admin: 01/25/19 10:10 Dose: 325 mg Glipizide (Glucotrol -) 5 mg PO 0700 [facility] Last Admin: 01/26/19 06:51 Dose: 5 mg Azithromycin (Zithromax 500mg Ivpb (Pre-Docked)) 500 mg in 250 mls @ 250 mls/ hr IVPB DAILY [facility] Last Admin: 01/25/19 10:49 Dose: 250 mls/hr Ceftriaxone Sodium 2 gm/ (Dextrose) 100 mls @ 200 mls/hr IVPB DAILY [facility] Last Admin: 01/25/19 10:10 Dose: 200 mls/hr Insulin Aspart (Novolog Vial Sliding Scale -) 1 vial SQ ACHS [facility]; Protocol Last Admin: 01/26/19 06:52 Dose: 4 unit Latanoprost (Xalatan 0.005% Eye Drops -) 1 drop OU HS [facility] Last Admin: 01/25/19 21:49 Dose: 1 drop Metformin HCl (Glucophage -) 500 mg PO 0700 [facility] Last Admin: 01/26/19 06:52 Dose: 500 mg Methylprednisolone Sodium Succinate (Solu-Medrol -) 60 mg IVPUSH DAILY [facility] Metoprolol Tartrate (Lopressor -) 25 mg PO BID [facility] Last Admin: 01/25/19 21:47 Dose: 25 mg Pantoprazole Sodium (Protonix -) 40 mg PO BID [facility] Polyethylene Glycol (Miralax (For Daily Use) -) 17 gm PO DAILY PRN PRN Reason: CONSTIPATION Warfarin Sodium (Coumadin -) 5 mg PO [email or web address]@1800 [facility] Last Admin: 01/25/19 17:44 Dose: 5 mg Warfarin Sodium (Coumadin -) 6 mg PO SuSa@1800 [facility] - Objective Vital Signs: Vital Signs Temperature 98.9 F 01/26/19 06:00 Pulse Rate 87 01/26/19 06:00 Respiratory Rate 20 01/26/19 06:00 Blood Pressure 139/78 01/26/19 06:00 O2 Sat by Pulse Oximetry (%) 98 01/25/19 21:00 Constitutional: Yes: No Distress, Calm Eyes: Yes: Conjunctiva Clear HENT: Yes: Atraumatic Neck: Yes: Supple Cardiovascular: No: Regular Rate and Rhythm Respiratory: Yes: Diminished Gastrointestinal: Yes: Soft. No: Tenderness Genitourinary: No: CVA Tenderness - Left, CVA Tenderness - Right Musculoskeletal: No: Joint Stiffness, Joint Swelling Extremities: No: Cold, Cool, Cyanosis Edema: No Integumentary: No: Rash, Venous Stasis Changes Neurological: Yes: WNL, Alert, Oriented ...Motor Strength: WNL Psychiatric: Yes: WNL, Alert, Oriented. No: Agitated, Suicidal Ideation Labs: CBC, BMP 01/26/19 07:50 01/26/19 07:50 INR, PTT INR 2.64 (0.83-1.09) H 01/25/19 07:50 - ....Imaging Other: Report Reviewed Assessment/Plan 72 YOF with PMH Colon Ca s/p resection 2001, DM, HTN, DVT/PE on coumadin, Nephrolithiasis x3 with obstructed ureterolithiasis s/p stent placement in 2018 admitted with fever, malaise, decreased appetite, nausea, and diffuse abdominal pain. Found to have PNA iv ATB per ID; COPD exac, PNA: iv steroids, O2; iv ATB, pulm eval; chest CT noted and d/w pt abd pain, mild increased LFts: GI f/u coumadin per INR falls pfx dw pt and staff
[2019-01-26] MEDS ORDERED: AZITHROMYCIN 250 MG TABLET PO ONE (09:47)
--- NOTE | 2019-01-26 10:00 | PN ---
Progress Note (short form) - Note Progress Note: doing much better today no fevers +weight loss over 20 pounds over last 3 months no abdominal pain Vital Signs Period Temp Pulse Resp BP Sys/Funez Pulse Ox Last 24 Hr 98.0 F-99.2 F 85-99 18-20 120-143/65-97 98 cor-rrr lungs clear, decreased bs at bases abd soft,nt ext no edema CBC, BMP 01/26/19 07:50 01/26/19 07:50 Microbiology 01/24/19 09:15 Blood - Peripheral Venous Blood Culture - Preliminary NO GROWTH OBTAINED AFTER 48 HOURS, INCUBATION TO CONTINUE FOR 3 DAYS. 01/24/19 09:00 Blood - Peripheral Venous Blood Culture - Preliminary NO GROWTH OBTAINED AFTER 48 HOURS, INCUBATION TO CONTINUE FOR 3 DAYS. 01/25/19 04:00 Urine For Antigen Detection Legionella Antigen - Final 01/25/19 04:00 Urine For Antigen Detection Streptococcus pneumoniae Antigen (M - Final 01/24/19 11:25 Urine - Urine Clean Catch Urine Culture - Final Contaminated: Please Repeat a/p RLL pneumonia continue rocephin day #3 switch to zithromax po clinically improving hopefully home soon belinda/ckd- improved Problem List - Problems (1) Sepsis Code(s): A41.9 - SEPSIS, UNSPECIFIED ORGANISM (2) Pneumonia Code(s): J18.9 - PNEUMONIA, UNSPECIFIED ORGANISM (3) Chronic kidney disease Code(s): N18.9 - CHRONIC KIDNEY DISEASE, UNSPECIFIED
[2019-01-26] MEDS: ENALAPRIL MALEATE 10 MG TABLET (FP) PO SCH ×2 (10:24→22:46)
[2019-01-26 10:43] LABS: ERYTHROCYTE SEDIMENTATION RATE 89 mm/hr (0-30)
[2019-01-26] MEDS ORDERED: INSULIN (NOVOLOG) ASPART 100 UNITS/ML 10ML VIAL ONE (12:17)
--- NOTE | 2019-01-26 12:22 | PN ---
Progress Note (short form) - Note Progress Note: Renal follow up for CKD Pt seen and examined at the bedside awake and alert feels better has some sob and wheezing last night was on IVF overnight able to tolerate oral diet making urine no flank pain Vital Signs Temperature 98.9 F 01/26/19 06:00 Pulse Rate 87 01/26/19 06:00 Respiratory Rate 20 01/26/19 06:00 Blood Pressure 139/78 01/26/19 06:00 O2 Sat by Pulse Oximetry (%) 98 01/25/19 21:00 Intake & Output 01/23/19 01/24/19 01/25/19 01/26/19 23:59 23:59 23:59 23:59 Intake Total 3150 2280 Output Total 400 Balance 2750 2280 Weight 102.285 kg NAD RRR CTA soft NT/ND, Obese No LE edema no bladder distension CBC, BMP 01/26/19 07:50 01/26/19 07:50 Current Medications Acetaminophen (Tylenol -) 650 mg PO Q6H PRN PRN Reason: FEVER Last Admin: 01/25/19 01:56 Dose: 650 mg Albuterol Sulfate (Ventolin 0.083% Nebulizer Soln -) 1 amp NEB Q4H PRN PRN Reason: SHORT OF BREATH/WHEEZING Last Admin: 01/25/19 21:35 Dose: 1 amp Amlodipine Besylate (Norvasc -) 5 mg PO DAILY [facility] Last Admin: 01/26/19 09:20 Dose: 5 mg Atorvastatin Calcium (Lipitor -) 10 mg PO HS [facility] Last Admin: 01/25/19 21:47 Dose: 10 mg Budesonide/Formoterol Fumarate (Symbicort 160/4.5mcg -) 2 puff IH BID [facility] Last Admin: 01/26/19 09:21 Dose: 2 puff Cholecalciferol (Vitamin D3 -) 2,000 unit PO DAILY [facility] Last Admin: 01/26/19 09:00 Dose: 2,000 unit Enalapril Maleate (Vasotec -) 20 mg PO BID [facility] Last Admin: 01/25/19 21:48 Dose: 20 mg Ferrous Sulfate (Feosol -) 325 mg PO DAILY [facility] Last Admin: 01/26/19 09:20 Dose: 325 mg Glipizide (Glucotrol -) 5 mg PO 0700 [facility] Last Admin: 01/26/19 06:51 Dose: 5 mg Ceftriaxone Sodium 2 gm/ (Dextrose) 100 mls @ 200 mls/hr IVPB DAILY [facility] Last Admin: 01/26/19 09:19 Dose: 200 mls/hr Insulin Aspart (Novolog Vial Sliding Scale -) 1 vial SQ ACHS [facility]; Protocol Last Admin: 01/26/19 06:52 Dose: 4 unit Latanoprost (Xalatan 0.005% Eye Drops -) 1 drop OU HS [facility] Last Admin: 01/25/19 21:49 Dose: 1 drop Metformin HCl (Glucophage -) 500 mg PO 0700 [facility] Last Admin: 01/26/19 06:52 Dose: 500 mg Methylprednisolone Sodium Succinate (Solu-Medrol -) 60 mg IVPUSH DAILY [facility] Last Admin: 01/26/19 09:20 Dose: 60 mg Metoprolol Tartrate (Lopressor -) 25 mg PO BID [facility] Last Admin: 01/26/19 09:20 Dose: 25 mg Pantoprazole Sodium (Protonix -) 40 mg PO BID [facility] Last Admin: 01/26/19 09:20 Dose: 40 mg Polyethylene Glycol (Miralax (For Daily Use) -) 17 gm PO DAILY PRN PRN Reason: CONSTIPATION Potassium Phos/Sodium Phos (Phos-Nak Packet -) 1 packet PO TID [facility] Stop: 01/26/19 22:01 Warfarin Sodium (Coumadin -) 5 mg PO MoTuWeThFr@1800 [facility] Last Admin: 01/25/19 17:44 Dose: 5 mg Warfarin Sodium (Coumadin -) 6 mg PO SuSa@1800 [facility] 73 year old woman with history of CKD 3, Colon Cancer s/p resection 2001, DM, hypertension, hyperlipidemia, DVT/PE, Obesity presents with fever, abdominal pain and cough and found to have Cr of 1.4. #CKD stage 3 #RLL PNA #Unintentional weight loss #Hypertension #DM #Left kidney mass Renal function stable and at baseline continue Abx as per ID check renal US to characterize left kidney hypodense mass seen on CT of Abd Consider urology consult to evalulate mass as well continue metoprolol, amlodipine and enalarpil Trend renal function and electrolytes daily goal BP ~130/80 can continue metformin for now Thank you Will follow Guillaume El DO
[2019-01-26] MEDS: NAPH,MB-DB/K PH,MBDB POWDER PACKET PO SCH ×3 (12:44→22:45)
--- NOTE | 2019-01-26 13:19 | PN ---
Progress Note, Physician History of Present Illness: Dyspnea, cough, wheezes improving. Afebrile. - Current Medication List Current Medications: Active Medications Acetaminophen (Tylenol -) 650 mg PO Q6H PRN PRN Reason: FEVER Last Admin: 01/25/19 01:56 Dose: 650 mg Albuterol Sulfate (Ventolin 0.083% Nebulizer Soln -) 1 amp NEB Q4H PRN PRN Reason: SHORT OF BREATH/WHEEZING Last Admin: 01/25/19 21:35 Dose: 1 amp Amlodipine Besylate (Norvasc -) 5 mg PO DAILY [facility] Last Admin: 01/26/19 09:20 Dose: 5 mg Atorvastatin Calcium (Lipitor -) 10 mg PO HS [facility] Last Admin: 01/25/19 21:47 Dose: 10 mg Budesonide/Formoterol Fumarate (Symbicort 160/4.5mcg -) 2 puff IH BID [facility] Last Admin: 01/26/19 09:21 Dose: 2 puff Cholecalciferol (Vitamin D3 -) 2,000 unit PO DAILY [facility] Last Admin: 01/26/19 09:00 Dose: 2,000 unit Enalapril Maleate (Vasotec -) 20 mg PO BID [facility] Last Admin: 01/26/19 10:24 Dose: 20 mg Ferrous Sulfate (Feosol -) 325 mg PO DAILY [facility] Last Admin: 01/26/19 09:20 Dose: 325 mg Glipizide (Glucotrol -) 5 mg PO 0700 [facility] Last Admin: 01/26/19 06:51 Dose: 5 mg Ceftriaxone Sodium 2 gm/ (Dextrose) 100 mls @ 200 mls/hr IVPB DAILY [facility] Last Admin: 01/26/19 09:19 Dose: 200 mls/hr Insulin Aspart (Novolog Vial Sliding Scale -) 1 vial SQ ACHS [facility]; Protocol Last Admin: 01/26/19 12:24 Dose: 4 unit Latanoprost (Xalatan 0.005% Eye Drops -) 1 drop OU HS [facility] Last Admin: 01/25/19 21:49 Dose: 1 drop Metformin HCl (Glucophage -) 500 mg PO 0700 [facility] Last Admin: 01/26/19 06:52 Dose: 500 mg Methylprednisolone Sodium Succinate (Solu-Medrol -) 60 mg IVPUSH DAILY [facility] Last Admin: 06/26/19 09:20 Dose: 60 mg Metoprolol Tartrate (Lopressor -) 25 mg PO BID [facility] Last Admin: 01/26/19 09:20 Dose: 25 mg Pantoprazole Sodium (Protonix -) 40 mg PO BID [facility] Last Admin: 01/26/19 09:20 Dose: 40 mg Polyethylene Glycol (Miralax (For Daily Use) -) 17 gm PO DAILY PRN PRN Reason: CONSTIPATION Potassium Phos/Sodium Phos (Phos-Nak Packet -) 1 packet PO TID [facility] Stop: 01/26/19 22:01 Last Admin: 01/26/19 12:44 Dose: 1 packet Warfarin Sodium (Coumadin -) 5 mg PO MoTuWeThFr@1800 [facility] Last Admin: 01/25/19 17:44 Dose: 5 mg Warfarin Sodium (Coumadin -) 6 mg PO SuSa@1800 [facility] - Objective Vital Signs: Vital Signs Temperature 98.9 F 01/26/19 06:00 Pulse Rate 87 01/26/19 06:00 Respiratory Rate 20 01/26/19 06:00 Blood Pressure 139/78 01/26/19 06:00 O2 Sat by Pulse Oximetry (%) 98 01/25/19 21:00 Constitutional: Yes: No Distress, Calm Neck: Yes: Supple Cardiovascular: Yes: Regular Rate and Rhythm Respiratory: Yes: Regular, CTA Bilaterally Gastrointestinal: Yes: Normal Bowel Sounds, Soft, Abdomen, Obese Edema: No Labs: CBC, BMP 01/26/19 07:50 01/26/19 07:50 INR, PTT INR 2.64 (0.83-1.09) H 01/25/19 07:50 Problem List - Problems (1) Chronic anticoagulation Code(s): Z79.01 - FDC (CURRENT) USE OF ANTICOAGULANTS (2) Pneumonia Code(s): J18.9 - PNEUMONIA, UNSPECIFIED ORGANISM Qualifiers: Laterality: right Lung location: lower lobe of lung (3) Anemia Code(s): D64.9 - ANEMIA, UNSPECIFIED Qualifiers: Iron deficiency anemia type: chronic blood loss (4) Chronic kidney disease Code(s): N18.9 - CHRONIC KIDNEY DISEASE, UNSPECIFIED Qualifiers: Chronic kidney disease stage: stage 3 (moderate) Qualified Code(s): N18.3 - Chronic kidney disease, stage 3 (moderate) (5) Diastolic dysfunction without heart failure Code(s): I51.89 - OTHER ILL-DEFINED HEART DISEASES (6) History of DVT of lower extremity Code(s): Z86.718 - PERSONAL HISTORY OF OTHER VENOUS THROMBOSIS AND EMBOLISM (7) History of pulmonary embolism Code(s): Z86.711 - PERSONAL HISTORY OF PULMONARY EMBOLISM (8) Hyperlipidemia associated with type 2 diabetes mellitus Code(s): E11.69 - TYPE 2 DIABETES MELLITUS WITH OTHER SPECIFIED COMPLICATION; E78.5 - HYPERLIPIDEMIA, UNSPECIFIED (9) Hypertension Code(s): I10 - ESSENTIAL (PRIMARY) HYPERTENSION Qualifiers: Hypertension type: essential hypertension Qualified Code(s): I10 - Essential (primary) hypertension Assessment/Plan 1. RLL pneumonia improving 2. History of DVT/PTE s/p IVC filter and on chronic anticoagulation with therapeutic INR 3. HTN 4. DM 5. Hypercholesterolemia 6. CKD 3 6. History of colon CA s/p resection 7. Left kidney mass, history of Nephrolithiasis x3 with obstructed ureterolithiasis s/p stent placement in 2018 PLAN: 1. Continue Norvasc 5 qd, Lipitor 10 qhs, Vasotec 20 bid, Lopressor 25 bid 2. Continue rocephin day #3, zithromax oral, BD, IV steroids, O2 as needed to maintain FIO2 3. Echocardiography to assess LV/RV and valvular function 4. Continue Warfarin with INR monitoring and GI protection 5. Check renal US to characterize left kidney hypodense mass seen on CT of Abd
--- NOTE | 2019-01-26 13:37 | ECHO ---
Name: TUBBS, REA Exam:Adult Echocardiogram Study Date: 01/26/2019 07:51 AM Age: 73 yrs Reason For Study: HTN Height: 61 in Weight: 225 lb BSA: 2.0 m2 MMode/2D Measurements & Calculations IVSd: 0.94 cm Ao root diam: 2.6 cm LVIDd: 4.5 cm LA dimension: 3.0 cm LVIDs: 2.3 cm LVPWd: 1.00 cm EDV(Teich): 92.0 ml LVOT diam: 2.0 cm ESV(Teich): 18.9 ml LAV (MOD-bp): 47.3 ml Doppler Measurements & Calculations MV E max ron: 85.9 cm/sec Ao V2 max: 149.0 cm/sec MV A max ron: 106.0 cm/sec Ao max P.9 mmHg MV E/A: 0.81 MV dec time: 0.21 sec JOSSY(V,D): 2.4 cm2 LV V1 max P.1 mmHg MR max ron: 258.0 cm/sec LV V1 max: 113.0 cm/sec MR max P.6 mmHg TR max ron: 252.0 cm/sec PA V2 max: 122.0 cm/sec TR max P.4 mmHg PA max P.0 mmHg Med Peak E' Ron: 5.3 cm/sec PI Vmax: 71.9 cm/sec Med E/e': 16.1 Lat Peak E' Ron: 7.1 cm/sec Lat E/e': 12.1 Procedure A two-dimensional transthoracic echocardiogram with color flow and Doppler was performed. Left Ventricle The left ventricular size, thickness and function are normal. The left ventricular ejection fraction is normal. E/A reversal consistent with but not diagnostic of poor LV compliance. The left ventricular w all motion is normal. Right Ventricle The right ventricle is not well visualized. Atria Normal left and right atrial size and function. Mitral Valve There is mild mitral valve thickening. There is no mitral valve stenosis. There is trace to mild mitr al regurgitation. Tricuspid Valve There is mild tricuspid valve thickening. There is no tricuspid stenosis. There is mild tricuspid regurgitation. Right ventricular systolic pressure is normal. Aortic Valve The aortic valve is not well visualized. No hemodynamically significant valvular aortic stenosis. No aortic regurgitation is present. Pulmonic Valve The pulmonic valve is not well visualized. Great Vessels The aortic root is normal size. Pericardium/Pleura There is no pericardial effusion. Interpretation Summary The left ventricular size, thickness and function are normal The left ventricular ejection fraction is normal. The left ventricular wall motion is normal. There is mild tricuspid regurgitation. Right ventricular systolic pressure is normal. E/A reversal consistent with but not diagnostic of poor LV compliance There is trace to mild mitral regurgitation. MD Brad Braswell 01/26/2019 01:37 PM
--- NOTE | 2019-01-26 14:15 | CON.GU ---
Consult Consult Specialty:: Urology Referred by:: Dr Sparks Reason for Consultation:: Hydronephrosis. renal lesion - History of Present Illness Chief Complaint: 73 yo female w prior hx of right ureteral calculus addressed in 2018 had prior stent. Now some fullness on right side. 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: Yes: Alzheimer's Cardio/Vascular: Yes: CHF, Deep Vein Thrombosis, HTN Pulmonary: Yes: COPD Gastrointestinal: Yes: Cancer, Other (ileal adenoma removed 10/17) Hepatobiliary: Yes: Cholelithiasis (s/p lap choly), Other (fatty liver ( remote h/o Etoh)) Renal/: Yes: Renal Inusuff, Renal Calculi Musculoskeletal: Yes: Osteoarthritis Endocrine: Yes: Diabetes Mellitus (NIDDMII) Additional Medical History: Morbid obesity - Past Surgical History Past Surgical History: Yes: Cholecystectomy (EARLY , laparoscopic), Hysterectomy Additional Surgical History: IVC filter - Alcohol/Substance Use Hx Alcohol Use: No History of Substance Use: reports: None - Smoking History Smoking history: Never smoked Have you smoked in the past 12 months: No If you are a former smoker, when did you quit?: 2001 - Social History Usual Living Arrangement: Alone ADL: Independent 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 History of Recent Travel: No Home Medications - Allergies Allergies/Adverse Reactions: Allergies Allergy/AdvReac Type Severity Reaction Status Date / Time apple Allergy Verified 01/24/19 07:52 pear Allergy Verified 01/24/19 07:52 simethicone Allergy Verified 01/24/19 07:52 GAS RELIEF TABLET Allergy Severe ANAPHYLAXIS Uncoded 01/24/19 07:52 - Home Medications Home Medications: Ambulatory Orders Amlodipine Besylate [Norvasc -] 5 mg PO DAILY 12/04/14 Enalapril Maleate [Vasotec -] 20 mg PO BID 12/04/14 Lovastatin 40 mg PO HS 12/04/14 Metoprolol Tartrate [Lopressor -] 25 mg PO BID 12/04/14 Warfarin Na [Coumadin -] 5 mg PO ASDIR 12/04/14 Ergocalciferol (Vitamin D2) [Vitamin D2] 2,000 unit PO DAILY 10/27/16 Glipizide 5 mg PO DAILY 10/27/16 Latanoprost 0.005% Eye Drops [Xalatan 0.005% Eye Drops -] 1 drop OP HS 10/27/16 Warfarin Sodium [Coumadin] 6 mg PO SUSA 10/27/16 metFORMIN HCL [Glucophage -] 500 mg PO DAILY 10/27/16 Budesonide/Formeterol Fumarate [SYMBICORT 160/4.5mcg -] 2 puff IH BID inhaler 01/26/18 Ferrous Sulfate 325 mg PO DAILY 02/17/18 Polyethylene Glycol 3350 [Miralax 119 gm Btl -] 17 gm PO PRN PRN 02/17/18 Family Disease History - Family Disease History Family Disease History: Heart Disease: Son ([place] age 52 ()), CA: Father ( Colon cancer dx age 80's ()), Brother (2 brothers with prostate cancer ( )), Sister (Colon cancer dx age 64 ()), Other: Mother (Stroke ( )) Physical Exam- Vital Signs: Vital Signs Temperature 98.9 F 01/26/19 06:00 Pulse Rate 87 01/26/19 06:00 Respiratory Rate 20 01/26/19 06:00 Blood Pressure 139/78 01/26/19 06:00 O2 Sat by Pulse Oximetry (%) 98 01/25/19 21:00 Constitutional: Yes: Well Nourished Eyes: Yes: WNL HENT: Yes: WNL Neck: Yes: Supple Cardiovascular: Yes: Regular Rate and Rhythm Respiratory: Yes: WNL Gastrointestinal: Yes: WNL, Soft Renal/: Yes: WNL Pelvis: Yes: WNL Labs: CBC, BMP 01/26/19 07:50 01/26/19 07:50 Imaging - Results Cat Scan: Report Reviewed Problem List - Problems (1) Hydronephrosis due to obstruction of ureteral orifice Assessment/Plan: Right sided residual hydro may not be associated w obstruction Cr 1.4 Renal scan w lasix would be recommended to r/o functional obstruction vs persistant hydro Left renal lesion stable would follow w 6 mos reimaging in light of pts mult medical issues espescially requiring anticoagulation Code(s): N13.2 - HYDRONEPHROSIS WITH RENAL AND URETERAL CALCULOUS OBSTRUCTION (2) Hydronephrosis due to obstruction of ureteral orifice Code(s): N13.2 - HYDRONEPHROSIS WITH RENAL AND URETERAL CALCULOUS OBSTRUCTION
--- NOTE | 2019-01-26 15:12 | PN ---
Progress Note, Physician History of Present Illness: pulmonary alert,feeling better,sob improving,less congestion - Current Medication List Current Medications: Active Medications Acetaminophen (Tylenol -) 650 mg PO Q6H PRN PRN Reason: FEVER Last Admin: 01/25/19 01:56 Dose: 650 mg Albuterol Sulfate (Ventolin 0.083% Nebulizer Soln -) 1 amp NEB Q4H PRN PRN Reason: SHORT OF BREATH/WHEEZING Last Admin: 01/25/19 21:35 Dose: 1 amp Amlodipine Besylate (Norvasc -) 5 mg PO DAILY [facility] Last Admin: 01/26/19 09:20 Dose: 5 mg Atorvastatin Calcium (Lipitor -) 10 mg PO HS [facility] Last Admin: 01/25/19 21:47 Dose: 10 mg Budesonide/Formoterol Fumarate (Symbicort 160/4.5mcg -) 2 puff IH BID [facility] Last Admin: 01/26/19 09:21 Dose: 2 puff Cholecalciferol (Vitamin D3 -) 2,000 unit PO DAILY [facility] Last Admin: 01/26/19 09:00 Dose: 2,000 unit Enalapril Maleate (Vasotec -) 20 mg PO BID [facility] Last Admin: 01/26/19 10:24 Dose: 20 mg Ferrous Sulfate (Feosol -) 325 mg PO DAILY [facility] Last Admin: 01/26/19 09:20 Dose: 325 mg Glipizide (Glucotrol -) 5 mg PO 0700 [facility] Last Admin: 01/26/19 06:51 Dose: 5 mg Ceftriaxone Sodium 2 gm/ (Dextrose) 100 mls @ 200 mls/hr IVPB DAILY [facility] Last Admin: 01/26/19 09:19 Dose: 200 mls/hr Insulin Aspart (Novolog Vial Sliding Scale -) 1 vial SQ ACHS [facility]; Protocol Last Admin: 01/26/19 12:24 Dose: 4 unit Latanoprost (Xalatan 0.005% Eye Drops -) 1 drop OU HS [facility] Last Admin: 01/25/19 21:49 Dose: 1 drop Metformin HCl (Glucophage -) 500 mg PO 0700 [facility] Last Admin: 01/26/19 06:52 Dose: 500 mg Methylprednisolone Sodium Succinate (Solu-Medrol -) 60 mg IVPUSH DAILY [facility] Last Admin: 01/26/19 09:20 Dose: 60 mg Metoprolol Tartrate (Lopressor -) 25 mg PO BID [facility] Last Admin: 01/26/19 09:20 Dose: 25 mg Pantoprazole Sodium (Protonix -) 40 mg PO BID [facility] Last Admin: 01/26/19 09:20 Dose: 40 mg Polyethylene Glycol (Miralax (For Daily Use) -) 17 gm PO DAILY PRN PRN Reason: CONSTIPATION Potassium Phos/Sodium Phos (Phos-Nak Packet -) 1 packet PO TID [facility] Stop: 01/26/19 22:01 Last Admin: 01/26/19 12:44 Dose: 1 packet Warfarin Sodium (Coumadin -) 5 mg PO MoTuWeThFr@1800 [facility] Last Admin: 01/25/19 17:44 Dose: 5 mg Warfarin Sodium (Coumadin -) 6 mg PO SuSa@1800 [facility] - Objective Vital Signs: Vital Signs Temperature 98.4 F 01/26/19 14:57 Pulse Rate 94 H 01/26/19 14:57 Respiratory Rate 20 01/26/19 14:57 Blood Pressure 147/79 01/26/19 14:57 O2 Sat by Pulse Oximetry (%) 98 01/25/19 21:00 Constitutional: Yes: Well Nourished, Calm, Obese Eyes: Yes: WNL Neck: Yes: WNL Cardiovascular: Yes: Regular Rate and Rhythm, S1, S2 Respiratory: Yes: Diminished Gastrointestinal: Yes: Normal Bowel Sounds, Soft Extremities: Yes: WNL Edema: No Labs: CBC, BMP 01/26/19 07:50 01/26/19 07:50 INR, PTT INR 2.64 (0.83-1.09) H 01/25/19 07:50 Assessment/Plan Problem List - Problems (1) Former smoker, stopped smoking in distant past Code(s): Z87.891 - PERSONAL HISTORY OF NICOTINE DEPENDENCE (2) Pneumonia Code(s): J18.9 - PNEUMONIA, UNSPECIFIED ORGANISM (3) Anemia Code(s): D64.9 - ANEMIA, UNSPECIFIED Qualifiers: Iron deficiency anemia type: chronic blood loss (4) Chronic kidney disease Code(s): N18.9 - CHRONIC KIDNEY DISEASE, UNSPECIFIED (5) Diastolic dysfunction without heart failure Code(s): I51.89 - OTHER ILL-DEFINED HEART DISEASES (6) History of DVT of lower extremity Code(s): Z86.718 - PERSONAL HISTORY OF OTHER VENOUS THROMBOSIS AND EMBOLISM (7) History of pulmonary embolism Code(s): Z86.711 - PERSONAL HISTORY OF PULMONARY EMBOLISM (8) Hyperlipidemia associated with type 2 diabetes mellitus Code(s): E11.69 - TYPE 2 DIABETES MELLITUS WITH OTHER SPECIFIED COMPLICATION; E78.5 - HYPERLIPIDEMIA, UNSPECIFIED (9) Hypertension Code(s): I10 - ESSENTIAL (PRIMARY) HYPERTENSION Qualifiers: Hypertension type: essential hypertension Qualified Code(s): I10 - Essential (primary) hypertension Assessment/Plan Rocephin O2 as needed BD TX PRN AC No smoking continue Medrol for CAP sleep apnea testing after discharge DR FRENCH
[2019-01-26 16:45] VITALS: BMI 42.5
[2019-01-26] MEDS: WARFARIN NA 5 MG TABLET (UD) PO SCH (17:13)
[2019-01-26] MEDS: ATORVASTATIN CA 10 MG TABLET (FP) PO SCH (22:46)
[2019-01-26] MEDS: LATANOPROST 0.005% OPHTH SOLN 2.5ML BOTTLE OU SCH (22:54)
[2019-01-27 04:11] LABS: CARCINOEMBRYONIC ANTIGEN 6.8 ng/mL (0.0-4.7); SERUM IRON SATURATION 10 % (15-55); TOTAL IRON BINDING CAPACITY 252 ug/dL (250-450)
[2019-01-27] MEDS: metFORMIN HCL 500 MG TABLET (FP) PO SCH (06:48)
[2019-01-27] MEDS: glipiZIDE 5 MG TABLET (FP) PO SCH (06:49)
[2019-01-27] MEDS: INSULIN SLIDING SCALE (NOVOLOG) 1 VIAL SQ SCH ×4 (06:59→23:45)
[2019-01-27 08:11] LABS: PROTHROMBIN TIME (PATIENT) 53.1 SEC (9.7-13.0)
[2019-01-27 08:14] LABS: ALBUMIN 2.9 g/dl (3.4-5.0); BILIRUBIN,TOTAL 0.4 mg/dL (0.2-1); BLOOD UREA NITROGEN 24.3 mg/dL (7-18); CREATININE 1.4 mg/dL (0.55-1.3); MAGNESIUM 2.2 mg/dL (1.8-2.4); PHOSPHOROUS 2.7 mg/dL (2.5-4.9); POTASSIUM 3.6 mmol/L (3.5-5.1); TOT PROT 6.4 g/dl (6.4-8.2)
[2019-01-27 08:21] LABS: BASO % 0.6 % (0-2.0); HEMATOCRIT 32.3 % (32.4-45.2); HEMOGLOBIN 10.5 GM/dL (10.7-15.3); LYMPH % 11.8 % (8-40); MCH 25.6 pg (25.7-33.7); MCHC 32.5 g/dl (32.0-36.0); MEAN CELL VOLUME 78.8 fl (80-96); MEAN PLT VOLUME 9.7 fl (7.5-11.1); MONO % 6.6 % (3.8-10.2); PLATELET COUNT 348 K/MM3 (134-434); RDW 15.3 % (11.6-15.6); WHITE BLOOD COUNT 8.2 K/mm3 (4.0-10.0)
[2019-01-27] MEDS ORDERED: DEXTROSE 5%-WATER 100 ML IVPB ONE (10:08)
[2019-01-27] MEDS: PANTOPRAZOLE 40 MG TABLET (FP) PO SCH ×2 (10:28→23:41)
[2019-01-27] MEDS: amLODIPine BESYLATE 5 MG TABLET (FP) PO SCH (10:28)
[2019-01-27] MEDS: CHOLECALCIFEROL (VIT D3) 1,000 UNIT (25 MCG) TABLET PO SCH (10:28)
[2019-01-27] MEDS: METOPROLOL TARTRATE 25 MG TABLET (FP) PO SCH ×2 (10:28→23:41)
[2019-01-27] MEDS: CEFTRIAXONE 2 GM in DEXTROSE 5%-WATER 100 ML IVPB SCH (10:29)
[2019-01-27] MEDS: methylPREDNISolone NA SUCC 40 MG/1 ML VIAL IVPUSH SCH (10:29)
[2019-01-27] MEDS: FERROUS SO4 325 MG TABLET (FP) PO SCH (10:30)
[2019-01-27] MEDS: BUDESONIDE/FORMETEROL FUMARATE 160/4.5 mcg INHALER IH SCH ×2 (10:30→23:41)
[2019-01-27] MEDS: ENALAPRIL MALEATE 10 MG TABLET (FP) PO SCH ×2 (10:31→23:41)
--- NOTE | 2019-01-27 10:55 | PN ---
Progress Note (short form) - Note Progress Note: Feels better but still some wheezes. No CP. SOB better. Intake & Output 01/24/19 01/25/19 01/26/19 01/27/19 23:59 23:59 23:59 23:59 Intake Total 3150 2280 4925 Output Total 400 Balance 2750 2280 4925 Weight 225 lb 8 oz 225 lb Last Vital Signs Temp Pulse Resp BP Pulse Ox 99.0 F 74 20 126/58 L 97 01/27/19 06:00 01/27/19 06:00 01/27/19 06:00 01/27/19 06:00 01/26/19 21:00 Active Medications Acetaminophen (Tylenol -) 650 mg PO Q6H PRN PRN Reason: FEVER Last Admin: 01/25/19 01:56 Dose: 650 mg Albuterol Sulfate (Ventolin 0.083% Nebulizer Soln -) 1 amp NEB Q4H PRN PRN Reason: SHORT OF BREATH/WHEEZING Last Admin: 01/25/19 21:35 Dose: 1 amp Amlodipine Besylate (Norvasc -) 5 mg PO DAILY [facility] Last Admin: 01/27/19 10:28 Dose: 5 mg Atorvastatin Calcium (Lipitor -) 10 mg PO HS [facility] Last Admin: 01/26/19 22:46 Dose: 10 mg Budesonide/Formoterol Fumarate (Symbicort 160/4.5mcg -) 2 puff IH BID [facility] Last Admin: 01/27/19 10:30 Dose: 2 puff Cholecalciferol (Vitamin D3 -) 2,000 unit PO DAILY [facility] Last Admin: 01/27/19 10:28 Dose: 2,000 unit Enalapril Maleate (Vasotec -) 20 mg PO BID [facility] Last Admin: 01/27/19 10:31 Dose: 20 mg Ferrous Sulfate (Feosol -) 325 mg PO DAILY [facility] Last Admin: 01/27/19 10:30 Dose: 325 mg Glipizide (Glucotrol -) 5 mg PO 0700 [facility] Last Admin: 01/27/19 06:49 Dose: 5 mg Ceftriaxone Sodium 2 gm/ (Dextrose) 100 mls @ 200 mls/hr IVPB DAILY [facility] Last Admin: 01/27/19 10:29 Dose: 200 mls/hr Insulin Aspart (Novolog Vial Sliding Scale -) 1 vial SQ ACHS [facility]; Protocol Last Admin: 01/27/19 06:59 Dose: Not Given Latanoprost (Xalatan 0.005% Eye Drops -) 1 drop OU HS [facility] Last Admin: 01/26/19 22:54 Dose: 1 drop Metformin HCl (Glucophage -) 500 mg PO 0700 [facility] Last Admin: 01/27/19 06:48 Dose: 500 mg Methylprednisolone Sodium Succinate (Solu-Medrol -) 60 mg IVPUSH DAILY [facility] Last Admin: 01/27/19 10:29 Dose: 60 mg Metoprolol Tartrate (Lopressor -) 25 mg PO BID [facility] Last Admin: 01/27/19 10:28 Dose: 25 mg Pantoprazole Sodium (Protonix -) 40 mg PO BID [facility] Last Admin: 01/27/19 10:28 Dose: 40 mg Polyethylene Glycol (Miralax (For Daily Use) -) 17 gm PO DAILY PRN PRN Reason: CONSTIPATION Warfarin Sodium (Coumadin -) 5 mg PO MoTuWeThFr@1800 [facility] Last Admin: 01/26/19 17:13 Dose: 5 mg Warfarin Sodium (Coumadin -) 6 mg PO SuSa@1800 [facility] Constitutional: Yes: No Distress, Calm, Obese Eyes: Yes: Conjunctiva Clear, EOM Intact HENT: Yes: Atraumatic, Normocephalic Neck: Yes: Supple, Trachea Midline Cardiovascular: Yes: Regular Rate and Rhythm Respiratory: Yes: Cough, Diminished, Rhonchi. No: Accessory Muscle Use, Rales, SOB, Stridor, Wheezes ...Inspection: Yes: WNL ...Clubbing: No Gastrointestinal: Yes: Normal Bowel Sounds, Soft, Abdomen, Obese Renal/: Yes: WNL Musculoskeletal: Yes: WNL Extremities: Yes: WNL Edema: No Peripheral Pulses WNL: Yes Integumentary: Yes: WNL Neurological: Yes: WNL, Alert, Oriented ...Motor Strength: WNL Psychiatric: Yes: WNL, Alert, Oriented Labs: Laboratory Results - last 24 hr 01/26/19 01/26/19 01/26/19 07:50 07:50 12:15 WBC RBC Hgb Hct MCV MCH MCHC RDW Plt Count MPV Absolute Neuts (auto) Neutrophils % Lymphocytes % Monocytes % Eosinophils % Basophils % Nucleated RBC % PT with INR Sodium Potassium Chloride Carbon Dioxide Anion Gap BUN Creatinine Est GFR (CKD-EPI)AfAm Est GFR (CKD-EPI)NonAf POC Glucometer 214 Random Glucose Calcium Phosphorus Magnesium Iron 24 L TIBC 252 Iron Saturation 10 L Unsaturated IBC 228 Total Bilirubin AST ALT Alkaline Phosphatase Total Protein Albumin Tumor Marker AFP 2.0 Carcinoembryonic Ag 6.8 H 01/26/19 01/26/19 01/27/19 16:45 22:42 07:30 WBC 8.2 RBC 4.10 Hgb 10.5 L Hct 32.3 L MCV 78.8 L MCH 25.6 L MCHC 32.5 RDW 15.3 Plt Count 348 MPV 9.7 Absolute Neuts (auto) 6.6 Neutrophils % 81.0 Lymphocytes % 11.8 D Monocytes % 6.6 Eosinophils % 0.0 Basophils % 0.6 Nucleated RBC % 0 PT with INR Sodium Potassium Chloride Carbon Dioxide Anion Gap BUN Creatinine Est GFR (CKD-EPI)AfAm Est GFR (CKD-EPI)NonAf POC Glucometer 271 297 Random Glucose Calcium Phosphorus Magnesium Iron TIBC Iron Saturation Unsaturated IBC Total Bilirubin AST ALT Alkaline Phosphatase Total Protein Albumin Tumor Marker AFP Carcinoembryonic Ag 01/27/19 01/27/19 07:30 07:30 WBC RBC Hgb Hct MCV MCH MCHC RDW Plt Count MPV Absolute Neuts (auto) Neutrophils % Lymphocytes % Monocytes % Eosinophils % Basophils % Nucleated RBC % PT with INR 53.10 H Sodium 145 Potassium 3.6 Chloride 110 H Carbon Dioxide 27 Anion Gap 8 BUN 24.3 H Creatinine 1.4 H Est GFR (CKD-EPI)AfAm 42.79 Est GFR (CKD-EPI)NonAf 36.92 POC Glucometer Random Glucose 128 H Calcium 9.0 Phosphorus 2.7 Magnesium 2.2 Iron TIBC Iron Saturation Unsaturated IBC Total Bilirubin 0.4 AST 51 H ALT 77 H Alkaline Phosphatase 65 Total Protein 6.4 Albumin 2.9 L Tumor Marker AFP Carcinoembryonic Ag Problem List - Problems (1) Former smoker, stopped smoking in distant past Code(s): Z87.891 - PERSONAL HISTORY OF NICOTINE DEPENDENCE (2) Pneumonia Code(s): J18.9 - PNEUMONIA, UNSPECIFIED ORGANISM (3) Anemia Code(s): D64.9 - ANEMIA, UNSPECIFIED Qualifiers: Iron deficiency anemia type: chronic blood loss (4) Chronic kidney disease Code(s): N18.9 - CHRONIC KIDNEY DISEASE, UNSPECIFIED (5) Diastolic dysfunction without heart failure Code(s): I51.89 - OTHER ILL-DEFINED HEART DISEASES (6) History of DVT of lower extremity Code(s): Z86.718 - PERSONAL HISTORY OF OTHER VENOUS THROMBOSIS AND EMBOLISM (7) History of pulmonary embolism Code(s): Z86.711 - PERSONAL HISTORY OF PULMONARY EMBOLISM (8) Hyperlipidemia associated with type 2 diabetes mellitus Code(s): E11.69 - TYPE 2 DIABETES MELLITUS WITH OTHER SPECIFIED COMPLICATION; E78.5 - HYPERLIPIDEMIA, UNSPECIFIED (9) Hypertension Code(s): I10 - ESSENTIAL (PRIMARY) HYPERTENSION Qualifiers: Hypertension type: essential hypertension Qualified Code(s): I10 - Essential (primary) hypertension Assessment/Plan ABX per ID O2 as needed BD TX PRN Continue AC No smoking Daily Medrol for CAP Will require sleep apnea testing after discharge Dr Das Problem List - Problems (1) Former smoker, stopped smoking in distant past Code(s): Z87.891 - PERSONAL HISTORY OF NICOTINE DEPENDENCE (2) Pneumonia Code(s): J18.9 - PNEUMONIA, UNSPECIFIED ORGANISM Qualifiers: Laterality: right Lung location: lower lobe of lung (3) Anemia Code(s): D64.9 - ANEMIA, UNSPECIFIED Qualifiers: Iron deficiency anemia type: chronic blood loss (4) Chronic kidney disease Code(s): N18.9 - CHRONIC KIDNEY DISEASE, UNSPECIFIED Qualifiers: Chronic kidney disease stage: stage 3 (moderate) Qualified Code(s): N18.3 - Chronic kidney disease, stage 3 (moderate) (5) Diastolic dysfunction without heart failure Code(s): I51.89 - OTHER ILL-DEFINED HEART DISEASES (6) History of DVT of lower extremity Code(s): Z86.718 - PERSONAL HISTORY OF OTHER VENOUS THROMBOSIS AND EMBOLISM (7) History of pulmonary embolism Code(s): Z86.711 - PERSONAL HISTORY OF PULMONARY EMBOLISM (8) Hyperlipidemia associated with type 2 diabetes mellitus Code(s): E11.69 - TYPE 2 DIABETES MELLITUS WITH OTHER SPECIFIED COMPLICATION; E78.5 - HYPERLIPIDEMIA, UNSPECIFIED (9) Hypertension Code(s): I10 - ESSENTIAL (PRIMARY) HYPERTENSION Qualifiers: Hypertension type: essential hypertension Qualified Code(s): I10 - Essential (primary) hypertension
--- NOTE | 2019-01-27 12:06 | PN ---
Progress Note, Physician History of Present Illness: Pt's breathing is better, but pt is minimally active. Pt w/o SOB, CP, palpitations, abd pain - Current Medication List Current Medications: Active Medications Acetaminophen (Tylenol -) 650 mg PO Q6H PRN PRN Reason: FEVER Last Admin: 01/25/19 01:56 Dose: 650 mg Albuterol Sulfate (Ventolin 0.083% Nebulizer Soln -) 1 amp NEB Q4H PRN PRN Reason: SHORT OF BREATH/WHEEZING Last Admin: 01/25/19 21:35 Dose: 1 amp Amlodipine Besylate (Norvasc -) 5 mg PO DAILY [facility] Last Admin: 01/27/19 10:28 Dose: 5 mg Atorvastatin Calcium (Lipitor -) 10 mg PO HS [facility] Last Admin: 01/26/19 22:46 Dose: 10 mg Budesonide/Formoterol Fumarate (Symbicort 160/4.5mcg -) 2 puff IH BID [facility] Last Admin: 01/27/19 10:30 Dose: 2 puff Cholecalciferol (Vitamin D3 -) 2,000 unit PO DAILY [facility] Last Admin: 01/27/19 10:28 Dose: 2,000 unit Enalapril Maleate (Vasotec -) 20 mg PO BID [facility] Last Admin: 01/27/19 10:31 Dose: 20 mg Ferrous Sulfate (Feosol -) 325 mg PO DAILY [facility] Last Admin: 01/27/19 10:30 Dose: 325 mg Glipizide (Glucotrol -) 5 mg PO 0700 [facility] Last Admin: 01/27/19 06:49 Dose: 5 mg Ceftriaxone Sodium 2 gm/ (Dextrose) 100 mls @ 200 mls/hr IVPB DAILY [facility] Last Admin: 01/27/19 10:29 Dose: 200 mls/hr Insulin Aspart (Novolog Vial Sliding Scale -) 1 vial SQ ACHS [facility]; Protocol Last Admin: 01/27/19 06:59 Dose: Not Given Latanoprost (Xalatan 0.005% Eye Drops -) 1 drop OU HS [facility] Last Admin: 01/26/19 22:54 Dose: 1 drop Metformin HCl (Glucophage -) 500 mg PO 0700 [facility] Last Admin: 01/27/19 06:48 Dose: 500 mg Methylprednisolone Sodium Succinate (Solu-Medrol -) 40 mg IVPUSH DAILY [facility] Metoprolol Tartrate (Lopressor -) 25 mg PO BID [facility] Last Admin: 01/27/19 10:28 Dose: 25 mg Pantoprazole Sodium (Protonix -) 40 mg PO BID [facility] Last Admin: 01/27/19 10:28 Dose: 40 mg Polyethylene Glycol (Miralax (For Daily Use) -) 17 gm PO DAILY PRN PRN Reason: CONSTIPATION Warfarin Sodium (Coumadin -) 5 mg PO MoTuWeThFr@1800 [facility] Last Admin: 01/26/19 17:13 Dose: 5 mg Warfarin Sodium (Coumadin -) 6 mg PO SuSa@1800 [facility] - Objective Vital Signs: Vital Signs Temperature 99.0 F 01/27/19 06:00 Pulse Rate 74 01/27/19 06:00 Respiratory Rate 20 01/27/19 06:00 Blood Pressure 126/58 L 01/27/19 06:00 O2 Sat by Pulse Oximetry (%) 97 01/26/19 21:00 Constitutional: Yes: No Distress, Calm Cardiovascular: Yes: Regular Rate and Rhythm, S1, S2 Respiratory: Yes: Regular, CTA Bilaterally. No: Rales Gastrointestinal: Yes: Normal Bowel Sounds, Soft, Abdomen, Obese. No: Tenderness Edema: No Neurological: Yes: Alert, Oriented Labs: CBC, BMP 01/27/19 07:30 01/27/19 07:30 INR, PTT INR 2.64 (0.83-1.09) H 01/25/19 07:50 Problem List - Problems (1) Right lower lobe pneumonia Code(s): J18.1 - LOBAR PNEUMONIA, UNSPECIFIED ORGANISM (2) Former cigarette smoker Code(s): Z87.891 - PERSONAL HISTORY OF NICOTINE DEPENDENCE (3) Hx of pulmonary embolus Code(s): Z86.711 - PERSONAL HISTORY OF PULMONARY EMBOLISM (4) Anemia Code(s): D64.9 - ANEMIA, UNSPECIFIED Qualifiers: Iron deficiency anemia type: chronic blood loss (5) History of colon cancer in adulthood Code(s): Z85.038 - PERSONAL HISTORY OF MALIGNANT NEOPLASM OF LARGE INTESTINE (6) Occult blood in stools Code(s): R19.5 - OTHER FECAL ABNORMALITIES (7) Weight loss, non-intentional Code(s): R63.4 - ABNORMAL WEIGHT LOSS (8) Elevated liver enzymes Code(s): R74.8 - ABNORMAL LEVELS OF OTHER SERUM ENZYMES (9) Fatty (change of) liver, not elsewhere classified Code(s): K76.0 - FATTY (CHANGE OF) LIVER, NOT ELSEWHERE CLASSIFIED (10) Chronic kidney disease Code(s): N18.9 - CHRONIC KIDNEY DISEASE, UNSPECIFIED Qualifiers: Chronic kidney disease stage: stage 3 (moderate) Qualified Code(s): N18.3 - Chronic kidney disease, stage 3 (moderate) (11) Diastolic dysfunction without heart failure Code(s): I51.89 - OTHER ILL-DEFINED HEART DISEASES (12) Hypertension Code(s): I10 - ESSENTIAL (PRIMARY) HYPERTENSION Qualifiers: Hypertension type: essential hypertension Qualified Code(s): I10 - Essential (primary) hypertension (13) Renal cyst, left Assessment/Plan: Pt was seen by Code(s): N28.1 - CYST OF KIDNEY, ACQUIRED (14) Hydronephrosis, right Code(s): N13.30 - UNSPECIFIED HYDRONEPHROSIS Assessment/Plan IV Steroids -per Pulmonary IV abtx I encouraged pt to be OOTBC, walk. Pt needs renal US repeated in 6 months. AM labs Case was d/w pt's nurse.
--- NOTE | 2019-01-27 12:42 | PN ---
Progress Note (short form) - Note Progress Note: Renal follow up for CKD Pt seen and examined at the bedside awake and alert feels better no sob, cp, abd pain, fever or chills denies any flank pain Vital Signs Temperature 99.0 F 01/27/19 06:00 Pulse Rate 74 01/27/19 06:00 Respiratory Rate 20 01/27/19 06:00 Blood Pressure 126/58 L 01/27/19 06:00 O2 Sat by Pulse Oximetry (%) 97 01/26/19 21:00 Intake & Output 01/24/19 01/25/19 01/26/19 01/27/19 23:59 23:59 23:59 23:59 Intake Total 3150 2280 4925 Output Total 400 Balance 2750 2280 4925 Weight 102.285 kg 102.058 kg NAD RRR CTA soft NT/ND, Obese No LE edema no bladder distension CBC, BMP 01/27/19 07:30 01/27/19 07:30 Current Medications Acetaminophen (Tylenol -) 650 mg PO Q6H PRN PRN Reason: FEVER Last Admin: 01/25/19 01:56 Dose: 650 mg Albuterol Sulfate (Ventolin 0.083% Nebulizer Soln -) 1 amp NEB Q4H PRN PRN Reason: SHORT OF BREATH/WHEEZING Last Admin: 01/25/19 21:35 Dose: 1 amp Amlodipine Besylate (Norvasc -) [address] [facility] Last Admin: 01/27/19 10:28 Dose: 5 mg Atorvastatin Calcium (Lipitor -) [address] [facility] Last Admin: 01/26/19 22:46 Dose: 10 mg Budesonide/Formoterol Fumarate (Symbicort 160/4.5mcg -) [address] [facility] Last Admin: 01/27/19 10:30 Dose: 2 puff Cholecalciferol (Vitamin D3 -) 2,[address] [facility] Last Admin: 01/27/19 10:28 Dose: 2,000 unit Enalapril Maleate (Vasotec -) [address] [facility] Last Admin: 01/27/19 10:31 Dose: 20 mg Ferrous Sulfate (Feosol -) [address] [facility] Last Admin: 01/27/19 10:30 Dose: 325 mg Glipizide (Glucotrol -) [address] [facility] Last Admin: 01/27/19 06:49 Dose: 5 mg Ceftriaxone Sodium 2 gm/ (Dextrose) 100 mls @ 200 mls/hr IVPB DAILY [facility] Last Admin: 01/27/19 10:29 Dose: 200 mls/hr Insulin Aspart (Novolog Vial Sliding Scale -) [address] [facility]; Protocol Last Admin: 01/27/19 12:02 Dose: Not Given Latanoprost (Xalatan 0.005% Eye Drops -) [address] [facility] Last Admin: 01/26/19 22:54 Dose: 1 drop Metformin HCl (Glucophage -) [address] [facility] Last Admin: 01/27/19 06:48 Dose: 500 mg Methylprednisolone Sodium Succinate (Solu-Medrol -) [address] [facility] Metoprolol Tartrate (Lopressor -) [address] [facility] Last Admin: 01/27/19 10:28 Dose: 25 mg Pantoprazole Sodium (Protonix -) [address] [facility] Last Admin: 01/27/19 10:28 Dose: 40 mg Polyethylene Glycol (Miralax (For Daily Use) -) 17 gm PO DAILY PRN PRN Reason: CONSTIPATION Warfarin Sodium (Coumadin -) 5 mg PO MoTuWeThFr@1800 [facility] Last Admin: 01/26/19 17:13 Dose: 5 mg Warfarin Sodium (Coumadin -) 6 mg PO SuSa@1800 [facility] 73 year old woman with history of CKD 3, Colon Cancer s/p resection 2001, DM, hypertension, hyperlipidemia, DVT/PE, Obesity presents with fever, abdominal pain and cough and found to have Cr of 1.4. #CKD stage 3 #RLL PNA #Unintentional weight loss #Hypertension #DM #Left kidney mass Renal function stable continue Abx as per ID check renal US to characterize left kidney hypodense mass seen on CT of Abd Renal US showed complex cyst, seen by urology, to have repeat US in 6 months check Renal scan with Lasix to r/o functional hydroneprosis Trend renal function and electrolytes daily goal BP ~130/80 can continue metformin for now Thank you Will follow Guillaume El DO
[2019-01-27 12:59] LABS: INR 4.43 (0.83-1.09)
--- NOTE | 2019-01-27 13:10 | PN ---
Progress Note, Physician History of Present Illness: Dyspnea, cough, wheezes continues to improve. Afebrile. - Current Medication List Current Medications: Active Medications Acetaminophen (Tylenol -) 650 mg PO Q6H PRN PRN Reason: FEVER Last Admin: 01/25/19 01:56 Dose: 650 mg Albuterol Sulfate (Ventolin 0.083% Nebulizer Soln -) 1 amp NEB Q4H PRN PRN Reason: SHORT OF BREATH/WHEEZING Last Admin: 01/25/19 21:35 Dose: 1 amp Amlodipine Besylate (Norvasc -) 5 mg PO DAILY [facility] Last Admin: 01/27/19 10:28 Dose: 5 mg Atorvastatin Calcium (Lipitor -) 10 mg PO HS [facility] Last Admin: 01/26/19 22:46 Dose: 10 mg Budesonide/Formoterol Fumarate (Symbicort 160/4.5mcg -) 2 puff IH BID [facility] Last Admin: 01/27/19 10:30 Dose: 2 puff Cholecalciferol (Vitamin D3 -) 2,000 unit PO DAILY [facility] Last Admin: 01/27/19 10:28 Dose: 2,000 unit Enalapril Maleate (Vasotec -) 20 mg PO BID [facility] Last Admin: 01/27/19 10:31 Dose: 20 mg Ferrous Sulfate (Feosol -) 325 mg PO DAILY [facility] Last Admin: 01/27/19 10:30 Dose: 325 mg Glipizide (Glucotrol -) 5 mg PO 0700 [facility] Last Admin: 01/27/19 06:49 Dose: 5 mg Ceftriaxone Sodium 2 gm/ (Dextrose) 100 mls @ 200 mls/hr IVPB DAILY [facility] Last Admin: 01/27/19 10:29 Dose: 200 mls/hr Insulin Aspart (Novolog Vial Sliding Scale -) 1 vial SQ ACHS [facility]; Protocol Last Admin: 01/27/19 12:02 Dose: Not Given Latanoprost (Xalatan 0.005% Eye Drops -) 1 drop OU HS [facility] Last Admin: 01/26/19 22:54 Dose: 1 drop Metformin HCl (Glucophage -) 500 mg PO 0700 [facility] Last Admin: 01/27/19 06:48 Dose: 500 mg Methylprednisolone Sodium Succinate (Solu-Medrol -) 40 mg IVPUSH DAILY [facility] Metoprolol Tartrate (Lopressor -) 25 mg PO BID [facility] Last Admin: 01/27/19 10:28 Dose: 25 mg Pantoprazole Sodium (Protonix -) 40 mg PO BID [facility] Last Admin: 01/27/19 10:28 Dose: 40 mg Polyethylene Glycol (Miralax (For Daily Use) -) 17 gm PO DAILY PRN PRN Reason: CONSTIPATION Warfarin Sodium (Coumadin -) 5 mg PO MoTuWeThFr@1800 [facility] Last Admin: 01/26/19 17:13 Dose: 5 mg Warfarin Sodium (Coumadin -) 6 mg PO SuSa@1800 [facility] - Objective Vital Signs: Vital Signs Temperature 99.0 F 01/27/19 06:00 Pulse Rate 74 01/27/19 06:00 Respiratory Rate 20 01/27/19 06:00 Blood Pressure 126/58 L 01/27/19 06:00 O2 Sat by Pulse Oximetry (%) 97 01/26/19 21:00 Constitutional: Yes: No Distress, Calm Neck: Yes: Supple Cardiovascular: Yes: Regular Rate and Rhythm Respiratory: Yes: Regular, Diminished Gastrointestinal: Yes: Normal Bowel Sounds, Soft, Abdomen, Obese Edema: Yes Edema: LLE: Trace, RLE: Trace Labs: CBC, BMP 01/27/19 07:30 01/27/19 07:30 INR, PTT INR 4.43 (0.83-1.09) H* 01/27/19 07:30 Problem List - Problems (1) Chronic anticoagulation Code(s): Z79.01 - LONGTERM (CURRENT) USE OF ANTICOAGULANTS (2) Pneumonia Code(s): J18.9 - PNEUMONIA, UNSPECIFIED ORGANISM Qualifiers: Laterality: right Lung location: lower lobe of lung (3) Anemia Code(s): D64.9 - ANEMIA, UNSPECIFIED Qualifiers: Iron deficiency anemia type: chronic blood loss (4) Chronic kidney disease Code(s): N18.9 - CHRONIC KIDNEY DISEASE, UNSPECIFIED Qualifiers: Chronic kidney disease stage: stage 3 (moderate) Qualified Code(s): N18.3 - Chronic kidney disease, stage 3 (moderate) (5) Diastolic dysfunction without heart failure Code(s): I51.89 - OTHER ILL-DEFINED HEART DISEASES (6) History of DVT of lower extremity Code(s): Z86.718 - PERSONAL HISTORY OF OTHER VENOUS THROMBOSIS AND EMBOLISM (7) History of pulmonary embolism Code(s): Z86.711 - PERSONAL HISTORY OF PULMONARY EMBOLISM (8) Hyperlipidemia associated with type 2 diabetes mellitus Code(s): E11.69 - TYPE 2 DIABETES MELLITUS WITH OTHER SPECIFIED COMPLICATION; E78.5 - HYPERLIPIDEMIA, UNSPECIFIED (9) Hypertension Code(s): I10 - ESSENTIAL (PRIMARY) HYPERTENSION Qualifiers: Hypertension type: essential hypertension Qualified Code(s): I10 - Essential (primary) hypertension Assessment/Plan 01/26/2019 Echocardiography: Normal LV size and fxn, mild TR normal RVSP, tr- mild MR 1. RLL pneumonia improving 2. 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 HTN 4. DM 5. Hypercholesterolemia 6. CKD 3 6. History of colon CA s/p resection 7. Left complex renal cyst, history of Nephrolithiasis x3 with obstructed ureterolithiasis s/p stent placement in 2018 PLAN: 1. Continue Norvasc 5 qd, Lipitor 10 qhs, Vasotec 20 bid, Lopressor 25 bid 2. Continue abx per ID, BD, IV steroid taper, O2 as needed to maintain FIO2 4. Hold Warfarin for INR 2-3 and GI protection 5. Renal US confirms left complex renal cyst, repeat 6 months. Renal scan w lasix recommended to r/o functional obstruction vs persistant hydro 6. Will require sleep apnea testing after discharge
[2019-01-27 14:14] LABS: TRANSGLUTAMINASE IGA < 2 U/mL (0-3); TRANSGLUTAMINASE IGG < 2 U/mL (0-5)
--- NOTE | 2019-01-27 14:31 | PN ---
Progress Note (short form) - Note Progress Note: doing much better today minimal cough Vital Signs Period Temp Pulse Resp BP Sys/Funez Pulse Ox Last 24 Hr 97.6 F-99.0 F 74-98 20-20 113-147/58-79 94-97 cor-rrr lungs decreased bs at bases abd soft,nt ext no edema CBC, BMP 01/27/19 07:30 01/27/19 07:30 Microbiology 01/24/19 09:15 Blood - Peripheral Venous Blood Culture - Preliminary NO GROWTH OBTAINED AFTER 72 HOURS, INCUBATION TO CONTINUE FOR 2 DAYS. 01/24/19 09:00 Blood - Peripheral Venous Blood Culture - Preliminary NO GROWTH OBTAINED AFTER 72 HOURS, INCUBATION TO CONTINUE FOR 2 DAYS. 01/25/19 04:00 Urine For Antigen Detection Legionella Antigen - Final 01/25/19 04:00 Urine For Antigen Detection Streptococcus pneumoniae Antigen (M - Final 01/24/19 11:25 Urine - Urine Clean Catch Urine Culture - Final Contaminated: Please Repeat a/p RLL pneumonia continue rocephin day #4 d/c zithromax- has received 3 days clinically improving hopefully home soon can switch to po augmentin in am belinda/ckd- improved Problem List - Problems (1) Sepsis Code(s): A41.9 - SEPSIS, UNSPECIFIED ORGANISM (2) Pneumonia Code(s): J18.9 - PNEUMONIA, UNSPECIFIED ORGANISM Qualifiers: Laterality: right Lung location: lower lobe of lung (3) Chronic kidney disease Code(s): N18.9 - CHRONIC KIDNEY DISEASE, UNSPECIFIED Qualifiers: Chronic kidney disease stage: stage 3 (moderate) Qualified Code(s): N18.3 - Chronic kidney disease, stage 3 (moderate)
[2019-01-27] MEDS: ALBUTEROL SO4 0.083% IH SOL 2.5 MG/3 ML VIAL.NEB. NEB PRN (22:25)
[2019-01-27] MEDS: ATORVASTATIN CA 10 MG TABLET (FP) PO SCH (23:41)
[2019-01-27] MEDS: LATANOPROST 0.005% OPHTH SOLN 2.5ML BOTTLE OU SCH (23:42)
[2019-01-28] MEDS: INSULIN SLIDING SCALE (NOVOLOG) 1 VIAL SQ SCH ×4 (06:03→21:15)
[2019-01-28] MEDS: metFORMIN HCL 500 MG TABLET (FP) PO SCH (06:05)
[2019-01-28] MEDS: glipiZIDE 5 MG TABLET (FP) PO SCH (06:06)
[2019-01-28 07:35] LABS: HEMATOCRIT 29.5 % (32.4-45.2); HEMOGLOBIN 9.6 GM/dL (10.7-15.3); MCH 25.6 pg (25.7-33.7); MCHC 32.6 g/dl (32.0-36.0); MEAN CELL VOLUME 78.5 fl (80-96); MEAN PLT VOLUME 9.6 fl (7.5-11.1); RBC 3.75 M/mm3 (3.60-5.2); RDW 14.9 % (11.6-15.6); WHITE BLOOD COUNT 8.1 K/mm3 (4.0-10.0)
[2019-01-28 07:41] LABS: ALBUMIN 2.7 g/dl (3.4-5.0); BILIRUBIN,TOTAL 0.2 mg/dL (0.2-1); BLOOD UREA NITROGEN 26.6 mg/dL (7-18); CALCIUM 8.5 mg/dL (8.5-10.1); CREATININE 1.3 mg/dL (0.55-1.3); POTASSIUM 3.8 mmol/L (3.5-5.1); TOT PROT 5.9 g/dl (6.4-8.2)
[2019-01-28 07:56] LABS: INR 3.87 (0.83-1.09); PROTHROMBIN TIME (PATIENT) 46.3 SEC (9.7-13.0)
[2019-01-28 08:02] LABS: PLATELET COUNT 370 K/MM3 (134-434)
--- NOTE | 2019-01-28 09:32 | PN ---
Progress Note, Physician History of Present Illness: Dyspnea, cough, wheezes continues to improve. Afebrile. - Current Medication List Current Medications: Active Medications Acetaminophen (Tylenol -) 650 mg PO Q6H PRN PRN Reason: FEVER Last Admin: 01/25/19 01:56 Dose: 650 mg Albuterol Sulfate (Ventolin 0.083% Nebulizer Soln -) 1 amp NEB Q4H PRN PRN Reason: SHORT OF BREATH/WHEEZING Last Admin: 01/27/19 22:25 Dose: 1 amp Amlodipine Besylate (Norvasc -) 5 mg PO DAILY [facility] Last Admin: 01/27/19 10:28 Dose: 5 mg Atorvastatin Calcium (Lipitor -) 10 mg PO HS [facility] Last Admin: 01/27/19 23:41 Dose: 10 mg Budesonide/Formoterol Fumarate (Symbicort 160/4.5mcg -) 2 puff IH BID [facility] Last Admin: 01/27/19 23:41 Dose: 2 puff Cholecalciferol (Vitamin D3 -) 2,000 unit PO DAILY [facility] Last Admin: 01/27/19 10:28 Dose: 2,000 unit Enalapril Maleate (Vasotec -) 20 mg PO BID [facility] Last Admin: 01/27/19 23:41 Dose: 20 mg Ferrous Sulfate (Feosol -) 325 mg PO DAILY [facility] Last Admin: 01/27/19 10:30 Dose: 325 mg Glipizide (Glucotrol -) 5 mg PO 0700 [facility] Last Admin: 01/28/19 06:06 Dose: 5 mg Ceftriaxone Sodium 2 gm/ (Dextrose) 100 mls @ 200 mls/hr IVPB DAILY [facility] Last Admin: 01/27/19 10:29 Dose: 200 mls/hr Insulin Aspart (Novolog Vial Sliding Scale -) 1 vial SQ ACHS [facility]; Protocol Last Admin: 01/28/19 06:03 Dose: Not Given Latanoprost (Xalatan 0.005% Eye Drops -) 1 drop OU HS [facility] Last Admin: 01/27/19 23:42 Dose: 1 drop Metformin HCl (Glucophage -) 500 mg PO 0700 [facility] Last Admin: 01/28/19 06:05 Dose: 500 mg Methylprednisolone Sodium Succinate (Solu-Medrol -) 40 mg IVPUSH DAILY [facility] Metoprolol Tartrate (Lopressor -) 25 mg PO BID [facility] Last Admin: 01/27/19 23:41 Dose: 25 mg Pantoprazole Sodium (Protonix -) 40 mg PO BID [facility] Last Admin: 01/27/19 23:41 Dose: 40 mg Polyethylene Glycol (Miralax (For Daily Use) -) 17 gm PO DAILY PRN PRN Reason: CONSTIPATION Warfarin Sodium (Coumadin -) 5 mg PO MoTuWeThFr@1800 [facility] Last Admin: 01/26/19 17:13 Dose: 5 mg Warfarin Sodium (Coumadin -) 6 mg PO SuSa@1800 [facility] - Objective Vital Signs: Vital Signs Temperature 98.1 F 01/28/19 06:00 Pulse Rate 80 01/28/19 06:00 Respiratory Rate 20 01/28/19 06:00 Blood Pressure 122/61 01/28/19 06:00 O2 Sat by Pulse Oximetry (%) 94 L 01/27/19 21:00 Constitutional: Yes: No Distress, Calm Neck: Yes: Supple Cardiovascular: Yes: Regular Rate and Rhythm Respiratory: Yes: Regular, Cough, Diminished Gastrointestinal: Yes: Normal Bowel Sounds, Soft, Abdomen, Obese Edema: No Labs: CBC, BMP 01/28/19 06:00 01/28/19 06:00 INR, PTT INR 3.87 (0.83-1.09) H 01/28/19 06:00 Problem List - Problems (1) Chronic anticoagulation Code(s): Z79.01 - INTERMEDIATE (CURRENT) USE OF ANTICOAGULANTS (2) Pneumonia Code(s): J18.9 - PNEUMONIA, UNSPECIFIED ORGANISM Qualifiers: Laterality: right Lung location: lower lobe of lung (3) Anemia Code(s): D64.9 - ANEMIA, UNSPECIFIED Qualifiers: Iron deficiency anemia type: chronic blood loss (4) Chronic kidney disease Code(s): N18.9 - CHRONIC KIDNEY DISEASE, UNSPECIFIED Qualifiers: Chronic kidney disease stage: stage 3 (moderate) Qualified Code(s): N18.3 - Chronic kidney disease, stage 3 (moderate) (5) Diastolic dysfunction without heart failure Code(s): I51.89 - OTHER ILL-DEFINED HEART DISEASES (6) History of DVT of lower extremity Code(s): Z86.718 - PERSONAL HISTORY OF OTHER VENOUS THROMBOSIS AND EMBOLISM (7) History of pulmonary embolism Code(s): Z86.711 - PERSONAL HISTORY OF PULMONARY EMBOLISM (8) Hyperlipidemia associated with type 2 diabetes mellitus Code(s): E11.69 - TYPE 2 DIABETES MELLITUS WITH OTHER SPECIFIED COMPLICATION; E78.5 - HYPERLIPIDEMIA, UNSPECIFIED (9) Hypertension Code(s): I10 - ESSENTIAL (PRIMARY) HYPERTENSION Qualifiers: Hypertension type: essential hypertension Qualified Code(s): I10 - Essential (primary) hypertension Assessment/Plan 01/26/2019 Echocardiography: Normal LV size and fxn, mild TR normal RVSP, tr- mild MR 1. RLL pneumonia improving 2. 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 HTN 4. DM 5. Hypercholesterolemia 6. CKD 3 7. History of colon CA s/p resection 8. Left complex renal cyst, history of Nephrolithiasis x3 with obstructed ureterolithiasis s/p stent placement in 2018 PLAN: 1. Continue Norvasc 5 qd, Lipitor 10 qhs, Vasotec 20 bid, Lopressor 25 bid 2. Continue abx per ID, BD, IV steroid taper, O2 as needed to maintain FIO2 3. Hold Warfarin for INR 2-3 and GI protection 4. Renal US confirms left complex renal cyst, repeat 6 months. Renal scan w lasix recommended to r/o functional obstruction vs persistant hydro 5. Will require sleep apnea testing after discharge
[2019-01-28] MEDS ORDERED: DEXTROSE 5%-WATER 100 ML IVPB ONE (09:59)
[2019-01-28] MEDS: methylPREDNISolone NA SUCC 40 MG/1 ML VIAL IVPUSH SCH ×2 (10:05→15:25)
[2019-01-28] MEDS: CEFTRIAXONE 2 GM in DEXTROSE 5%-WATER 100 ML IVPB SCH ×2 (10:10→15:32)
[2019-01-28] MEDS: PANTOPRAZOLE 40 MG TABLET (FP) PO SCH ×2 (10:11→21:10)
[2019-01-28] MEDS: CHOLECALCIFEROL (VIT D3) 1,000 UNIT (25 MCG) TABLET PO SCH (10:12)
[2019-01-28] MEDS: amLODIPine BESYLATE 5 MG TABLET (FP) PO SCH (10:12)
[2019-01-28] MEDS: ENALAPRIL MALEATE 10 MG TABLET (FP) PO SCH ×2 (10:12→21:11)
[2019-01-28] MEDS: FERROUS SO4 325 MG TABLET (FP) PO SCH (10:12)
[2019-01-28] MEDS: METOPROLOL TARTRATE 25 MG TABLET (FP) PO SCH ×2 (10:12→21:10)
[2019-01-28] MEDS: BUDESONIDE/FORMETEROL FUMARATE 160/4.5 mcg INHALER IH SCH ×2 (10:16→21:17)
--- NOTE | 2019-01-28 12:17 | PN ---
Progress Note, Physician Chief Complaint: the patient seen and examined in her room. She is scheduled for a furosemide renal scan later today. Denies any acute complaints. No chest pain, no shortness of breath, reports good urine output On IV Rocephin for pneumonia - Current Medication List Current Medications: Active Medications Acetaminophen (Tylenol -) 650 mg PO Q6H PRN PRN Reason: FEVER Last Admin: 01/25/19 01:56 Dose: 650 mg Albuterol Sulfate (Ventolin 0.083% Nebulizer Soln -) 1 amp NEB Q4H PRN PRN Reason: SHORT OF BREATH/WHEEZING Last Admin: 01/27/19 22:25 Dose: 1 amp Amlodipine Besylate (Norvasc -) 5 mg PO DAILY [facility] Last Admin: 01/28/19 10:12 Dose: 5 mg Atorvastatin Calcium (Lipitor -) 10 mg PO HS [facility] Last Admin: 01/27/19 23:41 Dose: 10 mg Budesonide/Formoterol Fumarate (Symbicort 160/4.5mcg -) 2 puff IH BID [facility] Last Admin: 01/28/19 10:16 Dose: 2 puff Cholecalciferol (Vitamin D3 -) 2,000 unit PO DAILY [facility] Last Admin: 01/28/19 10:12 Dose: 2,000 unit Enalapril Maleate (Vasotec -) 20 mg PO BID [facility] Last Admin: 01/28/19 10:12 Dose: 20 mg Ferrous Sulfate (Feosol -) 325 mg PO DAILY [facility] Last Admin: 01/28/19 10:12 Dose: 325 mg Glipizide (Glucotrol -) 5 mg PO 0700 [facility] Last Admin: 01/28/19 06:06 Dose: 5 mg Ceftriaxone Sodium 2 gm/ (Dextrose) 100 mls @ 200 mls/hr IVPB DAILY [facility] Last Admin: 01/28/19 10:10 Dose: 200 mls/hr Insulin Aspart (Novolog Vial Sliding Scale -) 1 vial SQ ACHS [facility]; Protocol Last Admin: 01/28/19 11:09 Dose: Not Given Latanoprost (Xalatan 0.005% Eye Drops -) 1 drop OU HS [facility] Last Admin: 01/27/19 23:42 Dose: 1 drop Metformin HCl (Glucophage -) 500 mg PO 0700 [facility] Last Admin: 06/28/19 06:05 Dose: 500 mg Methylprednisolone Sodium Succinate (Solu-Medrol -) 40 mg IVPUSH DAILY [facility] Last Admin: 01/28/19 10:05 Dose: 40 mg Metoprolol Tartrate (Lopressor -) 25 mg PO BID [facility] Last Admin: 01/28/19 10:12 Dose: 25 mg Pantoprazole Sodium (Protonix -) 40 mg PO BID [facility] Last Admin: 01/28/19 10:11 Dose: 40 mg Polyethylene Glycol (Miralax (For Daily Use) -) 17 gm PO DAILY PRN PRN Reason: CONSTIPATION Warfarin Sodium (Coumadin -) 5 mg PO MoTuWeThFr@1800 [facility] Last Admin: 01/26/19 17:13 Dose: 5 mg Warfarin Sodium (Coumadin -) 6 mg PO SuSa@1800 [facility] - Objective Vital Signs: Vital Signs Temperature 98.1 F 01/28/19 06:00 Pulse Rate 80 01/28/19 06:00 Respiratory Rate 20 01/28/19 06:00 Blood Pressure 122/61 01/28/19 06:00 O2 Sat by Pulse Oximetry (%) 94 L 01/27/19 21:00 Constitutional: Yes: Well Nourished, No Distress Eyes: Yes: Conjunctiva Clear HENT: Yes: Normocephalic Neck: Yes: Supple Cardiovascular: Yes: Regular Rate and Rhythm Respiratory: Yes: CTA Bilaterally Gastrointestinal: Yes: Normal Bowel Sounds, Soft, Abdomen, Obese Genitourinary: No: Bladder Distention, CVA Tenderness - Left, CVA Tenderness - Right Musculoskeletal: Yes: Back Pain, Joint Stiffness, Muscle Pain Labs: CBC, BMP 01/28/19 06:00 01/28/19 06:00 INR, PTT INR 3.87 (0.83-1.09) H 01/28/19 06:00 Assessment/Plan 73 year old woman with history of CKD 3, Colon Cancer s/p resection 2001, DM, hypertension, hyperlipidemia, DVT/PE, Obesity presents with fever, abdominal pain and cough and found to have Cr of 1.4. #CKD stage 3 #RLL PNA #Unintentional weight loss #Hypertension #DM #Left kidney mass Renal function stable continue Abx as per ID check renal US to characterize left kidney hypodense mass seen on CT of Abd Renal US showed complex cyst, seen by urology, to have repeat US in 6 months check Renal scan with Lasix to r/o functional hydroneprosis Trend renal function and electrolytes daily goal BP ~130/80 can continue metformin for now this is a 73-year-old -[place] female known to our service admitted with abdominal pain, cough and elevated BUN and creatinine. the patient has a complex cyst of the kidney which has unchanged from her previous studies. She is receiving IV antibiotics for the pneumonia. Acute kidney injury superimposed on her chronic kidney disease. The acute renal dysfunction seems to be related to the infection and the other hemodynamic changes. The renal functions are expected to settle at her baseline. She is being worked up by urologist about the renal cyst versus hydronephrosis. Blood pressure seems to be fluctuant but will monitor closely Thank you Lisa Antonio
--- NOTE | 2019-01-28 13:17 | PN ---
Progress Note (short form) - Note Progress Note: no fevers, eating lunch occasional cough, now productive Vital Signs Period Temp Pulse Resp BP Sys/Funez Pulse Ox Last 24 Hr 97.6 F-98.1 F 80-98 20-20 113-137/61-73 94 cor-rrr lungs clear abd soft,nt ext no edema CBC, BMP 01/28/19 06:00 01/28/19 06:00 Microbiology 01/24/19 09:15 Blood - Peripheral Venous Blood Culture - Preliminary NO GROWTH OBTAINED AFTER 96 HOURS, INCUBATION TO CONTINUE FOR 1 DAYS. 01/24/19 09:00 Blood - Peripheral Venous Blood Culture - Preliminary NO GROWTH OBTAINED AFTER 96 HOURS, INCUBATION TO CONTINUE FOR 1 DAYS. 01/25/19 04:00 Urine For Antigen Detection Legionella Antigen - Final 01/25/19 04:00 Urine For Antigen Detection Streptococcus pneumoniae Antigen (M - Final 01/24/19 11:25 Urine - Urine Clean Catch Urine Culture - Final Contaminated: Please Repeat a/p RLL pneumonia rocephin day #5 switch to rocephin for another 48 hours clinically improving hopefully home soon belinda/ckd- improved please call back if needed Problem List - Problems (1) Sepsis Code(s): A41.9 - SEPSIS, UNSPECIFIED ORGANISM (2) Pneumonia Code(s): J18.9 - PNEUMONIA, UNSPECIFIED ORGANISM Qualifiers: Laterality: right Lung location: lower lobe of lung (3) Chronic kidney disease Code(s): N18.9 - CHRONIC KIDNEY DISEASE, UNSPECIFIED Qualifiers: Chronic kidney disease stage: stage 3 (moderate) Qualified Code(s): N18.3 - Chronic kidney disease, stage 3 (moderate)
--- NOTE | 2019-01-28 14:25 | PN ---
Progress Note, Physician History of Present Illness: Pt w/o SOB, CP, palpitations, abd pain. Pt took a short walk outside her room yesterday w/o respiratory symptoms - Current Medication List Current Medications: Active Medications Acetaminophen (Tylenol -) 650 mg PO Q6H PRN PRN Reason: FEVER Last Admin: 01/25/19 01:56 Dose: 650 mg Albuterol Sulfate (Ventolin 0.083% Nebulizer Soln -) 1 amp NEB Q4H PRN PRN Reason: SHORT OF BREATH/WHEEZING Last Admin: 01/27/19 22:25 Dose: 1 amp Amlodipine Besylate (Norvasc -) 5 mg PO DAILY [facility] Last Admin: 01/28/19 10:12 Dose: 5 mg Amoxicillin/Clavulanate Potassium (Augmentin - 875mg Tablet) 1 tab PO BID@0800, 1730 [facility] Atorvastatin Calcium (Lipitor -) 10 mg PO HS [facility] Last Admin: 01/27/19 23:41 Dose: 10 mg Budesonide/Formoterol Fumarate (Symbicort 160/4.5mcg -) 2 puff IH BID [facility] Last Admin: 01/28/19 10:16 Dose: 2 puff Cholecalciferol (Vitamin D3 -) 2,000 unit PO DAILY [facility] Last Admin: 01/28/19 10:12 Dose: 2,000 unit Enalapril Maleate (Vasotec -) 20 mg PO BID [facility] Last Admin: 01/28/19 10:12 Dose: 20 mg Ferrous Sulfate (Feosol -) 325 mg PO DAILY [facility] Last Admin: 01/28/19 10:12 Dose: 325 mg Glipizide (Glucotrol -) 5 mg PO 0700 [facility] Last Admin: 01/28/19 06:06 Dose: 5 mg Insulin Aspart (Novolog Vial Sliding Scale -) 1 vial SQ ACHS [facility]; Protocol Last Admin: 01/28/19 11:09 Dose: Not Given Latanoprost (Xalatan 0.005% Eye Drops -) 1 drop OU HS [facility] Last Admin: 01/27/19 23:42 Dose: 1 drop Metformin HCl (Glucophage -) 500 mg PO 0700 [facility] Last Admin: 01/28/19 06:05 Dose: 500 mg Methylprednisolone Sodium Succinate (Solu-Medrol -) 40 mg IVPUSH DAILY [facility] Metoprolol Tartrate (Lopressor -) 25 mg PO BID [facility] Last Admin: 01/28/19 10:12 Dose: 25 mg Pantoprazole Sodium (Protonix -) 40 mg PO BID [facility] Last Admin: 01/28/19 10:11 Dose: 40 mg Polyethylene Glycol (Miralax (For Daily Use) -) 17 gm PO DAILY PRN PRN Reason: CONSTIPATION Warfarin Sodium (Coumadin -) 5 mg PO MoTuWeThFr@1800 [facility] Last Admin: 01/26/19 17:13 Dose: 5 mg Warfarin Sodium (Coumadin -) 6 mg PO SuSa@1800 [facility] - Objective Vital Signs: Vital Signs Temperature 98.1 F 01/28/19 06:00 Pulse Rate 80 01/28/19 06:00 Respiratory Rate 20 01/28/19 06:00 Blood Pressure 122/61 01/28/19 06:00 O2 Sat by Pulse Oximetry (%) 94 L 01/27/19 21:00 Constitutional: Yes: No Distress, Calm Cardiovascular: Yes: Regular Rate and Rhythm, S1, S2 Respiratory: Yes: Regular, CTA Bilaterally. No: Rales Neurological: Yes: Alert, Oriented Labs: CBC, BMP 01/28/19 06:00 01/28/19 06:00 INR, PTT INR 3.87 (0.83-1.09) H 01/28/19 06:00 Problem List - Problems (1) Right lower lobe pneumonia Code(s): J18.1 - LOBAR PNEUMONIA, UNSPECIFIED ORGANISM (2) Former cigarette smoker Code(s): Z87.891 - PERSONAL HISTORY OF NICOTINE DEPENDENCE (3) Hx of pulmonary embolus Code(s): Z86.711 - PERSONAL HISTORY OF PULMONARY EMBOLISM (4) Anemia Code(s): D64.9 - ANEMIA, UNSPECIFIED Qualifiers: Iron deficiency anemia type: chronic blood loss (5) History of colon cancer in adulthood Code(s): Z85.038 - PERSONAL HISTORY OF MALIGNANT NEOPLASM OF LARGE INTESTINE (6) Occult blood in stools Code(s): R19.5 - OTHER FECAL ABNORMALITIES (7) Weight loss, non-intentional Code(s): R63.4 - ABNORMAL WEIGHT LOSS (8) Elevated liver enzymes Code(s): R74.8 - ABNORMAL LEVELS OF OTHER SERUM ENZYMES (9) Fatty (change of) liver, not elsewhere classified Code(s): K76.0 - FATTY (CHANGE OF) LIVER, NOT ELSEWHERE CLASSIFIED (10) Chronic kidney disease Code(s): N18.9 - CHRONIC KIDNEY DISEASE, UNSPECIFIED Qualifiers: Chronic kidney disease stage: stage 3 (moderate) Qualified Code(s): N18.3 - Chronic kidney disease, stage 3 (moderate) (11) Diastolic dysfunction without heart failure Code(s): I51.89 - OTHER ILL-DEFINED HEART DISEASES (12) Hypertension Code(s): I10 - ESSENTIAL (PRIMARY) HYPERTENSION Qualifiers: Hypertension type: essential hypertension Qualified Code(s): I10 - Essential (primary) hypertension (13) Renal cyst, left Code(s): N28.1 - CYST OF KIDNEY, ACQUIRED (14) Hydronephrosis, right Code(s): N13.30 - UNSPECIFIED HYDRONEPHROSIS Assessment/Plan IV Steroids -per Pulmonary; prednisone might be change to PO IV abtx to be switch to PO in AM I encouraged pt to be OOTBC, walk. Pt needs renal US repeated in 6 months. To f/u renal scan report AM labs DC planning Case was d/w pt's nurse.
[2019-01-28] MEDS: AMOX TR/POT CLAV 875MG/125MG TABLETS (FP) PO SCH (17:01)
[2019-01-28] MEDS ORDERED: INSULIN (NOVOLOG) ASPART 100 UNITS/ML 10ML VIAL ONE (20:59)
[2019-01-28] MEDS: ATORVASTATIN CA 10 MG TABLET (FP) PO SCH (21:10)
[2019-01-28] MEDS: LATANOPROST 0.005% OPHTH SOLN 2.5ML BOTTLE OU SCH (21:18)
[2019-01-29] MEDS: glipiZIDE 5 MG TABLET (FP) PO SCH (06:26)
[2019-01-29] MEDS: metFORMIN HCL 500 MG TABLET (FP) PO SCH (06:26)
[2019-01-29] MEDS: INSULIN SLIDING SCALE (NOVOLOG) 1 VIAL SQ SCH ×4 (06:26→22:25)
[2019-01-29] MEDS ORDERED: PT OWN MED DRAWER 7, Y5N ONE ×2 (06:45→08:45)
[2019-01-29 07:31] LABS: HEMATOCRIT 30.9 % (32.4-45.2); HEMOGLOBIN 10.1 GM/dL (10.7-15.3); MCH 25.5 pg (25.7-33.7); MCHC 32.8 g/dl (32.0-36.0); MEAN PLT VOLUME 9.3 fl (7.5-11.1); PLATELET COUNT 425 K/MM3 (134-434); RBC 3.96 M/mm3 (3.60-5.2); RDW 15.2 % (11.6-15.6); WHITE BLOOD COUNT 9.5 K/mm3 (4.0-10.0)
[2019-01-29 07:40] LABS: BLOOD UREA NITROGEN 28.1 mg/dL (7-18); CALCIUM 8.7 mg/dL (8.5-10.1); CREATININE 1.3 mg/dL (0.55-1.3); POTASSIUM 3.8 mmol/L (3.5-5.1)
[2019-01-29 07:54] LABS: INR 3.37 (0.83-1.09); PROTHROMBIN TIME (PATIENT) 40.3 SEC (9.7-13.0)
[2019-01-29] MEDS: FERROUS SO4 325 MG TABLET (FP) PO SCH (09:29)
[2019-01-29] MEDS: amLODIPine BESYLATE 5 MG TABLET (FP) PO SCH (09:29)
[2019-01-29] MEDS: PANTOPRAZOLE 40 MG TABLET (FP) PO SCH ×2 (09:29→22:25)
[2019-01-29] MEDS: METOPROLOL TARTRATE 25 MG TABLET (FP) PO SCH ×2 (09:31→22:25)
[2019-01-29] MEDS: ENALAPRIL MALEATE 10 MG TABLET (FP) PO SCH ×2 (09:31→22:25)
[2019-01-29] MEDS: methylPREDNISolone NA SUCC 40 MG/1 ML VIAL IVPUSH SCH (09:31)
[2019-01-29] MEDS: AMOX TR/POT CLAV 875MG/125MG TABLETS (FP) PO SCH ×2 (09:31→18:05)
[2019-01-29] MEDS: BUDESONIDE/FORMETEROL FUMARATE 160/4.5 mcg INHALER IH SCH ×2 (10:00→22:31)
[2019-01-29] MEDS: CHOLECALCIFEROL (VIT D3) 1,000 UNIT (25 MCG) TABLET PO SCH (10:38)
--- NOTE | 2019-01-29 11:13 | PN ---
Progress Note, Physician History of Present Illness: pulmonary alert,comfortable oob-chair,-cp,-sob - Current Medication List Current Medications: Active Medications Acetaminophen (Tylenol -) 650 mg PO Q6H PRN PRN Reason: FEVER Last Admin: 01/25/19 01:56 Dose: 650 mg Albuterol Sulfate (Ventolin 0.083% Nebulizer Soln -) 1 amp NEB Q4H PRN PRN Reason: SHORT OF BREATH/WHEEZING Last Admin: 01/27/19 22:25 Dose: 1 amp Amlodipine Besylate (Norvasc -) 5 mg PO DAILY [facility] Last Admin: 01/29/19 09:29 Dose: 5 mg Amoxicillin/Clavulanate Potassium (Augmentin - 875mg Tablet) 1 tab PO BID@0800, 1730 [facility] Last Admin: 01/29/19 09:31 Dose: 1 tab Atorvastatin Calcium (Lipitor -) 10 mg PO HS [facility] Last Admin: 01/28/19 21:10 Dose: 10 mg Budesonide/Formoterol Fumarate (Symbicort 160/4.5mcg -) 2 puff IH BID [facility] Last Admin: 01/28/19 21:17 Dose: 2 puff Cholecalciferol (Vitamin D3 -) 2,000 unit PO DAILY [facility] Last Admin: 01/29/19 10:38 Dose: 2,000 unit Enalapril Maleate (Vasotec -) 20 mg PO BID [facility] Last Admin: 01/29/19 09:31 Dose: 20 mg Ferrous Sulfate (Feosol -) 325 mg PO DAILY [facility] Last Admin: 01/29/19 09:29 Dose: 325 mg Glipizide (Glucotrol -) 5 mg PO 0700 [facility] Last Admin: 01/29/19 06:26 Dose: 5 mg Insulin Aspart (Novolog Vial Sliding Scale -) 1 vial SQ ACHS [facility]; Protocol Last Admin: 01/29/19 06:26 Dose: Not Given Latanoprost (Xalatan 0.005% Eye Drops -) 1 drop OU HS [facility] Last Admin: 01/28/19 21:18 Dose: 1 drop Metformin HCl (Glucophage -) 500 mg PO 0700 [facility] Last Admin: 01/29/19 06:26 Dose: 500 mg Methylprednisolone Sodium Succinate (Solu-Medrol -) 40 mg IVPUSH DAILY [facility] Last Admin: 01/29/19 09:31 Dose: 40 mg Metoprolol Tartrate (Lopressor -) 25 mg PO BID [facility] Last Admin: 01/29/19 09:31 Dose: 25 mg Pantoprazole Sodium (Protonix -) 40 mg PO BID [facility] Last Admin: 01/29/19 09:29 Dose: 40 mg Polyethylene Glycol (Miralax (For Daily Use) -) 17 gm PO DAILY PRN PRN Reason: CONSTIPATION Warfarin Sodium (Coumadin -) 5 mg PO MoTuWeThFr@1800 [facility] Last Admin: 01/26/19 17:13 Dose: 5 mg Warfarin Sodium (Coumadin -) 6 mg PO SuSa@1800 [facility] - Objective Vital Signs: Vital Signs Temperature 97.5 F L 01/29/19 06:00 Pulse Rate 73 01/29/19 06:00 Respiratory Rate 19 01/29/19 06:00 Blood Pressure 139/81 01/29/19 06:00 O2 Sat by Pulse Oximetry (%) 96 01/28/19 21:00 Constitutional: Yes: Well Nourished, Calm Eyes: Yes: WNL HENT: Yes: WNL Neck: Yes: WNL Cardiovascular: Yes: Pulse Irregular, S1, S2 Respiratory: Yes: CTA Bilaterally Gastrointestinal: Yes: Normal Bowel Sounds, Soft Extremities: Yes: WNL Edema: No Labs: CBC, BMP 01/29/19 06:12 01/29/19 06:12 INR, PTT INR 3.37 (0.83-1.09) H 01/29/19 06:12 Assessment/Plan Problem List - Problems (1) Former smoker, stopped smoking in distant past Code(s): Z87.891 - PERSONAL HISTORY OF NICOTINE DEPENDENCE (2) Pneumonia Code(s): J18.9 - PNEUMONIA, UNSPECIFIED ORGANISM (3) Anemia Code(s): D64.9 - ANEMIA, UNSPECIFIED Qualifiers: Iron deficiency anemia type: chronic blood loss (4) Chronic kidney disease Code(s): N18.9 - CHRONIC KIDNEY DISEASE, UNSPECIFIED (5) Diastolic dysfunction without heart failure Code(s): I51.89 - OTHER ILL-DEFINED HEART DISEASES (6) History of DVT of lower extremity Code(s): Z86.718 - PERSONAL HISTORY OF OTHER VENOUS THROMBOSIS AND EMBOLISM (7) History of pulmonary embolism Code(s): Z86.711 - PERSONAL HISTORY OF PULMONARY EMBOLISM (8) Hyperlipidemia associated with type 2 diabetes mellitus Code(s): E11.69 - TYPE 2 DIABETES MELLITUS WITH OTHER SPECIFIED COMPLICATION; E78.5 - HYPERLIPIDEMIA, UNSPECIFIED (9) Hypertension Code(s): I10 - ESSENTIAL (PRIMARY) HYPERTENSION Qualifiers: Hypertension type: essential hypertension Qualified Code(s): I10 - Essential (primary) hypertension Assessment/Plan abx O2 as needed BD TX PRN AC No smoking Medrol for CAP sleep apnea testing after discharge chest x-ray am DR FRENCH
--- NOTE | 2019-01-29 11:44 | PN ---
Progress Note, Physician Chief Complaint: in bed NAD afebrile; no CP/SOB but still with SOB especially with walking; to check O2 sat.RA d/w staff niece at bedside d/w pt and niece with pt's permission - Current Medication List Current Medications: Active Medications Acetaminophen (Tylenol -) 650 mg PO Q6H PRN PRN Reason: FEVER Last Admin: 01/25/19 01:56 Dose: 650 mg Albuterol Sulfate (Ventolin 0.083% Nebulizer Soln -) 1 amp NEB Q4H PRN PRN Reason: SHORT OF BREATH/WHEEZING Last Admin: 01/27/19 22:25 Dose: 1 amp Amlodipine Besylate (Norvasc -) 5 mg PO DAILY [facility] Last Admin: 01/29/19 09:29 Dose: 5 mg Amoxicillin/Clavulanate Potassium (Augmentin - 875mg Tablet) 1 tab PO BID@0800, 1730 [facility] Last Admin: 01/29/19 09:31 Dose: 1 tab Atorvastatin Calcium (Lipitor -) 10 mg PO HS [facility] Last Admin: 01/28/19 21:10 Dose: 10 mg Budesonide/Formoterol Fumarate (Symbicort 160/4.5mcg -) 2 puff IH BID [facility] Last Admin: 01/28/19 21:17 Dose: 2 puff Cholecalciferol (Vitamin D3 -) 2,000 unit PO DAILY [facility] Last Admin: 01/29/19 10:38 Dose: 2,000 unit Enalapril Maleate (Vasotec -) 20 mg PO BID [facility] Last Admin: 01/29/19 09:31 Dose: 20 mg Ferrous Sulfate (Feosol -) 325 mg PO DAILY [facility] Last Admin: 01/29/19 09:29 Dose: 325 mg Glipizide (Glucotrol -) 5 mg PO 0700 [facility] Last Admin: 01/29/19 06:26 Dose: 5 mg Insulin Aspart (Novolog Vial Sliding Scale -) 1 vial SQ [facility]; Protocol Last Admin: 01/29/19 06:26 Dose: Not Given Latanoprost (Xalatan 0.005% Eye Drops -) 1 drop OU HS [facility] Last Admin: 01/28/19 21:18 Dose: 1 drop Metformin HCl (Glucophage -) 500 mg PO 0700 [facility] Last Admin: 01/29/19 06:26 Dose: 500 mg Methylprednisolone Sodium Succinate (Solu-Medrol -) 40 mg IVPUSH DAILY [facility] Last Admin: 01/29/19 09:31 Dose: 40 mg Metoprolol Tartrate (Lopressor -) 25 mg PO BID [facility] Last Admin: 01/29/19 09:31 Dose: 25 mg Pantoprazole Sodium (Protonix -) 40 mg PO BID [facility] Last Admin: 01/29/19 09:29 Dose: 40 mg Polyethylene Glycol (Miralax (For Daily Use) -) 17 gm PO DAILY PRN PRN Reason: CONSTIPATION Warfarin Sodium (Coumadin -) 5 mg PO MoTuWeThFr@1800 [facility] Last Admin: 01/26/19 17:13 Dose: 5 mg Warfarin Sodium (Coumadin -) 6 mg PO SuSa@1800 [facility] - Objective Vital Signs: Vital Signs Temperature 97.5 F L 01/29/19 06:00 Pulse Rate 73 01/29/19 06:00 Respiratory Rate 01/29/19 06:00 Blood Pressure 139/81 01/29/19 06:00 O2 Sat by Pulse Oximetry (%) 96 01/28/19 21:00 Constitutional: Yes: No Distress, Calm Eyes: Yes: Conjunctiva Clear HENT: Yes: Atraumatic Neck: Yes: Supple Cardiovascular: Yes: Regular Rate and Rhythm Respiratory: Yes: CTA Bilaterally Gastrointestinal: Yes: Soft. No: Tenderness Genitourinary: No: Hematuria Musculoskeletal: No: Joint Stiffness, Joint Swelling Extremities: No: Cold, Cool, Cyanosis Edema: No Integumentary: No: Rash, Venous Stasis Changes Neurological: Yes: WNL, Alert, Oriented ...Motor Strength: WNL Psychiatric: Yes: WNL, Alert, Oriented. No: Agitated, Suicidal Ideation Labs: CBC, BMP 01/29/19 06:12 01/29/19 06:12 INR, PTT INR 3.37 (0.83-1.09) H 01/29/19 06:12 - ....Imaging Other: Report Reviewed Assessment/Plan 72 YOF with PMH Colon Ca s/p resection 2001, DM, HTN, DVT/PE on coumadin, Nephrolithiasis x3 with obstructed ureterolithiasis, admitted with PNA swtiched to po ATB per ID; COPD exac, PNA: iv steroids taper, O2 prn check O2 sat.RA pre and post exercise coumadin per INR falls pfx dw pt and staff
--- NOTE | 2019-01-29 15:32 | PN ---
Progress Note, Physician History of Present Illness: Dyspnea, cough, wheezes continues to improve. Afebrile. - Current Medication List Current Medications: Active Medications Acetaminophen (Tylenol -) 650 mg PO Q6H PRN PRN Reason: FEVER Last Admin: 01/25/19 01:56 Dose: 650 mg Albuterol Sulfate (Ventolin 0.083% Nebulizer Soln -) 1 amp NEB Q4H PRN PRN Reason: SHORT OF BREATH/WHEEZING Last Admin: 01/27/19 22:25 Dose: 1 amp Amlodipine Besylate (Norvasc -) 5 mg PO DAILY [facility] Last Admin: 01/29/19 09:29 Dose: 5 mg Amoxicillin/Clavulanate Potassium (Augmentin - 875mg Tablet) 1 tab PO BID@0800, 1730 [facility] Last Admin: 01/29/19 09:31 Dose: 1 tab Atorvastatin Calcium (Lipitor -) 10 mg PO HS [facility] Last Admin: 01/28/19 21:10 Dose: 10 mg Budesonide/Formoterol Fumarate (Symbicort 160/4.5mcg -) 2 puff IH BID [facility] Last Admin: 01/28/19 21:17 Dose: 2 puff Cholecalciferol (Vitamin D3 -) 2,000 unit PO DAILY [facility] Last Admin: 01/29/19 10:38 Dose: 2,000 unit Enalapril Maleate (Vasotec -) 20 mg PO BID [facility] Last Admin: 01/29/19 09:31 Dose: 20 mg Ferrous Sulfate (Feosol -) 325 mg PO DAILY [facility] Last Admin: 01/29/19 09:29 Dose: 325 mg Glipizide (Glucotrol -) 5 mg PO 0700 [facility] Last Admin: 01/29/19 06:26 Dose: 5 mg Insulin Aspart (Novolog Vial Sliding Scale -) 1 vial SQ ACHS [facility]; Protocol Last Admin: 01/29/19 13:31 Dose: Not Given Latanoprost (Xalatan 0.005% Eye Drops -) 1 drop OU HS [facility] Last Admin: 01/28/19 21:18 Dose: 1 drop Metformin HCl (Glucophage -) 500 mg PO 0700 [facility] Last Admin: 01/29/19 06:26 Dose: 500 mg Methylprednisolone Sodium Succinate (Solu-Medrol -) 40 mg IVPUSH DAILY [facility] Last Admin: 01/29/19 09:31 Dose: 40 mg Metoprolol Tartrate (Lopressor -) 25 mg PO BID [facility] Last Admin: 01/29/19 09:31 Dose: 25 mg Pantoprazole Sodium (Protonix -) 40 mg PO BID [facility] Last Admin: 01/29/19 09:29 Dose: 40 mg Polyethylene Glycol (Miralax (For Daily Use) -) 17 gm PO DAILY PRN PRN Reason: CONSTIPATION Warfarin Sodium (Coumadin -) 5 mg PO MoTuWeThFr@1800 [facility] Last Admin: 01/26/19 17:13 Dose: 5 mg Warfarin Sodium (Coumadin -) 6 mg PO SuSa@1800 [facility] - Objective Vital Signs: Vital Signs Temperature 97.3 F L 01/29/19 14:52 Pulse Rate 90 01/29/19 14:52 Respiratory Rate 18 01/29/19 14:52 Blood Pressure 128/78 01/29/19 14:52 O2 Sat by Pulse Oximetry (%) 96 01/28/19 21:00 Constitutional: Yes: No Distress, Calm Neck: Yes: Supple Cardiovascular: Yes: Regular Rate and Rhythm Respiratory: Yes: Regular, CTA Bilaterally Gastrointestinal: Yes: Normal Bowel Sounds, Soft, Abdomen, Obese Edema: No Labs: CBC, BMP 01/29/19 06:12 01/29/19 06:12 INR, PTT INR 3.37 (0.83-1.09) H 01/29/19 06:12 - ....Imaging Chest X-ray: Report Reviewed (NAD) Problem List - Problems (1) Chronic anticoagulation Code(s): Z79.01 - SCARRER (CURRENT) USE OF ANTICOAGULANTS (2) Pneumonia Code(s): J18.9 - PNEUMONIA, UNSPECIFIED ORGANISM Qualifiers: Laterality: right Lung location: lower lobe of lung (3) Anemia Code(s): D64.9 - ANEMIA, UNSPECIFIED Qualifiers: Iron deficiency anemia type: chronic blood loss (4) Chronic kidney disease Code(s): N18.9 - CHRONIC KIDNEY DISEASE, UNSPECIFIED Qualifiers: Chronic kidney disease stage: stage 3 (moderate) Qualified Code(s): N18.3 - Chronic kidney disease, stage 3 (moderate) (5) Diastolic dysfunction without heart failure Code(s): I51.89 - OTHER ILL-DEFINED HEART DISEASES (6) History of DVT of lower extremity Code(s): Z86.718 - PERSONAL HISTORY OF OTHER VENOUS THROMBOSIS AND EMBOLISM (7) History of pulmonary embolism Code(s): Z86.711 - PERSONAL HISTORY OF PULMONARY EMBOLISM (8) Hyperlipidemia associated with type 2 diabetes mellitus Code(s): E11.69 - TYPE 2 DIABETES MELLITUS WITH OTHER SPECIFIED COMPLICATION; E78.5 - HYPERLIPIDEMIA, UNSPECIFIED (9) Hypertension Code(s): I10 - ESSENTIAL (PRIMARY) HYPERTENSION Qualifiers: Hypertension type: essential hypertension Qualified Code(s): I10 - Essential (primary) hypertension Assessment/Plan 01/26/2019 Echocardiography: Normal LV size and fxn, mild TR normal RVSP, tr- mild MR 01/28/2019 Renal scan shows possible right-sided obstruction vs stasis 1. RLL pneumonia improving 2. 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 HTN 4. DM 5. Hypercholesterolemia 6. CKD 3 7. History of colon CA s/p resection 8. Left complex renal cyst, history of Nephrolithiasis x3 with obstructed ureterolithiasis s/p stent placement in 2018 PLAN: 1. Continue Norvasc 5 qd, Lipitor 10 qhs, Vasotec 20 bid, Lopressor 25 bid 2. Continue abx per ID, BD, IV steroid taper, O2 as needed to maintain FIO2 3. Hold Warfarin for INR 2-3 and GI protection 4. Renal US confirms left complex renal cyst, repeat 6 months. Renal scan w casi reviewed 5. Will require sleep apnea testing after discharge
[2019-01-29] MEDS ORDERED: INSULIN (NOVOLOG) ASPART 100 UNITS/ML 10ML VIAL ONE ×2 (17:36→21:05)
[2019-01-29] MEDS ORDERED: WARFARIN NA 3 MG TABLET PO SCH (18:00)
[2019-01-29] MEDS: ATORVASTATIN CA 10 MG TABLET (FP) PO SCH (22:25)
[2019-01-29] MEDS: LATANOPROST 0.005% OPHTH SOLN 2.5ML BOTTLE OU SCH (22:25)
[2019-01-30] MEDS: INSULIN SLIDING SCALE (NOVOLOG) 1 VIAL SQ SCH ×3 (06:28→16:59)
[2019-01-30] MEDS: AMOX TR/POT CLAV 875MG/125MG TABLETS (FP) PO SCH ×2 (08:38→16:38)
[2019-01-30] MEDS: metFORMIN HCL 500 MG TABLET (FP) PO SCH (08:38)
[2019-01-30] MEDS: glipiZIDE 5 MG TABLET (FP) PO SCH (08:38)
[2019-01-30 08:42] LABS: INR 2.64 (0.83-1.09); PROTHROMBIN TIME (PATIENT) 31.4 SEC (9.7-13.0)
--- NOTE | 2019-01-30 09:12 | DS ---
Physical Examination Vital Signs: Vital Signs Temperature 98.3 F 01/30/19 06:00 Pulse Rate 85 01/30/19 06:00 Respiratory Rate 19 01/30/19 06:00 Blood Pressure 114/63 01/30/19 06:00 O2 Sat by Pulse Oximetry (%) 95 01/29/19 21:00 Findings/Remarks: doing OK does not need O2 home; to taper steroids as ordered; po ATB x 2 more days f/u as advised Constitutional: Yes: No Distress, Calm Eyes: Yes: Conjunctiva Clear HENT: Yes: Atraumatic Neck: Yes: Supple Cardiovascular: No: Regular Rate and Rhythm Respiratory: Yes: CTA Bilaterally Gastrointestinal: Yes: Soft. No: Tenderness Renal/: No: CVA Tenderness - Left, CVA Tenderness - Right, Hematuria Musculoskeletal: No: Joint Stiffness, Joint Swelling Extremities: No: Cold, Cool, Cyanosis Edema: No Integumentary: No: Rash, Venous Stasis Changes Neurological: Yes: WNL, Alert, Oriented ...Motor Strength: WNL Psychiatric: Yes: WNL, Alert, Oriented. No: Agitated, Suicidal Ideation Labs: CBC, BMP 01/29/19 06:12 01/29/19 06:12 Discharge Summary Reason For Visit: FEVER,PNEUMONIA Current Active Problems Abdominal pain in female patient (Acute) Chronic anticoagulation (Acute) Diverticulosis (Acute) Elevated liver enzymes (Acute) Family history of colon cancer in father (Acute) Fatty (change of) liver, not elsewhere classified (Acute) Former cigarette smoker (Acute) Former smoker, stopped smoking in distant past (Acute) Glaucoma (Acute) History of colon cancer in adulthood (Acute) Hx of pulmonary embolus (Acute) Hydronephrosis due to obstruction of ureteral orifice (Acute) Hydronephrosis due to obstruction of ureteral orifice (Acute) Hydronephrosis, right (Acute) Lactic acidosis (Acute) Morbid obesity (Acute) Occult blood in stools (Acute) Pneumonia (Acute) Renal cyst, left (Acute) Right lower lobe pneumonia (Acute) Sepsis (Acute) Tubular adenoma (Acute) Weight loss, non-intentional (Acute) Procedures: Principal: 73 YOF HTN CHF COPD CRF colon CA, obesity admitted with fever, PNA Other Procedures: IV ATB per ID; iv steroids;. seen by pulm, ID, cardiology and pulmonary; had borderline high LFTs seen by GI; stable;. renal mass/ cyst seen by - outpt f/u Hospital Course: improved with above; DC home on po ATB and steroids tapering f/u as advised; take meds as prescribed; Condition: Improved - Instructions Diet, Activity, Other Instructions: f/u PCP pulmonary and cardiology in 1-4 weeks renal, GI and f/u in 2-3 weeks Return to ER if worse or recurrent c/o Referrals: Hien Sparks [Primary Care Provider] - Jean Carlos Small MD [Staff Physician] - Giovanni Santamaria MD., MD [Staff Physician] - Viral Durán MD [Staff Physician] - Guillaume El MD [Staff Physician] - Sid Yang MD [Staff Physician] - Disposition: VNS/HOME HEALTH CARE - Home Medications Comprehensive Discharge Medication List: Ambulatory Orders Amlodipine Besylate [Norvasc -] 5 mg PO DAILY 12/04/14 Enalapril Maleate [Vasotec -] 20 mg PO BID 12/04/14 Lovastatin 40 mg PO HS 12/04/14 Metoprolol Tartrate [Lopressor -] 25 mg PO BID 12/04/14 Warfarin Na [Coumadin -] 5 mg PO ASDIR 12/04/14 Ergocalciferol (Vitamin D2) [Vitamin D2] 2,000 unit PO DAILY 10/27/16 Glipizide 5 mg PO DAILY 10/27/16 Latanoprost 0.005% Eye Drops [Xalatan 0.005% Eye Drops -] 1 drop OP HS 10/27/16 Warfarin Sodium [Coumadin] 6 mg PO SUSA 10/27/16 metFORMIN HCL [Glucophage -] 500 mg PO DAILY 10/27/16 Budesonide/Formeterol Fumarate [SYMBICORT 160/4.5mcg -] 2 puff IH BID inhaler 01/26/18 Ferrous Sulfate 325 mg PO DAILY 02/17/18 Polyethylene Glycol 3350 [Miralax 119 gm Btl -] 17 gm PO PRN PRN 02/17/18
[2019-01-30] MEDS: METOPROLOL TARTRATE 25 MG TABLET (FP) PO SCH (10:08)
[2019-01-30] MEDS: amLODIPine BESYLATE 5 MG TABLET (FP) PO SCH (10:08)
[2019-01-30] MEDS: ENALAPRIL MALEATE 10 MG TABLET (FP) PO SCH (10:09)
[2019-01-30] MEDS: FERROUS SO4 325 MG TABLET (FP) PO SCH (10:09)
[2019-01-30] MEDS: CHOLECALCIFEROL (VIT D3) 1,000 UNIT (25 MCG) TABLET PO SCH (10:09)
[2019-01-30] MEDS: methylPREDNISolone NA SUCC 40 MG/1 ML VIAL IVPUSH SCH (10:10)
[2019-01-30] MEDS: BUDESONIDE/FORMETEROL FUMARATE 160/4.5 mcg INHALER IH SCH (10:10)
[2019-01-30] MEDS: PANTOPRAZOLE 40 MG TABLET (FP) PO SCH (10:10)
--- NOTE | 2019-01-30 11:14 | PN ---
Progress Note, Physician History of Present Illness: pulmonary alert,comfortable,-resp distress,min cough,-sob - Current Medication List Current Medications: Active Medications Acetaminophen (Tylenol -) 650 mg PO Q6H PRN PRN Reason: FEVER Last Admin: 01/25/19 01:56 Dose: 650 mg Albuterol Sulfate (Ventolin 0.083% Nebulizer Soln -) 1 amp NEB Q4H PRN PRN Reason: SHORT OF BREATH/WHEEZING Last Admin: 01/27/19 22:25 Dose: 1 amp Amlodipine Besylate (Norvasc -) 5 mg PO DAILY [facility] Last Admin: 01/30/19 10:08 Dose: 5 mg Amoxicillin/Clavulanate Potassium (Augmentin - 875mg Tablet) 1 tab PO BID@0800, 1730 [facility] Last Admin: 01/30/19 08:38 Dose: 1 tab Atorvastatin Calcium (Lipitor -) 10 mg PO HS [facility] Last Admin: 01/29/19 22:25 Dose: 10 mg Budesonide/Formoterol Fumarate (Symbicort 160/4.5mcg -) 2 puff IH BID [facility] Last Admin: 01/30/19 10:10 Dose: 2 puff Cholecalciferol (Vitamin D3 -) 2,000 unit PO DAILY [facility] Last Admin: 01/30/19 10:09 Dose: 2,000 unit Enalapril Maleate (Vasotec -) 20 mg PO BID [facility] Last Admin: 01/30/19 10:09 Dose: 20 mg Ferrous Sulfate (Feosol -) 325 mg PO DAILY [facility] Last Admin: 01/30/19 10:09 Dose: 325 mg Glipizide (Glucotrol -) 5 mg PO 0700 [facility] Last Admin: 01/30/19 08:38 Dose: 5 mg Insulin Aspart (Novolog Vial Sliding Scale -) 1 vial SQ ACHS [facility]; Protocol Last Admin: 01/30/19 06:28 Dose: Not Given Latanoprost (Xalatan 0.005% Eye Drops -) 1 drop OU HS [facility] Last Admin: 01/29/19 22:25 Dose: 1 drop Metformin HCl (Glucophage -) 500 mg PO 0700 [facility] Last Admin: 01/30/19 08:38 Dose: 500 mg Methylprednisolone Sodium Succinate (Solu-Medrol -) 40 mg IVPUSH DAILY [facility] Last Admin: 01/30/19 10:10 Dose: 40 mg Metoprolol Tartrate (Lopressor -) 25 mg PO BID [facility] Last Admin: 01/30/19 10:08 Dose: 25 mg Pantoprazole Sodium (Protonix -) 40 mg PO BID [facility] Last Admin: 01/30/19 10:10 Dose: 40 mg Polyethylene Glycol (Miralax (For Daily Use) -) 17 gm PO DAILY PRN PRN Reason: CONSTIPATION Warfarin Sodium (Coumadin -) 5 mg PO MoTuWeThFr@1800 [facility] Last Admin: 01/26/19 17:13 Dose: 5 mg Warfarin Sodium (Coumadin -) 6 mg PO SuSa@1800 [facility] Last Admin: 01/29/19 17:39 Dose: 6 mg - Objective Vital Signs: Vital Signs Temperature 98.3 F 01/30/19 06:00 Pulse Rate 133 H 01/30/19 09:46 Respiratory Rate 19 01/30/19 06:00 Blood Pressure 114/63 01/30/19 06:00 O2 Sat by Pulse Oximetry (%) 92 L 01/30/19 09:46 Constitutional: Yes: Well Nourished, Calm Eyes: Yes: WNL HENT: Yes: WNL Neck: Yes: WNL Cardiovascular: Yes: Regular Rate and Rhythm, S1, S2 Respiratory: Yes: Diminished Gastrointestinal: Yes: Normal Bowel Sounds, Soft Extremities: Yes: WNL Edema: No Labs: CBC, BMP Assessment/Plan Problem List - Problems (1) Former smoker, stopped smoking in distant past Code(s): Z87.891 - PERSONAL HISTORY OF NICOTINE DEPENDENCE (2) Pneumonia Code(s): J18.9 - PNEUMONIA, UNSPECIFIED ORGANISM (3) Anemia Code(s): D64.9 - ANEMIA, UNSPECIFIED Qualifiers: Iron deficiency anemia type: chronic blood loss (4) Chronic kidney disease Code(s): N18.9 - CHRONIC KIDNEY DISEASE, UNSPECIFIED (5) Diastolic dysfunction without heart failure Code(s): I51.89 - OTHER ILL-DEFINED HEART DISEASES (6) History of DVT of lower extremity Code(s): Z86.718 - PERSONAL HISTORY OF OTHER VENOUS THROMBOSIS AND EMBOLISM (7) History of pulmonary embolism Code(s): Z86.711 - PERSONAL HISTORY OF PULMONARY EMBOLISM (8) Hyperlipidemia associated with type 2 diabetes mellitus Code(s): E11.69 - TYPE 2 DIABETES MELLITUS WITH OTHER SPECIFIED COMPLICATION; E78.5 - HYPERLIPIDEMIA, UNSPECIFIED (9) Hypertension Code(s): I10 - ESSENTIAL (PRIMARY) HYPERTENSION Qualifiers: Hypertension type: essential hypertension Qualified Code(s): I10 - Essential (primary) hypertension Assessment/Plan abx O2 as needed BD TX PRN AC No smoking prednisone 20mg daily sleep apnea testing after discharge DR FRENCH
[2019-01-30 11:42] LABS: HEP A AB, IGM Negative (Negative); HEP B CORE AB, TOT Negative (Negative)
[2019-01-30] MEDS ORDERED: INSULIN (NOVOLOG) ASPART 100 UNITS/ML 10ML VIAL ONE (12:13)
[2019-01-30 15:55] VITALS: BP 129/72; PULSE 83; TEMP 98.6
[2019-01-31] MEDS ORDERED: predniSONE 20 MG TABLET (UD) PO SCH (10:00)
== END 2019-01-30 16:44 | disposition home health service (06) | DRG 871 ==
LOC: JER 07:40 → JERBED 13:32 → J5S 18:30
PROVIDERS: ADMIT Internal Medicine; ATTEND Internal Medicine
DX: A41.9 Sepsis, unspecified organism (principal); J18.9 Pneumonia, unspecified organism; Z68.41 Body mass index [BMI] 40.0-44.9, adult; N13.2 Hydronephrosis with renal and ureteral calculous obstruction; N17.9 Acute kidney failure, unspecified; J44.1 Chronic obstructive pulmonary disease with (acute) exacerbation; M19.90 Unspecified osteoarthritis, unspecified site; E66.01 Morbid (severe) obesity due to excess calories; E78.5 Hyperlipidemia, unspecified; R63.4 Abnormal weight loss; K76.0 Fatty (change of) liver, not elsewhere classified; I12.9 Hypertensive chronic kidney disease with stage 1 through stage 4 chronic kidney disease, or unspecified chronic kidney disease; E11.22 Type 2 diabetes mellitus with diabetic chronic kidney disease; N18.3 Chronic kidney disease, stage 3 (moderate); H40.89 Other specified glaucoma; N28.89 Other specified disorders of kidney and ureter; K57.90 Diverticulosis of intestine, part unspecified, without perforation or abscess without bleeding; N28.1 Cyst of kidney, acquired; R19.5 Other fecal abnormalities; R74.8 Abnormal levels of other serum enzymes; D50.0 Iron deficiency anemia secondary to blood loss (chronic); Z87.442 Personal history of urinary calculi; Z85.038 Personal history of other malignant neoplasm of large intestine; Z79.01 Long term (current) use of anticoagulants; Z86.718 Personal history of other venous thrombosis and embolism; Z86.711 Personal history of pulmonary embolism; Z87.891 Personal history of nicotine dependence
CPT/HCPCS: 36415; 71045-TC-FY; 71046-TC-FY; 71250-TC; 74176-TC; 76775-TC; 78708-TC; 80048; 80053; 81003; 82105; 82150; 82378; 82550; 82553; 82728; 82962; 83516; 83540; 83550; 83605; 83690; 83735; 84100; 84484; 85025; 85027; 85044; 85610; 85651; 85730; 86038; 86140; 86704; 86706; 86707; 86708; 86709; 86803; 87040; 87086; 87340; 87804; 87899; 93005; 93010; 93306-TC; 94640; 94761; 99283-25; A9562; G0480; J0131; Q9967

== ENCOUNTER 2022-07-10 04:32 | Day surgery (SDC) | payer OTHER ==
[2022-07-09 12:29] VITALS: BMI 41.2
[2022-07-10 15:00] VITALS: BP 100/68; PULSE 74; RESP 18; TEMP 98
== END 2022-07-10 15:00 | disposition home or self-care (01) ==
LOC: JASU-ENDO 04:32
PROVIDERS: ATTEND Internal Medicine Gastroenterology
PROC: 0DBB8ZX Excision of Ileum, Via Natural or Artificial Opening Endoscopic, Diagnostic (ICD-10-PCS; principal; 2022-07-10 12:15)
DX: Z12.11 Encounter for screening for malignant neoplasm of colon (principal); D12.6 Benign neoplasm of colon, unspecified; K57.30 Diverticulosis of large intestine without perforation or abscess without bleeding; Z98.0 Intestinal bypass and anastomosis status; K64.8 Other hemorrhoids; I10 Essential (primary) hypertension; E11.9 Type 2 diabetes mellitus without complications; Z79.84 Long term (current) use of oral hypoglycemic drugs; Z85.038 Personal history of other malignant neoplasm of large intestine
CPT/HCPCS: 88305-TC

== ENCOUNTER 2022-12-19 13:03 | Observation (INO) | payer OTHER ==
[2022-12-19 15:06] LABS: BASO % 0.8 % (0-2.0); EOS % 2.2 % (0-4.5); HEMATOCRIT 34.2 % (32.4-45.2); HEMOGLOBIN 10.9 GM/dL (10.7-15.3); LYMPH % 27.7 % (8-40); MCH 25.4 pg (25.7-33.7); MEAN CELL VOLUME 79.4 fl (80-96); MEAN PLT VOLUME 8.6 fl (7.5-11.1); MONO % 8.9 % (3.8-10.2); NEUT % 60.4 % (42.8-82.8); PLATELET COUNT 308 10^3/uL (134-434); RBC 4.31 M/mm3 (3.60-5.2); RDW 16.1 % (11.6-15.6); WHITE BLOOD COUNT 6.7 K/mm3 (4.0-10.0)
[2022-12-19 15:17] LABS: INR 3.67 (0.83-1.09)
[2022-12-19 15:19] LABS: ACTIVATED PTT 52.8 SECONDS (25.2-36.5)
[2022-12-19 15:26] LABS: POTASSIUM 5.4 mmol/L (3.5-5.1)
[2022-12-19 15:30] LABS: ALBUMIN 3.9 g/dl (3.4-5.0); BLOOD UREA NITROGEN 43.8 mg/dL (7-18); CALCIUM 10.2 mg/dL (8.5-10.1)
[2022-12-19 15:33] LABS: CREATININE 1.8 mg/dL (0.55-1.3)
[2022-12-19 15:35] LABS: BILIRUBIN,TOTAL 0.4 mg/dL (0.2-1); TOT PROT 7.3 g/dl (6.4-8.2)
[2022-12-19 15:38] LABS: N-TERMINAL BNP 375.9 pg/ml (5-450)
[2022-12-19] MEDS ORDERED: POLYETHYLENE GLYCOL (HEALTHYLAX) 3350 17 GM PACKET PO PRN (15:46)
[2022-12-19] MEDS ORDERED: ACETAMINOPHEN 325 MG TABLET (FP) PO PRN (15:46)
[2022-12-19] MEDS ORDERED: SODIUM CHLORIDE 0.9% 500 ML INFUS.BAG IV ONE (15:49)
[2022-12-19] MEDS ORDERED: metFORMIN HCL 500 MG TABLET (FP) ONE (16:58)
[2022-12-19] MEDS: INSULIN SLIDING SCALE (NOVOLOG) 1 VIAL SQ SCH ×2 (17:11→22:45)
[2022-12-19] MEDS: metFORMIN HCL 500 MG TABLET (FP) PO SCH (17:12)
[2022-12-19] MEDS ORDERED: METOPROLOL TARTRATE 25 MG TABLET (FP) ONE (22:22)
[2022-12-19] MEDS ORDERED: ENALAPRIL MALEATE 5 MG TABLET ONE ×2 (22:22→22:23)
[2022-12-19] MEDS ORDERED: ATORVASTATIN CA 10 MG TABLET (FP) ONE (22:23)
[2022-12-19] MEDS: ATORVASTATIN CA 10 MG TABLET (FP) PO SCH (22:37)
[2022-12-19] MEDS: LATANOPROST 0.005% OPHTH SOLN 2.5ML BOTTLE OU SCH (22:37)
[2022-12-19] MEDS: METOPROLOL TARTRATE 25 MG TABLET (FP) PO SCH (22:37)
[2022-12-19] MEDS: ENALAPRIL MALEATE 10 MG TABLET PO SCH (22:37)
[2022-12-20] MEDS: metFORMIN HCL 500 MG TABLET (FP) PO SCH ×2 (06:14→16:48)
[2022-12-20] MEDS: glipiZIDE 5 MG TABLET (FP) PO SCH (06:14)
[2022-12-20] MEDS: INSULIN SLIDING SCALE (NOVOLOG) 1 VIAL SQ SCH ×4 (06:17→21:21)
[2022-12-20 08:55] LABS: BASO % 1.1 % (0-2.0); EOS % 2.2 % (0-4.5); HEMATOCRIT 30.6 % (32.4-45.2); HEMOGLOBIN 10.1 GM/dL (10.7-15.3); MCH 26.4 pg (25.7-33.7); MCHC 33.2 g/dl (32.0-36.0); MEAN CELL VOLUME 79.5 fl (80-96); MEAN PLT VOLUME 9.2 fl (7.5-11.1); MONO % 8.3 % (3.8-10.2); NEUT % 58.4 % (42.8-82.8); PLATELET COUNT 282 10^3/uL (134-434); RBC 3.85 M/mm3 (3.60-5.2); RDW 15.8 % (11.6-15.6); WHITE BLOOD COUNT 5.9 K/mm3 (4.0-10.0)
[2022-12-20 09:00] LABS: INR 3.56 (0.83-1.09); PROTHROMBIN TIME (PATIENT) 40.8 SEC (9.7-13.0)
[2022-12-20 09:10] LABS: POTASSIUM 4.8 mmol/L (3.5-5.1)
[2022-12-20 09:11] LABS: CALCIUM 9.6 mg/dL (8.5-10.1)
[2022-12-20 09:12] LABS: BLOOD UREA NITROGEN 44.5 mg/dL (7-18)
[2022-12-20 09:15] LABS: CREATININE 1.7 mg/dL (0.55-1.3)
[2022-12-20 09:15] LABS: EPI CELLS >36 /uL (0-25.1); HYALINE CASTS 3 /uL (0-3.1); URINE APPEARANCE CLEAR; URINE BACTERIA 39 /uL (0-1359); URINE BILIRUBIN NEGATIVE (NEGATIVE); URINE COLOR YELLOW; URINE GLUCOSE (UA) NEGATIVE (NEGATIVE); URINE KETONE NEGATIVE (NEGATIVE); URINE LEUK ESTERASE TRACE (NEGATIVE); URINE NITRITE NEGATIVE (NEGATIVE); URINE PROTEIN 1+ (NEGATIVE); URINE RBC 20 /uL (0-23.9); URINE UROBILINOGEN 0.2 mg/dL (0.2-1.0); URINE WBC 23 /uL (0-25.8)
[2022-12-20] MEDS: ENALAPRIL MALEATE 10 MG TABLET PO SCH ×2 (09:56→21:21)
[2022-12-20] MEDS: amLODIPine BESYLATE 5 MG TABLET (FP) PO SCH (09:56)
[2022-12-20] MEDS: METOPROLOL TARTRATE 25 MG TABLET (FP) PO SCH ×2 (09:56→21:21)
[2022-12-20] MEDS: CHOLECALCIFEROL (VIT D3) 1,000 UNIT (25 MCG) TABLET PO SCH (09:56)
[2022-12-20] MEDS: FERROUS SO4 325 MG TABLET (FP) PO SCH (09:56)
[2022-12-20] MEDS ORDERED: methylPREDNISolone NA SUCC 40 MG/1 ML VIAL IVPUSH SCH (10:00)
[2022-12-20] MEDS ORDERED: amLODIPine BESYLATE 5 MG TABLET (FP) PO SCH (10:00)
[2022-12-20] MEDS ORDERED: methylPREDNISolone NA SUCC 125 MG/2 ML VIAL IVPUSH SCH (11:36)
[2022-12-20] MEDS ORDERED: DEXTROSE 5%-WATER - 1,000 ML IV SCH (14:45)
[2022-12-20] MEDS: SODIUM BICARBONATE 650 MG TABLET PO SCH (15:11)
[2022-12-20 16:08] VITALS: BMI 41.3
[2022-12-20] MEDS: WARFARIN NA 5 MG TABLET PO SCH (17:33)
[2022-12-20] MEDS: LATANOPROST 0.005% OPHTH SOLN 2.5ML BOTTLE OU SCH (21:21)
[2022-12-20] MEDS: ATORVASTATIN CA 10 MG TABLET (FP) PO SCH (21:21)
[2022-12-21] MEDS: metFORMIN HCL 500 MG TABLET (FP) PO SCH ×2 (06:02→17:00)
[2022-12-21] MEDS: glipiZIDE 5 MG TABLET (FP) PO SCH (06:02)
[2022-12-21] MEDS: INSULIN SLIDING SCALE (NOVOLOG) 1 VIAL SQ SCH ×4 (06:03→21:19)
[2022-12-21 07:33] LABS: POTASSIUM 4.8 mmol/L (3.5-5.1)
[2022-12-21 07:37] LABS: BLOOD UREA NITROGEN 34.8 mg/dL (7-18); CALCIUM 9.1 mg/dL (8.5-10.1)
[2022-12-21 07:39] LABS: ALBUMIN 3.3 g/dl (3.4-5.0)
[2022-12-21 07:41] LABS: CREATININE 1.5 mg/dL (0.55-1.3)
[2022-12-21 07:43] LABS: BILIRUBIN,TOTAL 0.9 mg/dL (0.2-1); TOT PROT 6.3 g/dl (6.4-8.2)
[2022-12-21] MEDS: amLODIPine BESYLATE 5 MG TABLET (FP) PO SCH (09:11)
[2022-12-21] MEDS: ENALAPRIL MALEATE 10 MG TABLET PO SCH (09:11)
[2022-12-21] MEDS: FERROUS SO4 325 MG TABLET (FP) PO SCH (09:11)
[2022-12-21] MEDS: SODIUM BICARBONATE 650 MG TABLET PO SCH (09:11)
[2022-12-21] MEDS: METOPROLOL TARTRATE 25 MG TABLET (FP) PO SCH ×2 (09:11→21:16)
[2022-12-21] MEDS: CHOLECALCIFEROL (VIT D3) 1,000 UNIT (25 MCG) TABLET PO SCH (09:12)
[2022-12-21 11:02] LABS: INR 2.61 (0.83-1.09)
[2022-12-21] MEDS ORDERED: DEXTROSE 5%-WATER - 1,000 ML IV SCH (12:00)
[2022-12-21] MEDS: WARFARIN NA 5 MG TABLET PO SCH (17:34)
[2022-12-21] MEDS: ATORVASTATIN CA 10 MG TABLET (FP) PO SCH (21:16)
[2022-12-21] MEDS: LATANOPROST 0.005% OPHTH SOLN 2.5ML BOTTLE OU SCH (21:16)
[2022-12-22 05:51] VITALS: RESP 22
[2022-12-22] MEDS: INSULIN SLIDING SCALE (NOVOLOG) 1 VIAL SQ SCH ×2 (06:16→12:49)
[2022-12-22] MEDS: metFORMIN HCL 500 MG TABLET (FP) PO SCH (06:18)
[2022-12-22] MEDS: glipiZIDE 5 MG TABLET (FP) PO SCH (06:18)
[2022-12-22 08:12] LABS: POTASSIUM 5.1 mmol/L (3.5-5.1)
[2022-12-22 08:14] LABS: ALBUMIN 3.4 g/dl (3.4-5.0); CALCIUM 9.2 mg/dL (8.5-10.1)
[2022-12-22 08:16] LABS: BLOOD UREA NITROGEN 31.4 mg/dL (7-18)
[2022-12-22 08:18] LABS: CREATININE 1.5 mg/dL (0.55-1.3)
[2022-12-22 08:19] LABS: BILIRUBIN,TOTAL 0.6 mg/dL (0.2-1); TOT PROT 6.2 g/dl (6.4-8.2)
[2022-12-22 08:52] LABS: INR 2.01 (0.83-1.09); PROTHROMBIN TIME (PATIENT) 23.1 SEC (9.7-13.0)
[2022-12-22] MEDS: SODIUM BICARBONATE 650 MG TABLET PO SCH (09:54)
[2022-12-22] MEDS: FERROUS SO4 325 MG TABLET (FP) PO SCH (09:54)
[2022-12-22] MEDS: METOPROLOL TARTRATE 25 MG TABLET (FP) PO SCH (09:54)
[2022-12-22] MEDS: CHOLECALCIFEROL (VIT D3) 1,000 UNIT (25 MCG) TABLET PO SCH (09:54)
[2022-12-22] MEDS: amLODIPine BESYLATE 5 MG TABLET (FP) PO SCH (09:54)
[2022-12-22] MEDS ORDERED: ENALAPRIL MALEATE 10 MG TABLET PO SCH (10:00)
[2022-12-22] MEDS ORDERED: PANTOPRAZOLE 20 MG TABLET PO SCH (10:00)
[2022-12-22] MEDS ORDERED: FAMOTIDINE 20 MG TABLET PO SCH (10:00)
[2022-12-22 11:50] VITALS: PULSE 95
[2022-12-22 12:02] VITALS: BP 107/59; TEMP 97.9
== END 2022-12-22 15:00 | disposition home or self-care (01) ==
LOC: JER 13:03 → JERBED 15:28 → INTOOBSV 15:28 → UNDOADMOB 15:28 → JERBED 18:50 → J4W 12-20 07:52
PROVIDERS: ADMIT Internal Medicine; ATTEND Internal Medicine
PROC: 3E0337Z Introduction of Electrolytic and Water Balance Substance into Peripheral Vein, Percutaneous Approach (ICD-10-PCS; principal; 2022-12-19)
DX: I13.10 Hypertensive heart and chronic kidney disease without heart failure, with stage 1 through stage 4 chronic kidney disease, or unspecified chronic kidney disease (principal); E11.22 Type 2 diabetes mellitus with diabetic chronic kidney disease; Z88.8 Allergy status to other drugs, medicaments and biological substances; Z79.01 Long term (current) use of anticoagulants; R10.9 Unspecified abdominal pain; N28.9 Disorder of kidney and ureter, unspecified; Z86.718 Personal history of other venous thrombosis and embolism; Z87.442 Personal history of urinary calculi; Z91.018 Allergy to other foods; Z85.038 Personal history of other malignant neoplasm of large intestine; Z87.891 Personal history of nicotine dependence; E66.01 Morbid (severe) obesity due to excess calories
CPT/HCPCS: 0241U-QW; 36415; 71045-TC-FY; 74176-TC; 80048; 80053; 81003; 82962; 83880; 84443; 84484; 85025; 85610; 85730; 87086; 87324; 87449; 93005; 93010; 93306-TC; 94761; 96365; 96366; 99285-25; G0378

== ENCOUNTER 2023-02-08 05:56 | Inpatient (IN) | payer OTHER ==
[2023-02-08] MEDS ORDERED: ACETAMINOPHEN 500 MG TABLET (FP) PO ONE (06:48)
[2023-02-08] MEDS ORDERED: ONDANSETRON *ODT* 4 MG TABLET SL ONE (06:48)
[2023-02-08] MEDS ORDERED: ACETAMINOPHEN 325 MG TABLET (FP) ONE (06:53)
[2023-02-08] MEDS ORDERED: ONDANSETRON *ODT* 4 MG TABLET ONE (06:53)
[2023-02-08 08:05] LABS: BASO % 0.8 % (0-2.0); EOS % 0.2 % (0-4.5); HEMATOCRIT 36.3 % (32.4-45.2); HEMOGLOBIN 11.5 GM/dL (10.7-15.3); LYMPH % 13.4 % (8-40); MCH 24.5 pg (25.7-33.7); MCHC 31.6 g/dl (32.0-36.0); MEAN CELL VOLUME 77.6 fl (80-96); MONO % 4.5 % (3.8-10.2); NEUT % 81.1 % (42.8-82.8); PLATELET COUNT 314 10^3/uL (134-434); RBC 4.68 M/mm3 (3.60-5.2); RDW 16.2 % (11.6-15.6); WHITE BLOOD COUNT 9.9 K/mm3 (4.0-10.0)
[2023-02-08 08:14] LABS: EPI CELLS >36 /uL (0-25.1); HYALINE CASTS 3 /uL (0-3.1); URINE APPEARANCE TURBID; URINE BILIRUBIN NEGATIVE (NEGATIVE); URINE COLOR ORANGE; URINE GLUCOSE (UA) NEGATIVE (NEGATIVE); URINE KETONE NEGATIVE (NEGATIVE); URINE LEUK ESTERASE 2+ (NEGATIVE); URINE NITRITE NEGATIVE (NEGATIVE); URINE PROTEIN 2+ (NEGATIVE); URINE RBC 87 /uL (0-23.9); URINE WBC 208 /uL (0-25.8)
[2023-02-08 08:24] LABS: POTASSIUM 4.8 mmol/L (3.5-5.1)
[2023-02-08 08:27] LABS: BLOOD UREA NITROGEN 24.8 mg/dL (7-18)
[2023-02-08 08:30] LABS: CREATININE 1.8 mg/dL (0.55-1.3)
[2023-02-08 08:31] LABS: BILIRUBIN,TOTAL 0.5 mg/dL (0.2-1); TOT PROT 7.4 g/dl (6.4-8.2)
[2023-02-08 08:37] LABS: URINE BACTERIA FEW /uL (0-1359)
[2023-02-08 08:40] LABS: CALCIUM 9.9 mg/dL (8.5-10.1)
[2023-02-08] MEDS ORDERED: morphine CARPU-JECT 2 MG/1 ML DISP.SYRIN IVPUSH ONE (10:23)
[2023-02-08] MEDS ORDERED: CEFTRIAXONE 1,000 MG in DEXTROSE 5%-WATER - 50 ML IVPB ONE (10:24)
[2023-02-08] MEDS ORDERED: CEFTRIAXONE 1 GM/50 ML BAG ONE (10:38)
[2023-02-08 17:04] VITALS: BMI 42.3
[2023-02-08] MEDS ORDERED: ACETAMINOPHEN 325 MG TABLET (FP) PO PRN (20:14)
[2023-02-08] MEDS ORDERED: POLYETHYLENE GLYCOL (HEALTHYLAX) 3350 17 GM PACKET PO PRN (20:14)
[2023-02-08] MEDS ORDERED: INSULIN (NOVOLOG) ASPART 100 UNITS/ML 10ML VIAL ONE (21:07)
[2023-02-08] MEDS: ENALAPRIL MALEATE 10 MG TABLET PO SCH (21:25)
[2023-02-08] MEDS: ATORVASTATIN CA 10 MG TABLET (FP) PO SCH (21:25)
[2023-02-08] MEDS: METOPROLOL TARTRATE 25 MG TABLET (FP) PO SCH (21:25)
[2023-02-08] MEDS: LATANOPROST 0.005% OPHTH SOLN 2.5ML BOTTLE OU SCH (21:26)
[2023-02-08] MEDS: INSULIN (NOVOLOG) ASPART 100 UNITS/ML 10ML VIAL SQ SCH (21:33)
[2023-02-08] MEDS: SODIUM CHLORIDE 1,000 ML IV SCH (21:35)
[2023-02-09] MEDS: glipiZIDE 5 MG TABLET (FP) PO SCH (06:14)
[2023-02-09] MEDS: INSULIN (NOVOLOG) ASPART 100 UNITS/ML 10ML VIAL SQ SCH ×4 (06:19→22:36)
[2023-02-09 09:25] LABS: INR 3.25 (0.83-1.09); PROTHROMBIN TIME (PATIENT) 37.3 SEC (9.7-13.0)
[2023-02-09 09:27] LABS: BASO % 1.2 % (0-2.0); EOS % 2.5 % (0-4.5); HEMATOCRIT 31.2 % (32.4-45.2); HEMOGLOBIN 9.9 GM/dL (10.7-15.3); LYMPH % 24.8 % (8-40); MCH 25.1 pg (25.7-33.7); MCHC 31.7 g/dl (32.0-36.0); MEAN CELL VOLUME 79.2 fl (80-96); MEAN PLT VOLUME 9.4 fl (7.5-11.1); MONO % 12.3 % (3.8-10.2); NEUT % 59.2 % (42.8-82.8); PLATELET COUNT 271 10^3/uL (134-434); RBC 3.93 M/mm3 (3.60-5.2); RDW 16.1 % (11.6-15.6); WHITE BLOOD COUNT 6.1 K/mm3 (4.0-10.0)
[2023-02-09 09:46] LABS: POTASSIUM 4.4 mmol/L (3.5-5.1)
[2023-02-09 09:52] LABS: CALCIUM 9.5 mg/dL (8.5-10.1)
[2023-02-09 09:53] LABS: ALBUMIN 3.4 g/dl (3.4-5.0); BLOOD UREA NITROGEN 23.5 mg/dL (7-18)
[2023-02-09 09:57] LABS: CREATININE 1.6 mg/dL (0.55-1.3)
[2023-02-09 09:58] LABS: BILIRUBIN,TOTAL 0.5 mg/dL (0.2-1); TOT PROT 6.3 g/dl (6.4-8.2)
[2023-02-09] MEDS: ENALAPRIL MALEATE 10 MG TABLET PO SCH ×2 (10:32→21:55)
[2023-02-09] MEDS: FERROUS SO4 325 MG TABLET (FP) PO SCH (10:33)
[2023-02-09] MEDS: FAMOTIDINE 20 MG TABLET PO SCH (10:33)
[2023-02-09] MEDS: METOPROLOL TARTRATE 25 MG TABLET (FP) PO SCH ×2 (10:33→21:54)
[2023-02-09] MEDS: FUROSEMIDE 20 MG TABLET (FP) PO SCH (10:33)
[2023-02-09] MEDS: amLODIPine BESYLATE 5 MG TABLET (FP) PO SCH (10:33)
[2023-02-09] MEDS: CHOLECALCIFEROL (VIT D3) 1,000 UNIT (25 MCG) TABLET PO SCH (10:33)
[2023-02-09] MEDS: CEFTRIAXONE 1 GM in DEXTROSE 5%-WATER - 50 ML IVPB SCH (10:34)
[2023-02-09] MEDS: SODIUM CHLORIDE 1,000 ML IV SCH (21:54)
[2023-02-09] MEDS: ATORVASTATIN CA 10 MG TABLET (FP) PO SCH (21:54)
[2023-02-09] MEDS: LATANOPROST 0.005% OPHTH SOLN 2.5ML BOTTLE OU SCH (21:58)
[2023-02-10] MEDS: glipiZIDE 5 MG TABLET (FP) PO SCH (06:36)
[2023-02-10] MEDS: INSULIN (NOVOLOG) ASPART 100 UNITS/ML 10ML VIAL SQ SCH ×4 (06:53→23:47)
[2023-02-10 07:50] LABS: BASO % 1.2 % (0-2.0); EOS % 3.6 % (0-4.5); HEMATOCRIT 35.6 % (32.4-45.2); HEMOGLOBIN 11.2 GM/dL (10.7-15.3); LYMPH % 34.1 % (8-40); MCH 24.6 pg (25.7-33.7); MCHC 31.4 g/dl (32.0-36.0); MEAN CELL VOLUME 78.2 fl (80-96); MEAN PLT VOLUME 9.3 fl (7.5-11.1); NEUT % 49.1 % (42.8-82.8); PLATELET COUNT 274 10^3/uL (134-434); RBC 4.55 M/mm3 (3.60-5.2); RDW 16.4 % (11.6-15.6); WHITE BLOOD COUNT 6.7 K/mm3 (4.0-10.0)
[2023-02-10 07:57] LABS: INR 2.28 (0.83-1.09); PROTHROMBIN TIME (PATIENT) 26.2 SEC (9.7-13.0)
[2023-02-10 08:12] LABS: POTASSIUM 4.3 mmol/L (3.5-5.1)
[2023-02-10 08:18] LABS: BLOOD UREA NITROGEN 21.7 mg/dL (7-18); CALCIUM 9.7 mg/dL (8.5-10.1)
[2023-02-10 08:19] LABS: ALBUMIN 3.6 g/dl (3.4-5.0)
[2023-02-10 08:22] LABS: CREATININE 1.5 mg/dL (0.55-1.3)
[2023-02-10 08:23] LABS: BILIRUBIN,TOTAL 0.6 mg/dL (0.2-1); TOT PROT 6.8 g/dl (6.4-8.2)
[2023-02-10] MEDS: CEFTRIAXONE 1 GM in DEXTROSE 5%-WATER - 50 ML IVPB SCH (09:38)
[2023-02-10] MEDS: amLODIPine BESYLATE 5 MG TABLET (FP) PO SCH (09:38)
[2023-02-10] MEDS: ENALAPRIL MALEATE 10 MG TABLET PO SCH ×2 (09:38→21:39)
[2023-02-10] MEDS: CHOLECALCIFEROL (VIT D3) 1,000 UNIT (25 MCG) TABLET PO SCH (09:38)
[2023-02-10] MEDS: FERROUS SO4 325 MG TABLET (FP) PO SCH (09:38)
[2023-02-10] MEDS: FUROSEMIDE 20 MG TABLET (FP) PO SCH (09:38)
[2023-02-10] MEDS: METOPROLOL TARTRATE 25 MG TABLET (FP) PO SCH ×2 (09:38→21:39)
[2023-02-10] MEDS: FAMOTIDINE 20 MG TABLET PO SCH (09:38)
[2023-02-10] MEDS ORDERED: INSULIN (NOVOLOG) ASPART 100 UNITS/ML 10ML VIAL ONE (11:49)
[2023-02-10] MEDS: SODIUM CHLORIDE 1,000 ML IV SCH (21:39)
[2023-02-10] MEDS: LATANOPROST 0.005% OPHTH SOLN 2.5ML BOTTLE OU SCH (21:40)
[2023-02-10] MEDS: ATORVASTATIN CA 10 MG TABLET (FP) PO SCH (21:40)
[2023-02-11] MEDS: glipiZIDE 5 MG TABLET (FP) PO SCH (06:32)
[2023-02-11] MEDS: INSULIN (NOVOLOG) ASPART 100 UNITS/ML 10ML VIAL SQ SCH ×4 (07:34→21:45)
[2023-02-11 08:54] LABS: BASO % 0.6 % (0-2.0); EOS % 4.2 % (0-4.5); HEMOGLOBIN 10.5 GM/dL (10.7-15.3); LYMPH % 24.8 % (8-40); MCH 24.7 pg (25.7-33.7); MCHC 31.8 g/dl (32.0-36.0); MEAN CELL VOLUME 77.7 fl (80-96); MEAN PLT VOLUME 8.7 fl (7.5-11.1); MONO % 11.2 % (3.8-10.2); NEUT % 59.2 % (42.8-82.8); PLATELET COUNT 273 10^3/uL (134-434); RBC 4.24 M/mm3 (3.60-5.2); RDW 16.5 % (11.6-15.6); WHITE BLOOD COUNT 5.4 K/mm3 (4.0-10.0)
[2023-02-11 08:57] LABS: INR 1.68 (0.83-1.09); PROTHROMBIN TIME (PATIENT) 19.4 SEC (9.7-13.0)
[2023-02-11 09:14] LABS: POTASSIUM 3.9 mmol/L (3.5-5.1)
[2023-02-11 09:16] LABS: CALCIUM 9.3 mg/dL (8.5-10.1)
[2023-02-11 09:17] LABS: ALBUMIN 3.5 g/dl (3.4-5.0); BLOOD UREA NITROGEN 21.1 mg/dL (7-18)
[2023-02-11 09:20] LABS: CREATININE 1.5 mg/dL (0.55-1.3)
[2023-02-11 09:21] LABS: BILIRUBIN,TOTAL 0.7 mg/dL (0.2-1); TOT PROT 6.7 g/dl (6.4-8.2)
[2023-02-11] MEDS: FUROSEMIDE 20 MG TABLET (FP) PO SCH (09:26)
[2023-02-11] MEDS: CHOLECALCIFEROL (VIT D3) 1,000 UNIT (25 MCG) TABLET PO SCH (09:26)
[2023-02-11] MEDS: METOPROLOL TARTRATE 25 MG TABLET (FP) PO SCH ×2 (09:26→21:41)
[2023-02-11] MEDS: amLODIPine BESYLATE 5 MG TABLET (FP) PO SCH (09:26)
[2023-02-11] MEDS: FAMOTIDINE 20 MG TABLET PO SCH (09:26)
[2023-02-11] MEDS: ENALAPRIL MALEATE 10 MG TABLET PO SCH ×2 (09:26→21:41)
[2023-02-11] MEDS: FERROUS SO4 325 MG TABLET (FP) PO SCH (09:26)
[2023-02-11] MEDS: CEFTRIAXONE 1 GM in DEXTROSE 5%-WATER - 50 ML IVPB SCH (09:27)
[2023-02-11] MEDS ORDERED: INSULIN (NOVOLOG) ASPART 100 UNITS/ML 10ML VIAL ONE ×2 (17:30→21:24)
[2023-02-11] MEDS: SODIUM CHLORIDE 1,000 ML IV SCH (21:41)
[2023-02-11] MEDS: ATORVASTATIN CA 10 MG TABLET (FP) PO SCH (21:41)
[2023-02-11] MEDS: LATANOPROST 0.005% OPHTH SOLN 2.5ML BOTTLE OU SCH (21:46)
[2023-02-12] MEDS: INSULIN (NOVOLOG) ASPART 100 UNITS/ML 10ML VIAL SQ SCH ×2 (06:20→12:08)
[2023-02-12] MEDS: glipiZIDE 5 MG TABLET (FP) PO SCH (06:20)
[2023-02-12 08:41] LABS: INR 1.32 (0.83-1.09); PROTHROMBIN TIME (PATIENT) 15.3 SEC (9.7-13.0)
[2023-02-12 08:51] LABS: BASO % 0.9 % (0-2.0); HEMATOCRIT 34.3 % (32.4-45.2); HEMOGLOBIN 10.8 GM/dL (10.7-15.3); LYMPH % 23.6 % (8-40); MCH 24.9 pg (25.7-33.7); MCHC 31.4 g/dl (32.0-36.0); MEAN CELL VOLUME 79.3 fl (80-96); MEAN PLT VOLUME 9.6 fl (7.5-11.1); NEUT % 62.5 % (42.8-82.8); PLATELET COUNT 290 10^3/uL (134-434); RBC 4.32 M/mm3 (3.60-5.2); RDW 16.4 % (11.6-15.6); WHITE BLOOD COUNT 6.6 K/mm3 (4.0-10.0)
[2023-02-12 09:00] LABS: POTASSIUM 4.4 mmol/L (3.5-5.1)
[2023-02-12 09:07] LABS: ALBUMIN 3.7 g/dl (3.4-5.0); BLOOD UREA NITROGEN 26.5 mg/dL (7-18); CALCIUM 9.8 mg/dL (8.5-10.1)
[2023-02-12 09:10] LABS: CREATININE 1.4 mg/dL (0.55-1.3)
[2023-02-12 09:12] LABS: BILIRUBIN,TOTAL 0.8 mg/dL (0.2-1); TOT PROT 7.2 g/dl (6.4-8.2)
[2023-02-12] MEDS: FERROUS SO4 325 MG TABLET (FP) PO SCH (09:36)
[2023-02-12] MEDS: FUROSEMIDE 20 MG TABLET (FP) PO SCH (09:36)
[2023-02-12] MEDS: amLODIPine BESYLATE 5 MG TABLET (FP) PO SCH (09:37)
[2023-02-12] MEDS: CEFTRIAXONE 1 GM in DEXTROSE 5%-WATER - 50 ML IVPB SCH (09:37)
[2023-02-12] MEDS: ENALAPRIL MALEATE 10 MG TABLET PO SCH ×2 (09:37→21:27)
[2023-02-12] MEDS: METOPROLOL TARTRATE 25 MG TABLET (FP) PO SCH ×2 (09:37→21:26)
[2023-02-12] MEDS: FAMOTIDINE 20 MG TABLET PO SCH (09:37)
[2023-02-12] MEDS: CHOLECALCIFEROL (VIT D3) 1,000 UNIT (25 MCG) TABLET PO SCH (09:38)
[2023-02-12] MEDS ORDERED: PROPOFOL 20 ML ONE ×3 (12:59→14:14)
[2023-02-12] MEDS ORDERED: SUCCINYLCHOLINE CHLORIDE 200 MG/10 ML SYRINGE ONE (13:01)
[2023-02-12] MEDS ORDERED: PROMETHAZINE HCL 25 MG/1 ML VIAL IVPB PRN (14:25)
[2023-02-12] MEDS ORDERED: LACTATED RINGERS SOLUTION 1,000 ML IV SCH (14:30)
[2023-02-12] MEDS ORDERED: POLYETHYLENE GLYCOL (HEALTHYLAX) 3350 17 GM PACKET PO PRN (14:41)
[2023-02-12] MEDS ORDERED: ACETAMINOPHEN 325 MG TABLET (FP) PO PRN ×2 (14:41→19:38)
[2023-02-12] MEDS: SODIUM CHLORIDE 1,000 ML IV SCH (17:03)
[2023-02-12] MEDS: INSULIN SLIDING SCALE (NOVOLOG) 1 VIAL SQ SCH ×2 (17:04→21:33)
[2023-02-12] MEDS ORDERED: ONDANSETRON 4 MG/2 ML VIAL IVPB PRN (19:08)
[2023-02-12] MEDS: oxyCODONE HCL 5 MG TABLET PO PRN (19:48)
[2023-02-12] MEDS: ATORVASTATIN CA 10 MG TABLET (FP) PO SCH (21:27)
[2023-02-12] MEDS: LATANOPROST 0.005% OPHTH SOLN 2.5ML BOTTLE OU SCH (21:50)
[2023-02-12] MEDS ORDERED: INSULIN (NOVOLOG) ASPART 100 UNITS/ML 10ML VIAL ONE (21:57)
[2023-02-13] MEDS: oxyCODONE HCL 5 MG TABLET PO PRN (03:31)
[2023-02-13] MEDS: glipiZIDE 5 MG TABLET (FP) PO SCH (06:19)
[2023-02-13] MEDS: INSULIN SLIDING SCALE (NOVOLOG) 1 VIAL SQ SCH ×4 (06:27→22:42)
[2023-02-13] MEDS: CHOLECALCIFEROL (VIT D3) 1,000 UNIT (25 MCG) TABLET PO SCH (10:40)
[2023-02-13] MEDS: CEFTRIAXONE 1 GM in DEXTROSE 5%-WATER - 50 ML IVPB SCH (10:40)
[2023-02-13] MEDS: ENALAPRIL MALEATE 10 MG TABLET PO SCH ×2 (10:40→22:25)
[2023-02-13] MEDS: FAMOTIDINE 20 MG TABLET PO SCH (10:40)
[2023-02-13] MEDS: METOPROLOL TARTRATE 25 MG TABLET (FP) PO SCH ×2 (10:41→22:24)
[2023-02-13] MEDS: FUROSEMIDE 20 MG TABLET (FP) PO SCH (10:41)
[2023-02-13] MEDS: amLODIPine BESYLATE 5 MG TABLET (FP) PO SCH (10:41)
[2023-02-13] MEDS: FERROUS SO4 325 MG TABLET (FP) PO SCH (10:41)
[2023-02-13] MEDS: SODIUM CHLORIDE 1,000 ML IV SCH (16:50)
[2023-02-13] MEDS: WARFARIN NA 5 MG TABLET PO SCH (17:39)
[2023-02-13] MEDS ORDERED: WARFARIN NA 5 MG TABLET PO SCH (18:00)
[2023-02-13] MEDS: LATANOPROST 0.005% OPHTH SOLN 2.5ML BOTTLE OU SCH (22:24)
[2023-02-13] MEDS: ATORVASTATIN CA 10 MG TABLET (FP) PO SCH (22:25)
[2023-02-14] MEDS: glipiZIDE 5 MG TABLET (FP) PO SCH (06:19)
[2023-02-14] MEDS: INSULIN SLIDING SCALE (NOVOLOG) 1 VIAL SQ SCH ×4 (06:19→22:11)
[2023-02-14 09:22] LABS: INR 1.25 (0.83-1.09); PROTHROMBIN TIME (PATIENT) 14.5 SEC (9.7-13.0)
[2023-02-14] MEDS: CEFTRIAXONE 1 GM in DEXTROSE 5%-WATER - 50 ML IVPB SCH (09:35)
[2023-02-14] MEDS: FAMOTIDINE 20 MG TABLET PO SCH (09:35)
[2023-02-14] MEDS: FUROSEMIDE 20 MG TABLET (FP) PO SCH (09:35)
[2023-02-14] MEDS: amLODIPine BESYLATE 5 MG TABLET (FP) PO SCH (09:36)
[2023-02-14] MEDS: CHOLECALCIFEROL (VIT D3) 1,000 UNIT (25 MCG) TABLET PO SCH (09:36)
[2023-02-14] MEDS: FERROUS SO4 325 MG TABLET (FP) PO SCH (09:36)
[2023-02-14] MEDS: ENALAPRIL MALEATE 10 MG TABLET PO SCH ×2 (09:36→22:11)
[2023-02-14] MEDS: METOPROLOL TARTRATE 25 MG TABLET (FP) PO SCH ×2 (09:36→22:11)
[2023-02-14 09:41] LABS: BASO % 1.4 % (0-2.0); HEMATOCRIT 34.9 % (32.4-45.2); HEMOGLOBIN 10.8 GM/dL (10.7-15.3); MCH 24.7 pg (25.7-33.7); MEAN CELL VOLUME 79.4 fl (80-96); MEAN PLT VOLUME 9.7 fl (7.5-11.1); NEUT % 63.6 % (42.8-82.8); PLATELET COUNT 262 10^3/uL (134-434); RDW 16.6 % (11.6-15.6); WHITE BLOOD COUNT 6.8 K/mm3 (4.0-10.0)
[2023-02-14 09:43] LABS: BLOOD UREA NITROGEN 21.7 mg/dL (7-18); CALCIUM 9.6 mg/dL (8.5-10.1)
[2023-02-14 09:47] LABS: CREATININE 1.5 mg/dL (0.55-1.3)
[2023-02-14] MEDS ORDERED: INSULIN (NOVOLOG) ASPART 100 UNITS/ML 10ML VIAL ONE (11:47)
[2023-02-14] MEDS: WARFARIN NA 5 MG TABLET PO SCH (17:20)
[2023-02-14] MEDS: CEPHALEXIN MONOHYDRATE 500 MG CAPSULE (UD) PO SCH (22:11)
[2023-02-14] MEDS: ATORVASTATIN CA 10 MG TABLET (FP) PO SCH (22:11)
[2023-02-14] MEDS: LATANOPROST 0.005% OPHTH SOLN 2.5ML BOTTLE OU SCH (22:18)
[2023-02-15] MEDS: INSULIN SLIDING SCALE (NOVOLOG) 1 VIAL SQ SCH ×2 (06:50→11:16)
[2023-02-15] MEDS: glipiZIDE 5 MG TABLET (FP) PO SCH (06:51)
[2023-02-15] MEDS ORDERED: TAMSULOSIN HCL 0.4 MG CAP PO SCH (08:30)
[2023-02-15 08:57] LABS: INR 1.5 (0.83-1.09); PROTHROMBIN TIME (PATIENT) 17.3 SEC (9.7-13.0)
[2023-02-15] MEDS: CHOLECALCIFEROL (VIT D3) 1,000 UNIT (25 MCG) TABLET PO SCH (09:29)
[2023-02-15] MEDS: amLODIPine BESYLATE 5 MG TABLET (FP) PO SCH (09:29)
[2023-02-15] MEDS: FAMOTIDINE 20 MG TABLET PO SCH (09:29)
[2023-02-15] MEDS: FUROSEMIDE 20 MG TABLET (FP) PO SCH (09:29)
[2023-02-15] MEDS: FERROUS SO4 325 MG TABLET (FP) PO SCH (09:29)
[2023-02-15] MEDS: METOPROLOL TARTRATE 25 MG TABLET (FP) PO SCH (09:29)
[2023-02-15] MEDS: CEPHALEXIN MONOHYDRATE 500 MG CAPSULE (UD) PO SCH (09:29)
[2023-02-15] MEDS: ENALAPRIL MALEATE 10 MG TABLET PO SCH (09:31)
[2023-02-15] MEDS ORDERED: INSULIN (NOVOLOG) ASPART 100 UNITS/ML 10ML VIAL ONE (11:14)
[2023-02-15 13:56] VITALS: BP 141/72; PULSE 85; RESP 18; TEMP 98.3
[2023-02-20 12:09] LABS: CA OXALATE MONOHYDR. 80 % (.); SIZE 2x2 mm (.); SOURCE Ureter (.); WEIGHT 2 mg (.)
== END 2023-02-15 01:55 | disposition home or self-care (01) | DRG 660 ==
LOC: JER 05:56 → JERBED 11:09 → J8W 16:36
PROVIDERS: ADMIT Internal Medicine; ATTEND Internal Medicine
PROC: 0T778DZ Dilation of Left Ureter with Intraluminal Device, Via Natural or Artificial Opening Endoscopic (ICD-10-PCS; principal; 2023-02-12 13:00)
PROC: 0TC78ZZ Extirpation of Matter from Left Ureter, Via Natural or Artificial Opening Endoscopic (ICD-10-PCS; 2023-02-12 13:00)
PROC: BT1FZZZ Fluoroscopy of Left Kidney, Ureter and Bladder (ICD-10-PCS; 2023-02-12 13:00)
DX: N13.6 Pyonephrosis (principal); I13.0 Hypertensive heart and chronic kidney disease with heart failure and stage 1 through stage 4 chronic kidney disease, or unspecified chronic kidney disease; I50.30 Unspecified diastolic (congestive) heart failure; N17.9 Acute kidney failure, unspecified; E78.5 Hyperlipidemia, unspecified; Z79.84 Long term (current) use of oral hypoglycemic drugs; Z86.711 Personal history of pulmonary embolism; R79.1 Abnormal coagulation profile; E11.22 Type 2 diabetes mellitus with diabetic chronic kidney disease; N18.9 Chronic kidney disease, unspecified; D64.9 Anemia, unspecified; I25.10 Atherosclerotic heart disease of native coronary artery without angina pectoris; Z79.01 Long term (current) use of anticoagulants
CPT/HCPCS: 36415; 71045-TC-FY; 74176-TC; 76000-TC-FY; 80048; 80053; 81003; 82360; 82962; 83605; 85025; 85610; 87086; 88300-TC; 93005; 93010; 94760; 99285-25; C1758; C2617; Q0162

== ENCOUNTER 2023-02-28 23:51 | Observation (INO) | payer OTHER ==
[2023-02-28 23:56] VITALS: BMI 42.0
[2023-03-01 01:01] LABS: BASO % 1.2 % (0-2.0); EOS % 2.2 % (0-4.5); HEMATOCRIT 33.3 % (32.4-45.2); HEMOGLOBIN 10.7 GM/dL (10.7-15.3); MCH 24.9 pg (25.7-33.7); MCHC 32.1 g/dl (32.0-36.0); MEAN CELL VOLUME 77.8 fl (80-96); MEAN PLT VOLUME 8.5 fl (7.5-11.1); MONO % 9.1 % (3.8-10.2); NEUT % 63.5 % (42.8-82.8); PLATELET COUNT 346 10^3/uL (134-434); RBC 4.29 M/mm3 (3.60-5.2); RDW 16.5 % (11.6-15.6); WHITE BLOOD COUNT 6.9 K/mm3 (4.0-10.0)
[2023-03-01 01:07] LABS: INR 2.63 (0.83-1.09); PROTHROMBIN TIME (PATIENT) 30.2 SEC (9.7-13.0)
[2023-03-01 01:10] LABS: ACTIVATED PTT 45.7 SECONDS (25.2-36.5)
[2023-03-01 01:58] LABS: POTASSIUM 4.2 mmol/L (3.5-5.1)
[2023-03-01 02:00] LABS: CALCIUM 9.2 mg/dL (8.5-10.1)
[2023-03-01 02:01] LABS: ALBUMIN 3.5 g/dl (3.4-5.0); BLOOD UREA NITROGEN 25.5 mg/dL (7-18)
[2023-03-01 02:04] LABS: CREATININE 1.9 mg/dL (0.55-1.3)
[2023-03-01 02:06] LABS: BILIRUBIN,TOTAL 0.3 mg/dL (0.2-1); TOT PROT 6.9 g/dl (6.4-8.2)
[2023-03-01] MEDS ORDERED: SODIUM CHLORIDE 0.9% 500 ML INFUS.BAG IV ONE (02:46)
[2023-03-01 02:53] LABS: EPI CELLS 29 /uL (0-25.1); HYALINE CASTS 2 /uL (0-3.1); URINE APPEARANCE CLEAR; URINE BACTERIA 237 /uL (0-1359); URINE BILIRUBIN NEGATIVE (NEGATIVE); URINE COLOR YELLOW; URINE GLUCOSE (UA) 1+ (NEGATIVE); URINE KETONE TRACE (NEGATIVE); URINE LEUK ESTERASE 2+ (NEGATIVE); URINE NITRITE NEGATIVE (NEGATIVE); URINE PROTEIN TRACE (NEGATIVE); URINE RBC 16 /uL (0-23.9); URINE UROBILINOGEN 0.2 mg/dL (0.2-1.0); URINE WBC 164 /uL (0-25.8)
[2023-03-01] MEDS ORDERED: CEFTRIAXONE 1 GM in DEXTROSE 5%-WATER - 100 ML IVPB ONE (03:18)
[2023-03-01] MEDS ORDERED: CEFTRIAXONE 1 GM/50 ML BAG ONE ×2 (03:36→10:40)
[2023-03-01] MEDS ORDERED: ACETAMINOPHEN 325 MG TABLET (FP) PO PRN ×2 (08:51)
[2023-03-01] MEDS ORDERED: POLYETHYLENE GLYCOL (HEALTHYLAX) 3350 17 GM PACKET PO PRN (08:51)
[2023-03-01] MEDS ORDERED: FAMOTIDINE 20 MG TABLET PO PRN (09:00)
[2023-03-01] MEDS ORDERED: SODIUM CHLORIDE 1,000 ML IV SCH (09:15)
[2023-03-01] MEDS ORDERED: METOPROLOL TARTRATE 25 MG TABLET (FP) ONE ×3 (10:38→22:13)
[2023-03-01] MEDS ORDERED: ENALAPRIL MALEATE 5 MG TABLET ONE ×3 (10:38→22:13)
[2023-03-01] MEDS ORDERED: amLODIPine BESYLATE 5 MG TABLET (FP) ONE (10:38)
[2023-03-01] MEDS ORDERED: WARFARIN NA 5 MG TABLET ONE (10:39)
[2023-03-01] MEDS ORDERED: glipiZIDE 5 MG TABLET (FP) ONE (10:39)
[2023-03-01] MEDS ORDERED: metFORMIN HCL 500 MG TABLET (FP) ONE ×2 (10:39→22:13)
[2023-03-01] MEDS ORDERED: CHOLECALCIFEROL (VIT D3) 1,000 UNIT (25 MCG) TABLET ONE (10:40)
[2023-03-01] MEDS ORDERED: FERROUS SO4 325 MG TABLET (FP) ONE (10:40)
[2023-03-01] MEDS ORDERED: FUROSEMIDE 20 MG TABLET (FP) ONE (10:40)
[2023-03-01] MEDS: FUROSEMIDE 20 MG TABLET (FP) PO SCH (11:12)
[2023-03-01] MEDS: CHOLECALCIFEROL (VIT D3) 1,000 UNIT (25 MCG) TABLET PO SCH (11:12)
[2023-03-01] MEDS: glipiZIDE 5 MG TABLET (FP) PO SCH (11:12)
[2023-03-01] MEDS: METOPROLOL TARTRATE 25 MG TABLET (FP) PO SCH ×2 (11:12→23:09)
[2023-03-01] MEDS: FERROUS SO4 325 MG TABLET (FP) PO SCH (11:12)
[2023-03-01] MEDS: amLODIPine BESYLATE 5 MG TABLET (FP) PO SCH (11:12)
[2023-03-01] MEDS: metFORMIN HCL 500 MG TABLET (FP) PO SCH ×2 (11:12→23:09)
[2023-03-01] MEDS: WARFARIN NA 5 MG TABLET PO SCH (11:12)
[2023-03-01] MEDS: CEFTRIAXONE 1 GM in DEXTROSE 5%-WATER - 50 ML IVPB SCH (11:12)
[2023-03-01] MEDS: ENALAPRIL MALEATE 10 MG TABLET PO SCH ×2 (11:19→23:09)
[2023-03-01] MEDS ORDERED: LATANOPROST 0.005% OPHTH SOLN 2.5ML BOTTLE OU SCH (22:00)
[2023-03-01] MEDS ORDERED: ATORVASTATIN CA 10 MG TABLET (FP) PO SCH (22:00)
[2023-03-02] MEDS ORDERED: glipiZIDE 5 MG TABLET (FP) ONE (07:26)
[2023-03-02] MEDS: glipiZIDE 5 MG TABLET (FP) PO SCH (07:28)
[2023-03-02] MEDS ORDERED: TAMSULOSIN HCL 0.4 MG CAP PO SCH (08:30)
[2023-03-02] MEDS ORDERED: metFORMIN HCL 500 MG TABLET (FP) ONE (09:43)
[2023-03-02] MEDS ORDERED: ENALAPRIL MALEATE 5 MG TABLET ONE (09:43)
[2023-03-02] MEDS ORDERED: WARFARIN NA 5 MG TABLET ONE (09:43)
[2023-03-02] MEDS ORDERED: METOPROLOL TARTRATE 25 MG TABLET (FP) ONE (09:43)
[2023-03-02] MEDS ORDERED: amLODIPine BESYLATE 5 MG TABLET (FP) ONE (09:43)
[2023-03-02] MEDS ORDERED: CHOLECALCIFEROL (VIT D3) 1,000 UNIT (25 MCG) TABLET ONE (09:43)
[2023-03-02] MEDS ORDERED: TAMSULOSIN HCL 0.4 MG CAP ONE (09:44)
[2023-03-02] MEDS ORDERED: FERROUS SO4 325 MG TABLET (FP) ONE (09:44)
[2023-03-02] MEDS ORDERED: FUROSEMIDE 20 MG TABLET (FP) ONE (09:44)
[2023-03-02] MEDS ORDERED: CEFTRIAXONE 1 GM/50 ML BAG ONE (09:45)
[2023-03-02 10:04] VITALS: TEMP 97.8
[2023-03-02] MEDS: WARFARIN NA 5 MG TABLET PO SCH (10:10)
[2023-03-02] MEDS: FERROUS SO4 325 MG TABLET (FP) PO SCH (10:10)
[2023-03-02] MEDS: CEFTRIAXONE 1 GM in DEXTROSE 5%-WATER - 50 ML IVPB SCH (10:11)
[2023-03-02] MEDS: amLODIPine BESYLATE 5 MG TABLET (FP) PO SCH (10:11)
[2023-03-02] MEDS: FUROSEMIDE 20 MG TABLET (FP) PO SCH (10:11)
[2023-03-02] MEDS: metFORMIN HCL 500 MG TABLET (FP) PO SCH (10:11)
[2023-03-02] MEDS: ENALAPRIL MALEATE 10 MG TABLET PO SCH (10:11)
[2023-03-02] MEDS: CHOLECALCIFEROL (VIT D3) 1,000 UNIT (25 MCG) TABLET PO SCH (10:11)
[2023-03-02] MEDS: METOPROLOL TARTRATE 25 MG TABLET (FP) PO SCH (10:11)
[2023-03-02 12:16] LABS: BASO % 1.2 % (0-2.0); EOS % 3.4 % (0-4.5); HEMATOCRIT 32.8 % (32.4-45.2); HEMOGLOBIN 10.6 GM/dL (10.7-15.3); LYMPH % 22.9 % (8-40); MCH 24.8 pg (25.7-33.7); MCHC 32.3 g/dl (32.0-36.0); MEAN CELL VOLUME 76.8 fl (80-96); MEAN PLT VOLUME 8.8 fl (7.5-11.1); MONO % 8.3 % (3.8-10.2); NEUT % 64.2 % (42.8-82.8); PLATELET COUNT 372 10^3/uL (134-434); RBC 4.27 M/mm3 (3.60-5.2); RDW 16.2 % (11.6-15.6); WHITE BLOOD COUNT 6.4 K/mm3 (4.0-10.0)
[2023-03-02 12:20] LABS: INR 3.69 (0.83-1.09); PROTHROMBIN TIME (PATIENT) 42.3 SEC (9.7-13.0)
[2023-03-02 12:45] LABS: POTASSIUM 4.3 mmol/L (3.5-5.1)
[2023-03-02 12:48] LABS: ALBUMIN 3.5 g/dl (3.4-5.0); BLOOD UREA NITROGEN 18.8 mg/dL (7-18)
[2023-03-02 12:51] LABS: CREATININE 1.3 mg/dL (0.55-1.3)
[2023-03-02 12:53] LABS: BILIRUBIN,TOTAL 0.4 mg/dL (0.2-1); TOT PROT 6.8 g/dl (6.4-8.2)
[2023-03-02 13:21] VITALS: BP 94/64; PULSE 100; RESP 15
[2023-03-02] MEDS ORDERED: INSULIN SLIDING SCALE (NOVOLOG) 1 VIAL SQ SCH (16:30)
== END 2023-03-02 14:14 | disposition home or self-care (01) ==
LOC: JER 23:51 → JERBED 03-01 03:38
PROVIDERS: ADMIT Internal Medicine; ATTEND Internal Medicine
PROC: 3E03329 Introduction of Other Anti-infective into Peripheral Vein, Percutaneous Approach (ICD-10-PCS; principal; 2023-03-01)
PROC: 3E0337Z Introduction of Electrolytic and Water Balance Substance into Peripheral Vein, Percutaneous Approach (ICD-10-PCS; 2023-03-01)
DX: R31.9 Hematuria, unspecified (principal); N39.0 Urinary tract infection, site not specified; I12.9 Hypertensive chronic kidney disease with stage 1 through stage 4 chronic kidney disease, or unspecified chronic kidney disease; N17.9 Acute kidney failure, unspecified; E78.5 Hyperlipidemia, unspecified; E11.22 Type 2 diabetes mellitus with diabetic chronic kidney disease; N18.9 Chronic kidney disease, unspecified; Z85.038 Personal history of other malignant neoplasm of large intestine; Z29.8 Encounter for other specified prophylactic measures; Z79.01 Long term (current) use of anticoagulants; Z98.890 Other specified postprocedural states; E66.01 Morbid (severe) obesity due to excess calories; Z68.41 Body mass index [BMI] 40.0-44.9, adult; Z86.718 Personal history of other venous thrombosis and embolism; Z87.891 Personal history of nicotine dependence
CPT/HCPCS: 36415; 71045-TC-FY; 76775-TC; 76856-TC; 80053; 81003; 82962; 85025; 85610; 85730; 86850; 86900; 86901; 87086; 96361; 96365; 96366; 99285-25; G0378